=== PATIENT | female | born 1935 | race Caucasian/White ===

== ENCOUNTER 2018-03-03 06:09 | Inpatient (IN) | payer MEDICARE, BC ==
[2018-03-03 06:37] LABS: ABSOLUTE BASOPHILS # (AUTO) 0.1 10^3/uL (0.0-0.2); ABSOLUTE EOSINOPHILS # (AUTO) 0.1 10^3/uL (0.0-0.6); ABSOLUTE LYMPHOCYTES (AUTO) 1.9 10^3/uL (0.5-4.7); ABSOLUTE MONOCYTES (AUTO) 0.9 10^3/uL (0.1-1.4); ABSOLUTE NEUT (AUTO) 9.7 10^3/uL (1.7-8.2); BASOPHILS % (AUTO) 0.7 % (0-2); HEMATOCRIT 33.1 % (36.0-47.0); HEMOGLOBIN 11.2 g/dL (12.0-15.5); LYMPHOCYTES % (AUTO) 14.7 % (13-45); MEAN CORPUSCULAR HEMOGLOBIN 32.4 pg (27.0-33.4); MEAN CORPUSCULAR HGB CONC 33.9 g/dL (32.0-36.0); MEAN CORPUSCULAR VOLUME 96 fl (80-97); MONOCYTES % (AUTO) 7.4 % (3-13); PLATELET COUNT 416 10^3/uL (150-450); RED BLOOD COUNT 3.46 10^6/uL (3.72-5.28); RED CELL DISTRIBUTION WIDTH 13.9 % (11.5-14.0); SEGMENTED NEUTROPHILS % (AUTO) 76.2 % (42-78); TOTAL CELLS COUNTED % (AUTO) 100 %; WHITE BLOOD COUNT 12.7 10^3/uL (4.0-10.5)
--- NOTE | 2018-03-03 06:50 | RADIOLOGY REPORT (SQ) ---
EXAM DESCRIPTION: XR CHEST 1 VIEW COMPLETED DATE/TME: 03/03/2018 06:26 CLINICAL HISTORY: 82 years, Female, SOB COMPARISON: 03/11/2016 NUMBER OF VIEWS: One TECHNIQUE: AP view of the chest LIMITATIONS: None. FINDINGS: There is a moderate size right pleural effusion with right pulmonary airspace opacities. The left lung is clear. The heart is enlarged. There is no pneumothorax. IMPRESSION: Moderate right-sided pleural effusion with right pulmonary airspace opacities copyright 2010 [employer]- All Rights Reserved
[2018-03-03 06:52] LABS: ALANINE AMINOTRANSFERASE 19 U/L (9-52); ALBUMIN 3.6 g/dL (3.5-5.0); ALKALINE PHOSPHATASE 104 U/L (38-126); ANION GAP 14 (5-19); ASPARTATE AMINO TRANSFERASE 38 U/L (14-36); BILIRUBIN,DIRECT 0.3 mg/dL (0.0-0.4); BILIRUBIN,TOTAL 0.6 mg/dL (0.2-1.3); BLOOD UREA NITROGEN 17 mg/dL (7-20); CALCIUM 9.6 mg/dL (8.4-10.2); CARBON DIOXIDE 27 mmol/L (22-30); CHLORIDE 95 mmol/L (98-107); GLUCOSE 163 mg/dL (75-110); POTASSIUM 4.7 mmol/L (3.6-5.0); SODIUM 135.5 mmol/L (137-145)
[2018-03-03 06:55] LABS: CREATINE KINASE < 20 U/L (30-135)
--- NOTE | 2018-03-03 06:56 | ER Document Report ---
ED General - General Chief Complaint: Breathing Difficulty Stated Complaint: DIFFICULTY BREATHING Time Seen by Provider: 03/03/18 06:25 Notes: 82-year-old female with a history of unknown mediastinal mass and chronic pleural effusions on the right presents with shortness of breath. Patient began having difficulty breathing last night. Is progressively gotten worse and worse the patient saw cardiothoracic surgeon Dr. Garrett yesterday. He draw 50 cc of pleural fluid on the catheter. She was doing well up until last night when she slowly started getting worse and worse for shortness of breath. The patient was discharged last week from [place] because of the shortness of breath. The patient denies any fever or chills. Has had a nonproductive cough which has been typical along. Patient was a smoker but had quit 10 years ago. The patient denies any chest pain at this time his difficulty breathing. TRAVEL OUTSIDE OF THE [place] IN LAST 30 DAYS: No - Related Data Allergies/Adverse Reactions: procaine HCl [From Novocain] Allergy (Intermediate, Verified 03/11/16 11:06) SIGNIFICANT SWELLING AND BRUISING AT SITE OF INJ aloe polysaccharide [From Novacort] Allergy (Verified 03/11/16 11:06) hydrocortisone acetate [From Novacort] Allergy (Verified 03/11/16 11:06) pramoxine HCl [From Novacort] Allergy (Verified 03/11/16 11:06) morphine [Morphine] Adverse Reaction (Verified 03/11/16 11:06) Past Medical History - Social History Smoking Status: Unknown if Ever Smoked Family History: CAD - Past Medical History Cardiac Medical History: Reports: Hx Atrial Fibrillation, Hx Coronary Artery Disease, Hx Heart Attack, Hx Hypercholesterolemia, Hx Hypertension Denies: Hx Congestive Heart Failure, Hx Peripheral Vascular Disease, Hx Pulmonary Embolism, Hx Heart Murmur Pulmonary Medical History: Reports: Hx Pneumonia - A BABY Denies: Hx Asthma, Hx Bronchitis, Hx Respiratory Failure, Hx Sleep Apnea, Hx Tuberculosis Comment Only: Hx COPD - denies Endocrine Medical History: Reports: Hx Hypothyroidism - NEW DX, meds x 1 week only. Denies: Hx Graves' Disease, Hx Hyperthyroidism Renal/ Medical History: Denies: Hx End Stage Renal Disease, Hx Kidney Stones, Hx Peritoneal Dialysis Malignancy Medical History: Denies: Hx Lung Cancer GI Medical History: Reports: Hx Ulcer - son uncertain. Denies: Hx Crohn's Disease, Hx Hiatal Hernia, Hx Irritable Bowel, Hx Liver Failure, Hx Pancreatitis. Comment Only: Hx Gastroesophageal Reflux Disease - denies Musculoskeletal Medical History: Reports Hx Arthritis, Denies Hx Fibromyalgia, Denies Hx Muscular Dystrophy Psychiatric Medical History: Traumatic Medical History: Denies: Hx Fractures Past Surgical History: Reports: Hx Cardiac Catheterization - STENT, Hx Cardiac Surgery - BYPASS X 4, Hx Coronary Artery Bypass Graft - 4 vessel CABG 2004, Hx Orthopedic Surgery - RIGHT TKR. Denies: Hx Appendectomy, Hx Bowel Surgery, Hx Section, Hx Cholecystectomy, Hx Colostomy, Hx Gastric Bypass Surgery, Hx Herniorrhaphy, Hx Hysterectomy, Hx Mastectomy, Hx Tonsillectomy, Hx Tubal Ligation - Immunizations Hx Diphtheria, Pertussis, Tetanus Vaccination: Yes Hx Pneumococcal Vaccination: 12/28/08 Review of Systems - Review of Systems Constitutional: denies: Chills, Fever EENT: denies: Sinus discharge, Throat pain Cardiovascular: Orthopnea, Dyspnea, Edema. denies: Palpitations Respiratory: Short of breath. denies: Hurts to breathe Gastrointestinal: No symptoms reported. denies: Nausea, Vomiting Genitourinary: denies: Dysuria Skin: denies: Rash -: Yes All other systems reviewed and negative Physical Exam - Vital signs Vitals: Temp Pulse Resp BP Pulse Ox 97 F L 119 H 24 H 145/88 H 77 L 03/03/18 06:17 18 06:17 18 06:17 03/03/18 06:17 03/03/18 06:17 - Notes Notes: GENERAL_APPEARANCE: well_nourished, alert, cooperative, obvious respiratory distress VITALS: reviewed, see vital signs table. HEAD: no_swelling\tenderness on the head. EYES: PERRL, EOMI, conjunctiva_clear. NOSE: no_nasal_discharge. MOUTH: (-)decreased moisture. THROAT: no_throat_inflammation, no_airway_obstruction. no_lymphadenopathy NECK: supple, no_neck_tenderness, (-)thyromegaly. BACK: no_back_tenderness. CHEST_WALL: no_chest_tenderness. LUNGS: no_wheezing, no_rales, no_rhonchi, positive accessory muscle use, fair air exchange bilateral slightly less on the right HEART: normal_rate, normal_rhythm, normal_S1, normal_S2, (-)S3, (-)S4, no_ murmur, no_rub. ABDOMEN: normal_BS, soft, no_abd_tenderness, (-)guarding, (-)rebound, no_ organomegaly, no_abd_masses. EXTREMITIES: good pulses in all_extremities, no_swelling\tenderness in the extremities, 2+_edema. SKIN: warm, dry, good_color, no_rash. MENTAL_STATUS: speech_labored, oriented_X_3, normal_affect, responds_ appropriately to questions. Course - Re-evaluation Re-evalutation: 03/03/18 06:58 Patient presents with respiratory distress. Patient does have fluid in her lungs. She is in A. fib but looks like she is chronically in A. fib on her EKG. She is a little bit of rapid ventricular response of 115 and this may be due to hypoxia. She had sats in the 70s when she came in she is on 2 L at home but required 4 L to maintain a sat of 90 and above. 03/03/18 10:08 CT scan was positive for subacute subsegmental pulmonary embolism. The patient was off her Coumadin while she was in [place]. During this hospitalization that ended last week this is likely when the PE occurred. The patient restarted her Coumadin and is therapeutic at this time this is likely not a treatment failure since she had to go off her Coumadin for the Pleurx catheter. The patient is back on her Coumadin. I gave her 40 mg Lasix IV for CHF exacerbation. Her usual oxygen at home was 2 L but she is required 4 L here to maintain her saturations. I have spoken with our hospitalist service they will admit the patient. The patient and family absolutely refused to go back to [place] for further care. - Vital Signs Vital signs: Temp Pulse Resp BP Pulse Ox 97 F L 119 H 17 131/80 H 97 03/03/18 06:17 03/03/18 06:17 03/03/18 09:00 03/03/18 08:30 03/03/18 09:00 - Laboratory Result Diagrams: 03/03/18 06:24 03/03/18 06:24 Laboratory results interpreted by me: 03/03/18 03/03/18 03/03/18 06:24 06:24 06:24 WBC 12.7 H RBC 3.46 L Hgb 11.2 L Hct 33.1 L Absolute Neutrophils 9.7 H PT APTT 48.2 H Sodium 135.5 L Chloride 95 L Glucose 163 H AST 38 H Creatine Kinase < 20 L NT-Pro-B Natriuret Pep 03/03/18 03/03/18 06:24 06:24 WBC RBC Hgb Hct Absolute Neutrophils PT 25.8 H APTT Sodium Chloride Glucose AST Creatine Kinase NT-Pro-B Natriuret Pep 7320 H - EKG Interpretation by Me Rate: Tachycardia Rhythm: A.Fib Discharge - Discharge Clinical Impression: CHF exacerbation, Pleural effusion, Lung mass, Pulmonary embolism Condition: Fair Disposition: ADMITTED INPATIENT Admitting Provider: Hospitalist Unit Admitted: Telemetry Referrals: LARRY GREEN MD [Primary Care Provider] - Follow up as needed
[2018-03-03 07:04] LABS: NT PRO BNP 7320 pg/mL (<450); TROPONIN I < 0.012 ng/mL
[2018-03-03] MEDS ORDERED: FUROSEMIDE INJ/PF 100 MG/10 ML SDV IV ONE (08:50)
--- NOTE | 2018-03-03 09:19 | RADIOLOGY REPORT (SQ) ---
EXAM DESCRIPTION: CTA CHEST COMPLETED DATE/TIME: 03/03/2018 8:57 am REASON FOR STUDY: SOB COMPARISON: Chest films 03/03/2018, 03/13/2016, 11/18/2012 TECHNIQUE: CT scan of the chest performed using helical scanning technique with dynamic intravenous contrast injection. Images reviewed with lung, soft tissue and bone windows. Reconstructed coronal and sagittal MPR images reviewed. Additional 3 dimensional post-processing performed to develop Maximal Intensity Projection images (CT P). All images stored on PACS. All CT scanners at this facility use dose modulation, iterative reconstruction, and/or weight based d osing when appropriate to reduce radiation dose to as low as reasonably achievable (ALARA). [facility]: Dose Right [facility]: CareDose [facility]: Dose Right [facility]: Teradose 4D [facility]: FUNGO STUDIOS CONTRAST TYPE AND DOSE: contrast/concentration: Isovue 350.00 mg/ml; Total Contrast Delivered: 62.0 ml; Total Saline Delivered: 90.0 ml Contrast bolus optimized for the pulmonary arteries. Not diagnostic for the aorta. RENAL FUNCTION: Creatinine 0.6 RADIATION DOSE: CT Rad equipment meets quality standard of care and radiation dose reduction techniq ues were employed. CTDIvol: 16.0 - 19.8 mGy. DLP: 599 mGy-cm. . LIMITATIONS: None. FINDINGS: LUNGS AND PLEURA: There is dense persisting consolidation in the right upper and right low er lobe, similar compared to 12 5. A right-sided PleurX catheter is in place in the posterior costophrenic sulcus, with minimal residual right pleural effusion. The left lung is clear aside from minimal dependent atelectasis in the posterior costophrenic sulcus. Small to moderate left pleural effusion. 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 Descending and ascending thoracic aorta no ndilated. Very heavily calcified origin left proximal common carotid artery. HEART: Marked cardiomegaly with dilatation of the right ventricle and right atrium. Old sternotomy f or CABG with heavily calcified [place] coronary artery. Calcified aortic valve. No pericardial effus ion. PULMONARY ARTERIES: There is poor contrast opacification of the right upper lobe apical segmental pul monary artery and in the right lower lobe segmental pulmonary artery. Findings are worrisome for emb venu. Good filling of the left-sided pulmonary artery and major branches. HILAR AND MEDIASTINAL STRUCTURES: There is adenopathy in the mediastinum as follows: 3.3 x 1.8 cm precarinal lymph node axial image 47, 3.3 x 2.4 cm anterior mediastinal lymph node axial image 48, 3.2 x 1.7 cm anterior mediastinal lymph node axial image 50 HARDWARE: Right-sided PleurX catheter coiled in the posterior costophrenic sulcus. Old sternotomy. UPPER ABDOMEN: No significant findings. Limited exam. THYROID AND OTHER SOFT TISSUES: No masses. No adenopathy. BONES: No acute or significant finding. 3D MIPS: Confirm above findings. OTHER: No other significant finding. IMPRESSION: The poor filling of the right upper lobe apical segmental pulmonary artery and right bas ilar segmental pulmonary arteries worrisome for subacute pulmonary emboli. Persistent right lung dense consolidation with small right pleural effusion. Small to moderate left pleural effusion Significant cardiomegaly COMMENT: Quality ID # [id number]: Final reports with documentation of one or more dose reduction techniques (e.g., Automated exposure control, adjustment of the mA and/or kV according to patient size, use of iterative reconstruction technique) TECHNICAL DOCUMENTATION: JOB ID: [id number] [employer]- All Rights Reserved Reading location - IP/workstation name: [facility]
[2018-03-03 10:01] LABS: INTERNATIONAL RATION (INR) 2.23; PROTHROMBIN TIME 25.8 SEC (11.4-15.4)
--- NOTE | 2018-03-03 12:01 | EKG REPORT ---
SEVERITY:- ABNORMAL ECG - ATRIAL FIBRILLATION, V-RATE 92-155 INCOMPLETE RIGHT BUNDLE BRANCH BLOCK BORDERLINE PROLONGED QT INTERVAL : Confirmed by: Hoda Gordon 03-Mar-2018 12:00:32
--- NOTE | 2018-03-03 12:04 | PDOC H&P ---
History of Present Illness Admission Date/PCP: 03/03/18 10:11 LARRY GREEN MD Patient complains of: Shortness of breath History of Present Illness: PARISH NOVAK is a 82 year old female with history of COPD, history of chronic smoking, coronary artery disease status post quadruple bypass, atrial fibrillation on Coumadin, chronic congestive heart failure, hypothyroidism, hypertension, depression came to the emergency room with complaints of shortness of breath and wheezing from this morning. Patient and the family giving history that she woke up this morning with shortness of breath and rattling in the chest that means wheezing with occasional cough coughing up yellow sputum. Patient was seen by the thoracic surgeon at [facility] and the chest tube was drained with minimal amount coming out. As per the family chest tube was placed 2 weeks ago. Patient denies any fever, chills, sweating. Denies any headaches dizzy spells. She is given the history of loss of appetite. In the last 6 months she lost 25-30 pounds. Denies any problems with urination. Denies any constipation or diarrhea nausea vomiting. Denies any chest pains. Patient uses oxygen 2 L nasal cannula. Despite being on oxygen and using the nebulizer treatments at home the symptoms are not improved family decided to bring her to the hospital for further management. As per the family patient found to have a mediastinal mass and chronic pleural effusions status post biopsy as per the family nonmalignant. Patient was supposed to go for mediastinoscopy for lymph node biopsy but because of the patient's chronic conditions it was not done yet. As I mentioned above she was seen by Dr. Garrett cardiothoracic surgeon yesterday. Patient was recently admitted to [facility] for shortness of breath. Discharged after 3 days. Past Medical History Cardiac Medical History: Reports: Atrial Fibrillation, Coronary Artery Disease, Myocardial Infarction, Hyperlipidema, Hypertension Denies: Congestive Heart Failure, Peripheral Vascular Disease, Pulmonary Embolism, Heart Murmur Pulmonary Medical History: Reports: Pneumonia - A BABY Denies: Asthma, Bronchitis, Respiratory Failure, Sleep Apnea, Tuberculosis Comment Only: Chronic Obstructive Pulmonary Disease (COPD) - denies Endocrine Medical History: Reports: Hypothyroidism - NEW DX, meds x 1 week only Denies: Hyperthyroidism Renal/ Medical History: Denies: End Stage Renal Disease Malignancy Medical History: Reports: Other - Mediastinal mass. Denies: Lung Cancer GI Medical History: Denies: Crohn's Disease, Hiatal Hernia Comment Only: Gastroesophageal Reflux Disease - denies Musculoskeltal Medical History: Reports: Arthritis Denies: Fibromyalgia Psychiatric Medical History: Hematology: Comment Only: Anemia - denies Past Surgical History Past Surgical History: Reports: Cardiac Catheterization - STENT, Coronary Artery Bypass Graft - 4 vessel CABG 2004, Orthopedic Surgery - RIGHT TKR Denies: Amputation, Appendectomy, Section, Cholecystectomy, Colostomy, Gastric Bypass Surgery, Herniorrhaphy, Hysterectomy, Mastectomy, Tonsillectomy, Tubal Ligation Social History Smoking Status: Unknown if Ever Smoked Hx Recreational Drug Use: No Hx Prescription Drug Abuse: No - Advance Directive Resuscitation Status: Do Not Resuscitate Family History Family History: CAD Parental Family History Reviewed: Yes - Son is givihistory of diabetes hypertension coronary artery disease Children Family History Reviewed: Yes Sibling(s) Family History Reviewed.: Yes Medication/Allergy Home Medications: Aspirin [Aspirin 81 mg Chewable Tablet] 81 mg PO ASDIR 03/27/13 Levothyroxine Sodium [Synthroid] 25 mcg PO QAM 03/27/13 Losartan Potassium 100 mg PO QAM 03/27/13 Warfarin Sodium 2.5 mg PO ASDIR 03/27/13 Acetaminophen 500 mg PO Q6H PRN 03/11/16 Azithromycin [Zithromax 250 mg Tablet] 250 mg PO ASDIR PRN #6 tablet 03/11/16 Calcium Carbonate/Vitamin D3 [Caltrate 600 + D Soft Chew Tab] 1 each PO DAILY Furosemide [Lasix 40 mg Tablet] 40 mg PO QAM 03/11/16 Gluc Francois/Chondro Francois A/Vit C/Mn [Glucosamine 1,500 Complex Cap] 1 each PO DAILY Ipratropium [place] [Atrovent 0.06% Nasal [place]] 2 spray NASL QID PRN 03/11/16 Levalbuterol HCl [Xopenex] 2 puff IH Q4H PRN 03/11/16 Metoprolol Succinate 50 mg PO BID 03/11/16 Multivitamin [Multivitamins] 1 each PO DAILY 03/11/16 Simvastatin 20 mg PO DAILY 03/11/16 Spironolactone 25 mg PO DAILY 03/11/16 Umeclidinium Brm/Vilanterol Tr [Anoro Ellipta 62.5-25 Mcg INH] 1 each IH DAILY 03/11/16 Allergies/Adverse Reactions: procaine HCl [From Novocain] Allergy (Intermediate, Verified 03/11/16 11:06) SIGNIFICANT SWELLING AND BRUISING AT SITE OF INJ aloe polysaccharide [From Novacort] Allergy (Verified 03/11/16 11:06) hydrocortisone acetate [From Novacort] Allergy (Verified 03/11/16 11:06) pramoxine HCl [From Novacort] Allergy (Verified 03/11/16 11:06) morphine [Morphine] Adverse Reaction (Verified 03/11/16 11:06) Review of Systems Constitutional: PRESENT: weight loss, other - Patient given the history of weight loss of 25 pounds in the last 6 months.. ABSENT: fever(s) Eyes: ABSENT: visual disturbances Ears: PRESENT: other - Patient has chronic history of hearing difficulties. Nose, Mouth, and Throat: ABSENT: sore throat, vertigo Cardiovascular: PRESENT: dyspnea on exertion. ABSENT: orthropnea Respiratory: PRESENT: cough, dyspnea, sputum. ABSENT: hemoptysis Gastrointestinal: PRESENT: other - Loss of appetite. Neurological: ABSENT: abnormal gait, abnormal speech, confusion, dizziness, focal weakness, syncope Psychiatric: ABSENT: anxiety, depression, homidical ideation, suicidal ideation Physical Exam Vital Signs: Temp Pulse Resp BP Pulse Ox 97 F L 119 H 17 131/80 H 97 03/03/18 06:17 03/03/18 06:17 03/03/18 09:00 03/03/18 08:30 03/03/18 09:00 General appearance: PRESENT: no acute distress, other - Thin petite female comfortable in the bed. Head exam: PRESENT: atraumatic Eye exam: PRESENT: PERRLA Mouth exam: PRESENT: moist Neck exam: ABSENT: carotid bruit, JVD, lymphadenopathy, thyromegaly Respiratory exam: PRESENT: rhonchi, tachypnea, wheezes, other - Chest bilateral extensive wheezing is present in association with the decreased breath sounds. Cardiovascular exam: PRESENT: systolic murmur, tachycardia GI/Abdominal exam: PRESENT: normal bowel sounds, soft. ABSENT: distended, guarding, mass, organolmegaly, rebound, tenderness Neurological exam: PRESENT: alert, awake, oriented to person, oriented to place , oriented to time, oriented to situation, CN II-XII grossly intact. ABSENT: motor sensory deficit Results Impressions: Chest X-Ray 03/03/18 06:26 IMPRESSION: Moderate right-sided pleural effusion with right pulmonary airspace opacities copyright 2010 [employer]- All Rights Reserved Chest/Abdomen CTA 03/03/18 08:05 IMPRESSION: The poor filling of the right upper lobe apical segmental pulmonary artery and right basilar segmental pulmonary arteries worrisome for subacute pulmonary emboli. Persistent right lung dense consolidation with small right pleural effusion. Small to moderate left pleural effusion Significant cardiomegaly Assessment & Plan - Diagnosis (1) COPD exacerbation Is this a current diagnosis for this admission?: Yes Plan: 03[birth year]03/20185616-82-gbim-old female with history of COPD, mediastinal mass came with increased shortness of breath wheezing from this morning. She is requiring 4 L of oxygen via nasal cannula. To maintain the pulse ox more than 88%. Usually she is on 2 L nasal cannula at home. On examination chest bilateral extensive wheezing is present plan is to keep her on 4 L nasal cannula, IV Solu-Medrol 125 mg every 8 hours, DuoNeb nebulizations every 4 as needed, incentive spirometry. CT scan of the chest shows left lower lobe consolidation so requested for sputum culture blood cultures x2 started on IV Rocephin 1 g daily sorry Levaquin 40 mg IV daily.. (2) CHF exacerbation Is this a current diagnosis for this admission?: Yes Plan: 03/03/2018 patient has history of chronic CHF as per the family requested for echocardiogram when she came in during the examination crepitations at the bases. CT scan showing bilateral pleural effusions and pulmonary edema. She was given Lasix 40 mg IV in the ER. It helped in improving her breathing. Do not have the old records of the echocardiogram. Patient is going to be in pain shunt. Due to COPD exacerbation, chronic CHF with bilateral pleural effusions, CT scan showing subacute right upper lobe PE, right lower lobe consolidation she needs to be the hospital for more than 2 midnights. (3) Pulmonary embolism Qualifiers: Chronicity: unspecified Is this a current diagnosis for this admission?: Yes Plan: 03/03/2018 CT chest was done today with IV contrast shows a poor filling in the right upper lobe suggesting there is a subacute pulmonary embolism patient is on Coumadin 2.5 mg p.o.nightly today's creatinine is 2.2 it was therapeutic. We plan to restart her Coumadin 2.5 mg po qhsduring the admission continue the PT/INR check on daily basis. (4) Pneumonia Is this a current diagnosis for this admission?: Yes Plan: 03/03/2018-CT chest shows right lower lobe consolidation. Requested for sputum culture, blood cultures. Started on Rocephin 1 g daily and Levaquin 500 mg IV daily. Pulmonary consult was requested for mediastinal mass right upper lobe subacute PE and right lower lobe consolidation. Patient now on 4 L oxygen. (5) Atrial fibrillation Qualifiers: Atrial fibrillation type: chronic Qualified Code(s): I48.2 - Chronic atrial fibrillation Is this a current diagnosis for this admission?: Yes Plan: 03/03/2018 patient has history of chronic atrial fibrillation on Coumadin 2.5 mg p.o. nightly. The admission INR is 2.2. Plan is to restart the Coumadin and check the INR on daily basis. Cardiogram was requested. (6) HTN (hypertension) Is this a current diagnosis for this admission?: Yes Plan: 03/03/2018 patient has history of hypertension. Blood pressure today is 131/80. Patient's home medications are spironolactone 25 mg p.o. daily losartan 100 mg p.o. daily metoprolol 50 mg p.o. twice daily Lasix 40 mg p.o. every afternoon. I am going to restart her home medications and change Lasix from p.o. to IV during this hospital stay. (7) Hypothyroidism Is this a current diagnosis for this admission?: Yes Plan: Patient has history of hypothyroidism on levothyroxine 25 mcg p.o. daily. Plan is to restart the medication during the hospital stay. (8) Coronary artery disease involving autologous artery coronary bypass graft Is this a current diagnosis for this admission?: Yes Plan: 03/03/2018 patient has history of coronary artery disease status post quadruple bypass. Patient denies any chest pains during this hospital stay. Plan is to resume her home medications. - Time Time Spent: 30 to 50 Minutes Smoking Cessation Education: 3 to 10 minutes Medications reviewed and adjusted accordingly: Yes Anticipated discharge: Home
[2018-03-03 13:02] LABS: HEMATOCRIT 32.7 % (36.0-47.0); HEMOGLOBIN 11.3 g/dL (12.0-15.5); MEAN CORPUSCULAR HEMOGLOBIN 32.5 pg (27.0-33.4); MEAN CORPUSCULAR HGB CONC 34.5 g/dL (32.0-36.0); MEAN CORPUSCULAR VOLUME 94 fl (80-97); PLATELET COUNT 309 10^3/uL (150-450); RED BLOOD COUNT 3.47 10^6/uL (3.72-5.28); RED CELL DISTRIBUTION WIDTH 13.9 % (11.5-14.0); WHITE BLOOD COUNT 8.2 10^3/uL (4.0-10.5)
[2018-03-03 13:37] LABS: INTERNATIONAL RATION (INR) 2.45; PROTHROMBIN TIME 27.7 SEC (11.4-15.4)
[2018-03-03] MEDS: CEFTRIAXONE SODIUM 1,000 MG in DEXTROSE 5%-WATER 50 ML IV SCH (13:49)
[2018-03-03] MEDS: METHYLPREDNISOLONE INJ 125 MG/2 ML SDV IV SCH ×2 (14:32→22:26)
[2018-03-03 14:38] LABS: AMORPHOUS SEDIMENT,URINE 1+ /HPF; APPEARANCE,URINE TURBID; BILIRUBIN,URINE NEGATIVE (NEGATIVE); COLOR,URINE YELLOW; GLUCOSE, URINE NEGATIVE (NEGATIVE); KETONES,URINE NEGATIVE (NEGATIVE); LEUKOCYTE ESTERASE,URINE NEGATIVE (NEGATIVE); NITRITE,URINE NEGATIVE (NEGATIVE); PROTEIN,URINE 30 mg/dL (NEGATIVE); URINE SPECIFIC GRAVITY 1.046; UROBILINOGEN,URINE NEGATIVE mg/dL (<2.0)
--- NOTE | 2018-03-03 19:22 | XCELERA REPORT ---
[address] [address] Transthoracic Echocardiogram Report Name: PARISH NOVAK Age: 82 yrs Gender: Female : 1935 Patient Status: Inpatient Patient Location: [place] [address]^A Study Date: 03/03/2018 02:23 PM Height: 65 in Weight: 120 lb BSA: 1.6 m2 Procedure: A two-dimensional transthoracic echocardiogram with color flow and Doppler was performed. Study Quality: Technically suboptimal. The study was technically difficult with many images being suboptimal in quality. Images were not obtained from all of the standard acoustic windows due to the limited scope of the study. Reason For Study: chf History: CHF. Ordering Physician: LEONOR GAO Performed By: Serena Zheng Interpretation Summary Images were not obtained from all of the standard acoustic windows due to the limited scope of the study. The left ventricle is normal in size. There is normal left ventricular wall thickness. No True apical 2 chamber views obtained.Hence cannot comment on the apical anterior , the basal anterior, the basal inferior and apical inferior rodrigues.The mid anterior , the mid inferior and the rest of the LV rodrigues contract normally. .Normal LVEF is normal and is greater thn 60% in the limited views. Flattened septum is consistent with RV pressure/volume overload There is no thrombus. Doppler measurements suggest normal left ventricular diastolic function The right ventricle is moderately dilated. The right ventricular systolic function is moderate to severely reduced. The right atrium is moderate to severely dilated. The left atrium is severely dilated. There is mild mitral annular calcification. There is no evidence of mitral valve prolapse. There is no vegetation seen on the mitral valve. There is no mitral valve stenosis. There is a moderate amount of mitral regurgitation There is no aortic valvular vegetation. There is mild aortic stenosis There is a peak gradient of 23 mm of Hg. There is a mild amount of aortic regurgitation There is no LVOT obstruction. There is no tricuspid stenosis. There is a severe amount of tricuspid regurgitation There is servere pulmonary hypertension by echo There is no pulmonic valvular stenosis. There is a mild amount of pulmonic regurgitation There is no pericardial effusion. The interatrial septum is intact with no evidence for an atrial septal defect. The inferior vena cava appeared dilated and decreased < 50% with respiration (RAP 15-20 mmHg) RVSP is 110 to 115 mm of Hg , with RA mean of 15 to 20. MMode/2D Measurements & Calculations RVDd: 4.0 cm LVIDd: 4.3 cm FS: 32.0 % Ao root diam: 2.7 cm IVSd: 0.73 cm LVIDs: 2.9 cm EDV(Teich): 81.6 ml Ao root area: 5.6 cm2 LVPWd: 0.76 cm ESV(Teich): 32.2 ml LA dimension: 5.0 cm EF(Teich): 60.5 % LVOT diam: 2.0 cm LVOT area: 3.1 cm2 Doppler Measurements & Calculations MV E max rafael: MV P1/2t max rafael: Ao V2 max: AI max rafael: 142.6 cm/sec 143.6 cm/sec 235.6 cm/sec 369.2 cm/sec MV A max rafael: MV P1/2t: 47.6 msec Ao max PG: AI max P.9 cm/sec MVA(P1/2t): 4.6 cm2 22.2 mmHg 54.5 mmHg MV E/A: 3.2 MV dec slope: Ao V2 mean: AI dec slope: 161.9 cm/sec 306.9 cm/sec2 883.8 cm/sec2 Ao mean PG: AI P1/2t: MV dec time: 0.15 sec12.0 mmHg 352.4 msec Ao V2 VTI: 47.0 cm SOCORRO(I,D): 0.88 cm2 SOCORRO(V,D): 0.90 cm2 LV V1 max PG: SV(LVOT): 41.2 ml PA V2 max: PI end-d rafael: 1.9 mmHg 71.6 cm/sec 205.0 cm/sec LV V1 mean PG: PA max P.91 mmHg 2.0 mmHg LV V1 max: 68.4 cm/sec LV V1 mean: 44.1 cm/sec LV V1 VTI: 13.4 cm TR max rafael: AV P1/2t-pr_phl: MV P1/2t-pr_phl: 485.6 cm/sec 352.4 msec 47.6 msec TR max P.3 mmHg Left Ventricle The left ventricle is normal in size. There is normal left ventricular wall thickness. No True apical 2 chamber views obtained.Hence cannot comment on the apical anterior , the basal anterior, the basal inferior and apical inferior rodrigues.The mid anterior , the mid inferior and the rest of the LV rodrigues contract normally. .Normal LVEF is normal and is greater thn 60% in the limited views. Doppler measurements suggest normal left ventricular diastolic function. Flattened septum is consistent with RV pressure/volume overload. There is no thrombus. Right Ventricle The right ventricle is moderately dilated. The right ventricular systolic function is moderate to severely reduced. Atria The right atrium is moderate to severely dilated. The left atrium is severely dilated. The interatrial septum is intact with no evidence for an atrial septal defect. Mitral Valve There is mild mitral annular calcification. There is no evidence of mitral valve prolapse. There is no vegetation seen on the mitral valve. There is no mitral valve stenosis. There is a moderate amount of mitral regurgitation. Aortic Valve There is no aortic valvular vegetation. There is mild aortic stenosis. There is a peak gradient of 23 mm of Hg. There is no LVOT obstruction. There is a mild amount of aortic regurgitation. Tricuspid Valve There is no tricuspid stenosis. There is a severe amount of tricuspid regurgitation. There is servere pulmonary hypertension by echo. RVSP is 110 to 115 mm of Hg , with RA mean of 15 to 20. Pulmonic Valve There is no pulmonic valvular stenosis. There is a mild amount of pulmonic regurgitation. Great Vessels The aortic root is not well visualized. The inferior vena cava appeared dilated and decreased < 50% with respiration (RAP 15-20 mmHg). Effusions There is no pericardial effusion. : LEONOR GAO > Sheyla Rodriguez
[2018-03-03] MEDS: LEVOFLOXACIN 500 MG/D5W RTU 500 MG/100 ML RTUPB IV SCH (19:28)
[2018-03-03] MEDS: WARFARIN SODIUM 2.5 MG TABLET PO SCH (22:26)
[2018-03-03] MEDS: FUROSEMIDE INJ/PF 40 MG/4 ML SDV IV SCH (22:26)
[2018-03-03] MEDS: METOPROLOL SUCCINATE 50 MG TAB.SR.24H PO SCH (22:26)
[2018-03-04] MEDS: METHYLPREDNISOLONE INJ 125 MG/2 ML SDV IV SCH ×3 (05:16→22:35)
[2018-03-04 06:28] LABS: ABSOLUTE LYMPHOCYTES (AUTO) 0.4 10^3/uL (0.5-4.7); ABSOLUTE MONOCYTES (AUTO) 0.1 10^3/uL (0.1-1.4); BASOPHILS % (AUTO) 0.1 % (0-2); HEMATOCRIT 33.2 % (36.0-47.0); HEMOGLOBIN 11.4 g/dL (12.0-15.5); LYMPHOCYTES % (AUTO) 6.8 % (13-45); MEAN CORPUSCULAR HEMOGLOBIN 32.3 pg (27.0-33.4); MEAN CORPUSCULAR HGB CONC 34.4 g/dL (32.0-36.0); MEAN CORPUSCULAR VOLUME 94 fl (80-97); MONOCYTES % (AUTO) 1.1 % (3-13); PLATELET COUNT 292 10^3/uL (150-450); RED BLOOD COUNT 3.53 10^6/uL (3.72-5.28); TOTAL CELLS COUNTED % (AUTO) 100 %; WHITE BLOOD COUNT 6.6 10^3/uL (4.0-10.5)
[2018-03-04 06:35] LABS: INTERNATIONAL RATION (INR) 2.91; PROTHROMBIN TIME 31.8 SEC (11.4-15.4)
[2018-03-04 06:54] LABS: ALANINE AMINOTRANSFERASE 23 U/L (9-52); ALBUMIN 3.1 g/dL (3.5-5.0); ALKALINE PHOSPHATASE 88 U/L (38-126); ANION GAP 11 (5-19); ASPARTATE AMINO TRANSFERASE 26 U/L (14-36); BILIRUBIN,DIRECT 0.4 mg/dL (0.0-0.4); BILIRUBIN,TOTAL 0.6 mg/dL (0.2-1.3); BLOOD UREA NITROGEN 17 mg/dL (7-20); CALCIUM 9.1 mg/dL (8.4-10.2); CARBON DIOXIDE 32 mmol/L (22-30); CHLORIDE 93 mmol/L (98-107); GLUCOSE 127 mg/dL (75-110); POTASSIUM 4.7 mmol/L (3.6-5.0); SODIUM 135.8 mmol/L (137-145); TOTAL PROTEIN 6.1 g/dL (6.3-8.2)
[2018-03-04] MEDS ORDERED: LOSARTAN POTASSIUM 50 MG TABLET PO SCH (10:00)
[2018-03-04] MEDS ORDERED: CEFTRIAXONE INJ 1000 MG VIAL IV SCH (10:00)
[2018-03-04] MEDS ORDERED: LEVOTHYROXINE SODIUM 0.025 MG TABLET PO SCH (10:00)
[2018-03-04] MEDS: METOPROLOL SUCCINATE 50 MG TAB.SR.24H PO SCH ×2 (10:12→22:34)
[2018-03-04] MEDS: FUROSEMIDE INJ/PF 40 MG/4 ML SDV IV SCH ×2 (10:12→22:35)
[2018-03-04] MEDS: IPRATROPIUM/ALBUTEROL 0.5-2.5 MG/3 ML AMPUL NEB PRN (12:40)
[2018-03-04] MEDS: CEFTRIAXONE SODIUM 1,000 MG in DEXTROSE 5%-WATER 50 ML IV SCH (13:23)
[2018-03-04] MEDS: LEVOFLOXACIN 500 MG/D5W RTU 500 MG/100 ML RTUPB IV SCH (17:27)
--- NOTE | 2018-03-04 17:33 | PDOC PROGRESS REPORT ---
Subjective Progress Note for:: 03/04/18 Subjective:: The patient is an 82-year-old female with past medical history of atrial fibrillation (chronically anticoagulated on Coumadin) coronary artery disease, OR, remote CABG, CHF, hyperlipidemia, hypertension, COPD, hypothyroidism, arthritis, depression and recent admission to [facility] for acute respiratory failure, new diagnosis of mediastinal mass (initial biopsy benign), and bilateral pleural effusion s/p chest tube who was admitted 03/03/2018 for acute respiratory failure with hypoxia secondary to COPD exacerbation, CHF exacerbation, pulmonary embolism, and pneumonia. The patient was seen on morning rounds with her son present. She was found resting in bed comfortably on supplemental oxygen via nasal cannula at 4 L/min. The patient's son reports that she is only been prescribed oxygen for the previous month; has been using 2 L/min at home. She was discharged from [facility] approximately 3 days ago and has progressively worsened since that time. The patient reports that she is feeling much better today as compared to her time of admission. They both relate that they believe the IV Lasix has made a significant improvement in her breathing. They deny that she has had any peripheral edema. Patient denies fever, chills, headache, chest pain, palpitations, orthopnea, cough, abdominal pain, nausea vomiting and diarrhea. The patient has no questions or concerns at this time. The patient's son, however, understandably has many concerns regarding the patient's recently worsened respiratory status. Dr. Hurst was present at the end of the exam and was able to address many of his questions. No concerns per nursing. Reason For Visit: COPD EXACERBATION Physical Exam Vital Signs: Temp Pulse Resp BP Pulse Ox 97.7 F 92 16 106/56 L 96 03/04/18 15:37 03/04/18 15:37 03/04/18 15:37 03/04/18 15:37 03/04/18 15:37 Intake & Output 03/03/18 03/04/18 03/05/18 06:59 06:59 06:59 Intake Total 550 1003 Output Total 2100 Balance -1550 1003 General appearance: PRESENT: no acute distress, cooperative, hard of hearing, thin, well-developed Head exam: PRESENT: atraumatic, normocephalic Eye exam: PRESENT: conjunctiva pink, EOMI, PERRLA. ABSENT: scleral icterus Ear exam: PRESENT: normal external ear exam Mouth exam: PRESENT: moist, tongue midline Teeth exam: PRESENT: edentulous Neck exam: PRESENT: carotid bruit, JVD, lymphadenopathy. ABSENT: tenderness, thyromegaly Respiratory exam: PRESENT: decreased breath sounds - Bibasilar, prolonged expiratory phas, rhonchi - R>L, symmetrical, tachypnea. ABSENT: rales, wheezes Cardiovascular exam: PRESENT: irregular rhythm, +S1, +S2, systolic murmur. ABSENT: diastolic murmur, rubs Pulses: PRESENT: normal dorsalis pedis pul Vascular exam: PRESENT: normal capillary refill GI/Abdominal exam: PRESENT: normal bowel sounds, soft. ABSENT: distended, guarding, mass, organolmegaly, rebound, tenderness Rectal exam: PRESENT: deferred Extremities exam: PRESENT: full ROM. ABSENT: calf tenderness, clubbing, pedal edema Neurological exam: PRESENT: alert, awake, oriented to person, oriented to place , oriented to time, oriented to situation, CN II-XII grossly intact. ABSENT: motor sensory deficit Psychiatric exam: PRESENT: appropriate affect, normal mood. ABSENT: homicidal ideation, suicidal ideation Skin exam: PRESENT: dry, intact, pallor, warm. ABSENT: cyanosis, rash Results Laboratory Results: 03/04/18 05:51 03/04/18 05:51 03/04/18 03/04/18 05:51 05:51 WBC 6.6 RBC 3.53 L Hgb 11.4 L Hct 33.2 L MCV 94 MCH 32.3 MCHC 34.4 RDW 14.0 Plt Count 292 Seg Neutrophils % 92.0 H Lymphocytes % 6.8 L Monocytes % 1.1 L Eosinophils % 0.0 Basophils % 0.1 Absolute Neutrophils 6.0 Absolute Lymphocytes 0.4 L Absolute Monocytes 0.1 Absolute Eosinophils 0.0 Absolute Basophils 0.0 Sodium 135.8 L Potassium 4.7 Chloride 93 L Carbon Dioxide 32 H Anion Gap 11 BUN 17 Creatinine 0.67 Est GFR ( Amer) > 60 Est GFR (Non-Af Amer) > 60 Glucose 127 H Calcium 9.1 Magnesium 1.8 Total Bilirubin 0.6 AST 26 ALT 23 Alkaline Phosphatase 88 Total Protein 6.1 L Albumin 3.1 L Impressions: Chest X-Ray 03/03/18 06:26 IMPRESSION: Moderate right-sided pleural effusion with right pulmonary airspace opacities copyright 2010 [employer]- All Rights Reserved Chest/Abdomen CTA 03/03/18 08:05 IMPRESSION: The poor filling of the right upper lobe apical segmental pulmonary artery and right basilar segmental pulmonary arteries worrisome for subacute pulmonary emboli. Persistent right lung dense consolidation with small right pleural effusion. Small to moderate left pleural effusion Significant cardiomegaly Assessment & Plan - Diagnosis (1) Acute respiratory failure with hypoxia Is this a current diagnosis for this admission?: Yes Plan: The patient was admitted with acute respiratory failure with hypoxia secondary to a COPD exacerbation, CHF exacerbation, pulmonary embolus, pneumonia, and bilateral pleural effusions. Upon presentation she was noted to have PO2 of 77% on supplemental oxygen 2 L/ min associated with tachycardia, orthopnea, and dyspnea at rest. She has been admitted to the medical floor on continuous cardiac telemetry. She is provided supplemental oxygen as needed to maintain oxygen saturations greater than 89%. She is provided as needed nebulizer treatments. Diuresed with IV Lasix. Empirically treated for healthcare associated pneumonia with IV Rocephin and Levaquin. She is also provided IV Solu-Medrol. Pulmonology has been consulted. Specific disease related management as outlined below. (2) CHF exacerbation Qualifiers: Heart failure type: right-sided Qualified Code(s): I50.813 - Acute on chronic right heart failure Is this a current diagnosis for this admission?: Yes Plan: Echocardiogram reveals LVEF > 60% with normal ventricular diastolic function, evidence of RV pressure/volume overload, moderately dilated right ventricle, moderate to severely dilated right atrium, moderate to severely reduced right ventricular function, severe tricuspid regurgitation, and severe pulmonary hypertension by echocardiogram. ProBNP elevated to 7300; previously 3600 in 2016 She is being diuresed with IV Lasix 40 mg twice daily. Case catheter has been placed for strict I&Os. Continue home dose metoprolol. We will monitor daily weight. Cardiac diet. Consider cardiology consultation. (3) COPD exacerbation Is this a current diagnosis for this admission?: Yes Plan: Supplemental oxygen as needed to maintain oxygen saturations greater than 89%. As needed nebulizer treatments. To continue her home dose and Anoro. Mucinex twice daily. Incentive spirometer and flutter valve to bedside. Pulmonology has been consulted appreciate their assistance. (4) HTN (hypertension) Is this a current diagnosis for this admission?: Yes Plan: Normotensive. Continue the patient's home dose metoprolol. Cardiac diet. (5) Hypothyroidism Is this a current diagnosis for this admission?: Yes Plan: We will continue the patient's home dose levothyroxine. (6) Lung mass Is this a current diagnosis for this admission?: Yes Plan: Lung biopsy done this month reportedly benign per patient's family member. Possibly related to infectious process; treatment for pneumonia as outlined elsewhere. Pulmonology has been consulted; will defer further workup to to Dr. Hurst's expertise. (7) Pleural effusion Is this a current diagnosis for this admission?: Yes Plan: Unclear etiology; likely multifactorial secondary to infection, exacerbation, and possibly lung mass. The patient has a Pleurx drain to Rt chest that was placed during her admission to [facility]. Now draining 20-50 ml every other day; patient's son reports that it initially put out ~1L daily. Will continue to drain every other day. Remaining plan as outlined elsewhere. Pulmonology has been consulted. (8) Pneumonia Is this a current diagnosis for this admission?: Yes Plan: CT of the chest demonstrated a right lower lobe consolidation. Blood cultures are negative at 1 day. Sputum cultures pending. She is empirically placed on IV Rocephin and Levaquin; will adjust as cultures result. (9) Pulmonary embolism Qualifiers: Chronicity: unspecified Is this a current diagnosis for this admission?: Yes Plan: The patient is chronically anticoagulated on Coumadin for her atrial fibrillation. This medication was held while inpatient at [facility] for lung biopsies and chest tube placement. Coumadin was resumed on discharge approximately 4 days ago. She is noted to have a therapeutic INR of 2.91 today. We will continue her home dose Coumadin of 2.5 mg daily with daily INR checks. Supplemental oxygen to maintain oxygen saturations. Pulmonology has been consulted. (10) Atrial fibrillation Qualifiers: Atrial fibrillation type: chronic Qualified Code(s): I48.2 - Chronic atrial fibrillation Is this a current diagnosis for this admission?: Yes Plan: Continue home dose metoprolol and Coumadin. - Time Time Spent with patient: 25-34 minutes Medications reviewed and adjusted accordingly: Yes Anticipated discharge: Home with Homehealth
[2018-03-04] MEDS: GUAIFENESIN 600 MG TABLET.SA PO SCH (22:34)
[2018-03-04] MEDS: WARFARIN SODIUM 2.5 MG TABLET PO SCH (22:35)
[2018-03-05 05:29] LABS: HEMATOCRIT 32.6 % (36.0-47.0); HEMOGLOBIN 11.2 g/dL (12.0-15.5); MEAN CORPUSCULAR HEMOGLOBIN 32.5 pg (27.0-33.4); MEAN CORPUSCULAR HGB CONC 34.4 g/dL (32.0-36.0); MEAN CORPUSCULAR VOLUME 94 fl (80-97); PLATELET COUNT 272 10^3/uL (150-450); RED BLOOD COUNT 3.46 10^6/uL (3.72-5.28)
[2018-03-05 05:34] LABS: INTERNATIONAL RATION (INR) 3.91; PROTHROMBIN TIME 40.1 SEC (11.4-15.4)
[2018-03-05] MEDS: METHYLPREDNISOLONE INJ 125 MG/2 ML SDV IV SCH ×2 (05:40→14:23)
[2018-03-05] MEDS: LEVOTHYROXINE SODIUM 0.025 MG TABLET PO SCH (05:40)
[2018-03-05 05:59] LABS: ANION GAP 14 (5-19); BLOOD UREA NITROGEN 23 mg/dL (7-20); CARBON DIOXIDE 33 mmol/L (22-30); CHLORIDE 90 mmol/L (98-107); GLUCOSE 113 mg/dL (75-110); POTASSIUM 4.6 mmol/L (3.6-5.0); SODIUM 136.6 mmol/L (137-145)
[2018-03-05] MEDS ORDERED: FUROSEMIDE INJ/PF 40 MG/4 ML SDV IV SCH (08:48)
[2018-03-05] MEDS: FUROSEMIDE INJ/PF 20 MG/2 ML SDV IV SCH ×2 (09:43→22:43)
[2018-03-05] MEDS: GUAIFENESIN 600 MG TABLET.SA PO SCH ×2 (09:43→22:43)
[2018-03-05] MEDS: METOPROLOL SUCCINATE 50 MG TAB.SR.24H PO SCH ×2 (09:43→22:43)
[2018-03-05] MEDS ORDERED: [UNRECOGNIZED DRUG - MIXTURE] IH SCH (10:00)
[2018-03-05] MEDS: CEFTRIAXONE SODIUM 1,000 MG in DEXTROSE 5%-WATER 50 ML IV SCH (12:38)
[2018-03-05] MEDS: IPRATROPIUM/ALBUTEROL 0.5-2.5 MG/3 ML AMPUL NEB PRN (16:19)
[2018-03-05] MEDS: LEVOFLOXACIN 750 MG TABLET PO SCH (17:32)
--- NOTE | 2018-03-05 17:39 | PDOC PROGRESS REPORT ---
Subjective Progress Note for:: 03/05/18 Subjective:: The patient is an 82-year-old female with past medical history of atrial fibrillation (chronically anticoagulated on Coumadin) coronary artery disease, PR, remote CABG, CHF, hyperlipidemia, hypertension, COPD, hypothyroidism, arthritis, depression and recent admission to [facility] for acute respiratory failure, new diagnosis of mediastinal mass (initial biopsy benign), and bilateral pleural effusion s/p chest tube who was admitted 03/03/2018 for acute respiratory failure with hypoxia secondary to COPD exacerbation, CHF exacerbation, pulmonary embolism, and pneumonia. The patient was seen on morning rounds with her son present. She was found resting in bed comfortably on supplemental oxygen via nasal cannula at 2 L/min. The patient reports continued fatigue, shortness of breath, and nonproductive cough. However, she reports that she is feeling much better today. She denies fever, chills, headache, chest pain, palpitations, orthopnea, abdominal pain, nausea vomiting and diarrhea. They have no new questions or concerns at this time. No concerns per nursing. Reason For Visit: COPD EXACERBATION Physical Exam Vital Signs: Temp Pulse Resp BP Pulse Ox 97.2 F 99 16 129/79 H 97 03/05/18 15:44 03/05/18 16:21 03/05/18 16:21 03/05/18 15:44 03/05/18 16:21 Intake & Output 03/04/18 03/05/18 03/06/18 06:59 06:59 06:59 Intake Total 550 1673 50 Output Total 2100 850 Balance -1550 823 50 Weight 55.5 kg General appearance: PRESENT: no acute distress, hard of hearing, thin, well- developed, well-nourished Head exam: PRESENT: atraumatic, normocephalic Eye exam: PRESENT: conjunctiva pink, EOMI, PERRLA. ABSENT: scleral icterus Ear exam: PRESENT: normal external ear exam Mouth exam: PRESENT: moist, tongue midline Neck exam: ABSENT: carotid bruit, JVD, lymphadenopathy, thyromegaly Respiratory exam: PRESENT: decreased breath sounds - Bibasilar; greater on left , prolonged expiratory phas, rhonchi - Decreased from yesterday, symmetrical, unlabored, other - Supplemental oxygen at 2 L/min. ABSENT: rales, wheezes Cardiovascular exam: PRESENT: RRR. ABSENT: diastolic murmur, rubs, systolic murmur Pulses: PRESENT: normal dorsalis pedis pul Vascular exam: PRESENT: normal capillary refill GI/Abdominal exam: PRESENT: normal bowel sounds, soft. ABSENT: distended, guarding, mass, organolmegaly, rebound, tenderness Rectal exam: PRESENT: deferred Extremities exam: PRESENT: full ROM. ABSENT: calf tenderness, clubbing, pedal edema Neurological exam: PRESENT: alert, awake, oriented to person, oriented to place , oriented to time, oriented to situation, CN II-XII grossly intact. ABSENT: motor sensory deficit Psychiatric exam: PRESENT: appropriate affect, normal mood. ABSENT: homicidal ideation, suicidal ideation Skin exam: PRESENT: dry, intact, warm. ABSENT: cyanosis, rash Results Laboratory Results: 03/05/18 04:43 03/05/18 04:43 03/05/18 03/05/18 04:43 04:43 WBC 11.0 H RBC 3.46 L Hgb 11.2 L Hct 32.6 L MCV 94 MCH 32.5 MCHC 34.4 RDW 14.0 Plt Count 272 Sodium 136.6 L Potassium 4.6 Chloride 90 L Carbon Dioxide 33 H Anion Gap 14 BUN 23 H Creatinine 0.72 Est GFR ( Amer) > 60 Est GFR (Non-Af Amer) > 60 Glucose 113 H Calcium 9.0 03/05/18 04:43 NT-Pro-B Natriuret Pep 7290 H Impressions: Chest X-Ray 03/03/18 06:26 IMPRESSION: Moderate right-sided pleural effusion with right pulmonary airspace opacities copyright 2011 [employer]- All Rights Reserved Chest/Abdomen CTA 03/03/18 08:05 IMPRESSION: The poor filling of the right upper lobe apical segmental pulmonary artery and right basilar segmental pulmonary arteries worrisome for subacute pulmonary emboli. Persistent right lung dense consolidation with small right pleural effusion. Small to moderate left pleural effusion Significant cardiomegaly Assessment & Plan - Diagnosis (1) Acute respiratory failure with hypoxia Is this a current diagnosis for this admission?: Yes Plan: Improved; now on 2 L/min (baseline oxygen requirement). The patient was admitted with acute respiratory failure with hypoxia secondary to a COPD exacerbation, CHF exacerbation, pulmonary embolus, pneumonia, and bilateral pleural effusions. Upon presentation she was noted to have PO2 of 77% on supplemental oxygen 2 L/ min associated with tachycardia, orthopnea, and dyspnea at rest. She has been admitted to the medical floor on continuous cardiac telemetry. She is provided supplemental oxygen as needed to maintain oxygen saturations greater than 89%. She is provided as needed nebulizer treatments. Diuresed with IV Lasix. Empirically treated for healthcare associated pneumonia with IV Rocephin and Levaquin. She is also provided IV Solu-Medrol. Pulmonology has been consulted. Specific disease related management as outlined below. (2) CHF exacerbation Qualifiers: Heart failure type: right-sided Qualified Code(s): I50.813 - Acute on chronic right heart failure Is this a current diagnosis for this admission?: Yes Plan: Echocardiogram reveals LVEF > 60% with normal ventricular diastolic function, evidence of RV pressure/volume overload, moderately dilated right ventricle, moderate to severely dilated right atrium, moderate to severely reduced right ventricular function, severe tricuspid regurgitation, and severe pulmonary hypertension by echocardiogram. ProBNP elevated to 7300; unchanged today --> 7290 She is being diuresed with IV Lasix; will decrease to 20 mg twice daily. Case catheter has been placed for strict I&Os. Continue home dose metoprolol. We will monitor daily weight. Cardiac diet. Consider cardiology consultation. (3) COPD exacerbation Is this a current diagnosis for this admission?: Yes Plan: Improved; now maintaining oxygen saturations on her home requirement of 2lpm. Supplemental oxygen as needed to maintain oxygen saturations greater than 89%. As needed nebulizer treatments. To continue her home dose and Anoro. Mucinex twice daily. Incentive spirometer and flutter valve to bedside. Pulmonology has been consulted appreciate their assistance. (4) HTN (hypertension) Is this a current diagnosis for this admission?: Yes Plan: Normotensive. Continue the patient's home dose metoprolol. Cardiac diet. (5) Hypothyroidism Is this a current diagnosis for this admission?: Yes Plan: We will continue the patient's home dose levothyroxine. (6) Lung mass Is this a current diagnosis for this admission?: Yes Plan: Lung biopsy done this month reportedly benign per patient's family member. Possibly related to infectious process; treatment for pneumonia as outlined elsewhere. Pulmonology has been consulted; will defer further workup to to Dr. Hurst's expertise. (7) Pleural effusion Is this a current diagnosis for this admission?: Yes Plan: Unclear etiology; likely multifactorial secondary to infection, exacerbation, and possibly lung mass. The patient has a Pleurx drain to Rt chest that was placed during her admission to [facility]. Now draining 20-50 ml every other day; patient's son reports that it initially put out ~1L daily. Will continue to drain every other day; 40 ml drained today. Remaining plan as outlined elsewhere. Pulmonology has been consulted. (8) Pneumonia Is this a current diagnosis for this admission?: Yes Plan: CT of the chest demonstrated a right lower lobe consolidation. Blood cultures are negative at 48 hours. Sputum cultures pending. She is empirically placed on IV Rocephin and Levaquin; will adjust as cultures result. (9) Pulmonary embolism Qualifiers: Chronicity: unspecified Is this a current diagnosis for this admission?: Yes Plan: The patient is chronically anticoagulated on Coumadin for her atrial fibrillation. This medication was held while inpatient at [facility] for lung biopsies and chest tube placement. Coumadin was resumed on discharge approximately 4 days ago. Coumadin of 2.5 mg held secondary to INR 3.91 today. Daily PT/INR. Supplemental oxygen to maintain oxygen saturations. Pulmonology has been consulted. (10) Atrial fibrillation Qualifiers: Atrial fibrillation type: chronic Qualified Code(s): I48.2 - Chronic atrial fibrillation Is this a current diagnosis for this admission?: Yes Plan: Continue home dose metoprolol and Coumadin. - Time Time Spent with patient: 15-24 minutes Medications reviewed and adjusted accordingly: Yes Anticipated discharge: Home with Homehealth Within: within 72 hours
[2018-03-05] MEDS ORDERED: METHYLPREDNISOLONE INJ 125 MG/2 ML SDV IV SCH (17:45)
[2018-03-05] MEDS: METHYLPREDNISOLONE INJ 40 MG/1 ML SDV IV SCH (22:42)
[2018-03-06] MEDS: METHYLPREDNISOLONE INJ 40 MG/1 ML SDV IV SCH ×4 (05:25→21:47)
[2018-03-06] MEDS: LEVOTHYROXINE SODIUM 0.025 MG TABLET PO SCH (05:25)
[2018-03-06 06:47] LABS: HEMATOCRIT 32.9 % (36.0-47.0); HEMOGLOBIN 11.1 g/dL (12.0-15.5); MEAN CORPUSCULAR HEMOGLOBIN 31.7 pg (27.0-33.4); MEAN CORPUSCULAR HGB CONC 33.8 g/dL (32.0-36.0); MEAN CORPUSCULAR VOLUME 94 fl (80-97); PLATELET COUNT 291 10^3/uL (150-450); RED BLOOD COUNT 3.51 10^6/uL (3.72-5.28); RED CELL DISTRIBUTION WIDTH 13.8 % (11.5-14.0); WHITE BLOOD COUNT 11.6 10^3/uL (4.0-10.5)
[2018-03-06 06:52] LABS: INTERNATIONAL RATION (INR) 3.99; PROTHROMBIN TIME 40.7 SEC (11.4-15.4)
[2018-03-06 07:07] LABS: ANION GAP 12 (5-19); BLOOD UREA NITROGEN 32 mg/dL (7-20); CALCIUM 9.1 mg/dL (8.4-10.2); CARBON DIOXIDE 32 mmol/L (22-30); CHLORIDE 90 mmol/L (98-107); GLUCOSE 109 mg/dL (75-110); POTASSIUM 4.5 mmol/L (3.6-5.0); SODIUM 134.3 mmol/L (137-145)
[2018-03-06] MEDS ORDERED: PHYTONADIONE 5 MG TABLET PO ONE (09:00)
[2018-03-06] MEDS: METOPROLOL SUCCINATE 50 MG TAB.SR.24H PO SCH ×2 (09:37→21:47)
[2018-03-06] MEDS: GUAIFENESIN 600 MG TABLET.SA PO SCH ×2 (09:37→21:47)
[2018-03-06] MEDS: FUROSEMIDE INJ/PF 20 MG/2 ML SDV IV SCH (09:37)
[2018-03-06] MEDS: IPRATROPIUM/ALBUTEROL 0.5-2.5 MG/3 ML AMPUL NEB PRN ×2 (10:36→16:45)
[2018-03-06] MEDS: CEFTRIAXONE SODIUM 1,000 MG in DEXTROSE 5%-WATER 50 ML IV SCH (12:39)
--- NOTE | 2018-03-06 14:18 | PDOC PROGRESS REPORT ---
Subjective Progress Note for:: 03/06/18 Subjective:: The patient is an 82-year-old female with past medical history of atrial fibrillation (chronically anticoagulated on Coumadin) coronary artery disease, GA, remote CABG, CHF, hyperlipidemia, hypertension, COPD, hypothyroidism, arthritis, depression and recent admission to [facility] for acute respiratory failure, new diagnosis of mediastinal mass (initial biopsy benign), and bilateral pleural effusion s/p chest tube who was admitted 03/03/2018 for acute respiratory failure with hypoxia secondary to COPD exacerbation, CHF exacerbation, pulmonary embolism, and pneumonia. The patient was seen on morning rounds with her 2 sons present. She was found sitting upright to the recliner on supplemental oxygen via NC at 2lpm. She appears to be much more comfortable today than yesterday. She does report improved breathing, through with continued slight productive cough, fatigue, and generalized weakness. Patient states that she worked with physical therapy yesterday and was only able to take a few steps with assistance. The patient has many questions regarding the cause of her respiratory failure. We discussed the multiple factors including pulmonary embolus, mediastinal lymphadenopathy, pneumonia, pleural effusions, and right heart strain all contributing to her slow recovery. The patient does confide that if the lymph nodes were found to be cancerous, she would be very hesitant at pursuing surgical or chemotherapy interventions. However, she does express interest in relieving the pleural effusion on the left if this would improve her symptoms. The patient and family are agreeable with meeting palliative care services to discuss future goals of care. They would also like to speak with surgery to see if a Pleurx drain on the left would be a viable option for symptom management. All questions and concerns were addressed to the best of my abilities. No concerns per nursing. Reason For Visit: COPD EXACERBATION Physical Exam Vital Signs: Temp Pulse Resp BP Pulse Ox 97.5 F 103 H 21 H 145/71 H 96 03/06/18 11:40 03/06/18 11:40 03/06/18 11:40 03/06/18 11:40 03/06/18 11:40 Intake & Output 03/05/18 03/06/18 03/07/18 06:59 06:59 06:59 Intake Total 1673 1236 Output Total 850 1050 Balance 823 186 Weight 55.5 kg 55.6 kg General appearance: PRESENT: no acute distress, cooperative - pleasant, thin, well-developed, well-nourished Head exam: PRESENT: atraumatic, normocephalic Eye exam: PRESENT: conjunctiva pink, EOMI, PERRLA. ABSENT: scleral icterus Ear exam: PRESENT: normal external ear exam Mouth exam: PRESENT: moist, tongue midline Neck exam: ABSENT: carotid bruit, JVD, lymphadenopathy, thyromegaly Respiratory exam: PRESENT: decreased breath sounds - bibasilar; L>R, prolonged expiratory phas, rhonchi, symmetrical, unlabored, other - supplemental oxygen via NC. ABSENT: rales, wheezes Cardiovascular exam: PRESENT: RRR, other - pleurex drain Rt chest wall. ABSENT : diastolic murmur, rubs, systolic murmur Pulses: PRESENT: normal dorsalis pedis pul Vascular exam: PRESENT: normal capillary refill GI/Abdominal exam: PRESENT: normal bowel sounds, soft. ABSENT: distended, guarding, mass, organolmegaly, rebound, tenderness Rectal exam: PRESENT: deferred Extremities exam: PRESENT: full ROM. ABSENT: calf tenderness, clubbing, pedal edema Neurological exam: PRESENT: alert, awake, oriented to person, oriented to place , oriented to time, oriented to situation, CN II-XII grossly intact. ABSENT: motor sensory deficit Psychiatric exam: PRESENT: appropriate affect, normal mood. ABSENT: homicidal ideation, suicidal ideation Skin exam: PRESENT: dry, intact, warm. ABSENT: cyanosis, rash Results Laboratory Results: 03/06/18 06:35 03/06/18 06:35 03/06/18 03/06/18 06:35 06:35 WBC 11.6 H RBC 3.51 L Hgb 11.1 L Hct 32.9 L MCV 94 MCH 31.7 MCHC 33.8 RDW 13.8 Plt Count 291 Sodium 134.3 L Potassium 4.5 Chloride 90 L Carbon Dioxide 32 H Anion Gap 12 BUN 32 H Creatinine 0.75 Est GFR ( Amer) > 60 Est GFR (Non-Af Amer) > 60 Glucose 109 Calcium 9.1 03/05/18 04:43 NT-Pro-B Natriuret Pep 7290 H Impressions: Chest X-Ray 03/03/18 06:26 IMPRESSION: Moderate right-sided pleural effusion with right pulmonary airspace opacities copyright 2011 [employer]- All Rights Reserved Chest/Abdomen CTA 03/03/18 08:05 IMPRESSION: The poor filling of the right upper lobe apical segmental pulmonary artery and right basilar segmental pulmonary arteries worrisome for subacute pulmonary emboli. Persistent right lung dense consolidation with small right pleural effusion. Small to moderate left pleural effusion Significant cardiomegaly Assessment & Plan - Diagnosis (1) Acute respiratory failure with hypoxia Is this a current diagnosis for this admission?: Yes Plan: Improved; now on 2 L/min (baseline oxygen requirement). The patient was admitted with acute respiratory failure with hypoxia secondary to a COPD exacerbation, CHF exacerbation, pulmonary embolus, pneumonia, and bilateral pleural effusions. Upon presentation she was noted to have PO2 of 77% on supplemental oxygen 2 L/ min associated with tachycardia, orthopnea, and dyspnea at rest. She has been admitted to the medical floor on continuous cardiac telemetry. She is provided supplemental oxygen as needed to maintain oxygen saturations greater than 89%. She is provided as needed nebulizer treatments. Diuresed with IV Lasix. Empirically treated for healthcare associated pneumonia with IV Rocephin and Levaquin. She is also provided IV Solu-Medrol; will begin weaning. Pulmonology has been consulted. Specific disease related management as outlined below. Palliative Care and Discharge Planning are consulted. (2) CHF exacerbation Qualifiers: Heart failure type: right-sided Qualified Code(s): I50.813 - Acute on chronic right heart failure Is this a current diagnosis for this admission?: Yes Plan: Echocardiogram reveals LVEF > 60% with normal ventricular diastolic function, evidence of RV pressure/volume overload, moderately dilated right ventricle, moderate to severely dilated right atrium, moderate to severely reduced right ventricular function, severe tricuspid regurgitation, and severe pulmonary hypertension by echocardiogram. ProBNP elevated to 7300 --> 7290 She is being diuresed with IV Lasix; will decrease to 20 mg once daily. Case catheter has been placed for strict I&Os. Continue home dose metoprolol. We will monitor daily weight. Cardiac diet. Consider cardiology consultation. (3) COPD exacerbation Is this a current diagnosis for this admission?: Yes Plan: Improved; now maintaining oxygen saturations on her home requirement of 2lpm. Supplemental oxygen as needed to maintain oxygen saturations greater than 89%. As needed nebulizer treatments. To continue her home dose and Anoro. Mucinex twice daily. Incentive spirometer and flutter valve to bedside. Pulmonology has been consulted appreciate their assistance. (4) HTN (hypertension) Is this a current diagnosis for this admission?: Yes Plan: Normotensive. Continue the patient's home dose metoprolol. Cardiac diet. (5) Hypothyroidism Is this a current diagnosis for this admission?: Yes Plan: We will continue the patient's home dose levothyroxine. (6) Lung mass Is this a current diagnosis for this admission?: Yes Plan: Lung biopsy done this month reportedly benign per patient's family member. Possibly related to infectious process; treatment for pneumonia as outlined elsewhere. Pulmonology has been consulted; will defer further workup to to Dr. Hurst's expertise. (7) Pleural effusion Is this a current diagnosis for this admission?: Yes Plan: Unclear etiology; likely multifactorial secondary to infection, exacerbation, and possibly lung mass. The patient has a Pleurx drain to Rt chest that was placed during her admission to [facility]. Now draining 20-50 ml every other day; patient's son reports that it initially put out ~1L daily. Will continue to drain every other day; 40 ml drained yesterday. Remaining plan as outlined elsewhere. Pulmonology has been consulted. Surgery is consulted to evaluate for potential benefit of a Lt chest Pleurex drain. (8) Pneumonia Is this a current diagnosis for this admission?: Yes Plan: CT of the chest demonstrated a right lower lobe consolidation. Blood cultures are negative at 72 hours. Sputum cultures pending. She is empirically placed on IV Rocephin and Levaquin; will adjust as cultures result. (9) Pulmonary embolism Qualifiers: Chronicity: unspecified Is this a current diagnosis for this admission?: Yes Plan: The patient is chronically anticoagulated on Coumadin for her atrial fibrillation. This medication was held while inpatient at [facility] for lung biopsies and chest tube placement. Coumadin was resumed on discharge approximately 4 days ago. Coumadin of 2.5 mg held secondary to INR 3.99 today. Daily PT/INR. Supplemental oxygen to maintain oxygen saturations. Pulmonology has been consulted. (10) Atrial fibrillation Qualifiers: Atrial fibrillation type: chronic Qualified Code(s): I48.2 - Chronic atrial fibrillation Is this a current diagnosis for this admission?: Yes Plan: Continue home dose metoprolol. Holding Coumadin secondary to supratherapeutic INR. (11) Supratherapeutic INR Is this a current diagnosis for this admission?: Yes Plan: Elevated to 3.99. Coumadin held yesterday; continued to increase (3.91-->3.99). Continue to hold. Vit K 5 mg x1. Daily PT/INR - Time Time Spent with patient: 25-34 minutes Medications reviewed and adjusted accordingly: Yes Anticipated discharge: Home with Homehealth
[2018-03-07] MEDS: IPRATROPIUM/ALBUTEROL 0.5-2.5 MG/3 ML AMPUL NEB PRN ×2 (05:27→16:48)
[2018-03-07] MEDS: METHYLPREDNISOLONE INJ 40 MG/1 ML SDV IV SCH ×3 (05:42→22:12)
[2018-03-07] MEDS: LEVOTHYROXINE SODIUM 0.025 MG TABLET PO SCH (05:42)
[2018-03-07 05:59] LABS: HEMATOCRIT 33.6 % (36.0-47.0); HEMOGLOBIN 11.4 g/dL (12.0-15.5); MEAN CORPUSCULAR HGB CONC 33.9 g/dL (32.0-36.0); MEAN CORPUSCULAR VOLUME 94 fl (80-97); PLATELET COUNT 282 10^3/uL (150-450); RED BLOOD COUNT 3.56 10^6/uL (3.72-5.28); RED CELL DISTRIBUTION WIDTH 13.7 % (11.5-14.0); WHITE BLOOD COUNT 11.8 10^3/uL (4.0-10.5)
[2018-03-07 06:34] LABS: ANION GAP 14 (5-19); BLOOD UREA NITROGEN 33 mg/dL (7-20); CALCIUM 9.1 mg/dL (8.4-10.2); CARBON DIOXIDE 30 mmol/L (22-30); CHLORIDE 89 mmol/L (98-107); GLUCOSE 114 mg/dL (75-110); POTASSIUM 4.2 mmol/L (3.6-5.0); SODIUM 132.8 mmol/L (137-145)
[2018-03-07] MEDS ORDERED: FUROSEMIDE INJ/PF 20 MG/2 ML SDV IV SCH (08:00)
[2018-03-07] MEDS: METOPROLOL SUCCINATE 50 MG TAB.SR.24H PO SCH ×2 (09:11→22:12)
[2018-03-07] MEDS: GUAIFENESIN 600 MG TABLET.SA PO SCH ×2 (09:11→22:12)
[2018-03-07] MEDS: CEFTRIAXONE SODIUM 1,000 MG in DEXTROSE 5%-WATER 50 ML IV SCH (12:05)
--- NOTE | 2018-03-07 12:55 | PDOC CONSULTATION ---
Consultation Consult Date: 03/07/18 Attending physician:: ROGER NOVAK Consult reason:: Mediastinal adenopathy, lung consolidation, recurrent pleural effusion History of Present Illness Admission Date/PCP: 03/03/18 10:11 LARRY GREEN MD Patient complains of: Shortness of breath, cough History of Present Illness: PARISH NOVAK is a 82 year old female with recent history of recurrent right pleural effusion, she has a Pleurx catheter placed currently. She recently completed a admission at [facility], prior to that she had a 4 -5-week history of increasing shortness of breath and dyspnea on exertion, ultimately she landed at [facility] where she was found to have a large right pleural effusion and ultimately had a Pleurx catheter placed , the family tells me that she also had a bronchoscopy during that admission with biopsy, she also was found to have mediastinal adenopathy. CTA of the chest here shows right upper and middle lobe consolidation, mediastinal adenopathy. Also pulmonary embolism. She was supratherapeutic here during the admission so Coumadin has been held for now until the INR comes down. Past Medical History Cardiac Medical History: Reports: Atrial Fibrillation, Coronary Artery Disease, Myocardial Infarction, Hyperlipidema, Hypertension Denies: Congestive Heart Failure, Peripheral Vascular Disease, Pulmonary Embolism, Heart Murmur Pulmonary Medical History: Reports: Pneumonia - A BABY Denies: Asthma, Bronchitis, Respiratory Failure, Sleep Apnea, Tuberculosis Comment Only: Chronic Obstructive Pulmonary Disease (COPD) - denies Endocrine Medical History: Reports: Hypothyroidism - NEW DX, meds x 1 week only Denies: Hyperthyroidism Renal/ Medical History: Denies: End Stage Renal Disease Malignancy Medical History: Reports: Other - Mediastinal mass. Denies: Lung Cancer GI Medical History: Denies: Crohn's Disease, Hiatal Hernia Comment Only: Gastroesophageal Reflux Disease - denies Musculoskeltal Medical History: Reports: Arthritis Denies: Fibromyalgia Psychiatric Medical History: Hematology: Comment Only: Anemia - denies Past Surgical History Past Surgical History: Reports: Cardiac Catheterization - STENT, Coronary Artery Bypass Graft - 4 vessel CABG 2004, Orthopedic Surgery - RIGHT TKR Denies: Amputation, Appendectomy, Section, Cholecystectomy, Colostomy, Gastric Bypass Surgery, Herniorrhaphy, Hysterectomy, Mastectomy, Tonsillectomy, Tubal Ligation Social History Information Source: Patient Smoking Status: Former Smoker Cigarettes Packs Per Day: 1 Number of Years Smokin Last Time Smoked: 03/30/2007 Hx Recreational Drug Use: No Drugs: None Hx Prescription Drug Abuse: No - Advance Directive Resuscitation Status: Do Not Resuscitate Family History Family History: CAD Parental Family History Reviewed: Yes Children Family History Reviewed: Yes Sibling(s) Family History Reviewed.: Yes Medication/Allergy Home Medications: Calcium Carbonate/Vitamin D3 [Calcium 600 + Vitamin D Sftgl] 1 cap PO DAILY 08/14 Levothyroxine Sodium [Synthroid 0.025 mg Tablet] 25 mcg PO Q6AM 03/03/18 Metoprolol Succinate [Toprol Xl 50 mg Tab.sr] 50 mg PO BID 03/03/18 Multivitamin [Multiple Vitamins] 1 each PO DAILY 03/03/18 Simvastatin [Zocor 20 mg Tablet] 20 mg PO QHS 03/03/18 Umeclidinium Brm/Vilanterol Tr [Anoro Ellipta 62.5-25 Mcg INH] 2 puff IH DAILY 03/03/18 Warfarin Sodium [Coumadin 2.5 mg Tablet] 2.5 mg PO QHS 03/03/18 Allergies/Adverse Reactions: procaine HCl [From Novocain] Allergy (Intermediate, Verified 03/11/16 11:06) SIGNIFICANT SWELLING AND BRUISING AT SITE OF INJ aloe polysaccharide [From Novacort] Allergy (Verified 03/11/16 11:06) hydrocortisone acetate [From Novacort] Allergy (Verified 03/11/16 11:06) pramoxine HCl [From Novacort] Allergy (Verified 03/11/16 11:06) morphine [Morphine] Adverse Reaction (Verified 03/11/16 11:06) Review of Systems Constitutional: PRESENT: anorexia, fatigue, weakness, weight loss Cardiovascular: PRESENT: dyspnea on exertion, orthropnea Respiratory: PRESENT: cough, dyspnea Gastrointestinal: ABSENT: abdominal pain, constipation, diarrhea, hematemesis, hematochezia, nausea, vomiting Musculoskeletal: ABSENT: joint swelling Integumentary: ABSENT: rash, wounds Neurological: ABSENT: abnormal gait, abnormal speech, confusion, dizziness, focal weakness, syncope Physical Exam Vital Signs: Temp Pulse Resp BP Pulse Ox 98.1 F 108 H 18 124/58 L 94 03/07/18 07:52 03/07/18 07:52 03/07/18 07:52 03/07/18 07:52 03/07/18 07:52 Intake & Output 03/06/18 03/07/18 03/08/18 06:59 06:59 06:59 Intake Total 1236 1372 Output Total 1050 850 Balance 186 522 Weight 55.6 kg 55.8 kg General appearance: PRESENT: no acute distress, well-developed, well-nourished Head exam: PRESENT: atraumatic, normocephalic Eye exam: PRESENT: conjunctiva pink, EOMI, PERRLA. ABSENT: scleral icterus Ear exam: PRESENT: normal external ear exam Mouth exam: PRESENT: moist, tongue midline Neck exam: ABSENT: carotid bruit, JVD, lymphadenopathy, thyromegaly Respiratory exam: PRESENT: clear to auscultation jesus. ABSENT: rales, rhonchi, wheezes Cardiovascular exam: PRESENT: RRR. ABSENT: diastolic murmur, rubs, systolic murmur Pulses: PRESENT: normal dorsalis pedis pul Vascular exam: PRESENT: normal capillary refill GI/Abdominal exam: PRESENT: normal bowel sounds, soft. ABSENT: distended, guarding, mass, organolmegaly, rebound, tenderness Rectal exam: PRESENT: deferred Extremities exam: PRESENT: full ROM. ABSENT: calf tenderness, clubbing, pedal edema Neurological exam: PRESENT: alert, awake, oriented to person, oriented to place , oriented to time, oriented to situation, CN II-XII grossly intact. ABSENT: motor sensory deficit Psychiatric exam: PRESENT: appropriate affect, normal mood. ABSENT: homicidal ideation, suicidal ideation Skin exam: PRESENT: dry, intact, warm. ABSENT: cyanosis, rash Results Laboratory Results: 03/07/18 05:30 03/07/18 05:30 03/07/18 03/07/18 05:30 05:30 WBC 11.8 H RBC 3.56 L Hgb 11.4 L Hct 33.6 L MCV 94 MCH 32.0 MCHC 33.9 RDW 13.7 Plt Count 282 Sodium 132.8 L Potassium 4.2 Chloride 89 L Carbon Dioxide 30 Anion Gap 14 BUN 33 H Creatinine 0.62 Est GFR ( Amer) > 60 Est GFR (Non-Af Amer) > 60 Glucose 114 H Calcium 9.1 03/05/18 04:43 NT-Pro-B Natriuret Pep 7290 H Impressions: Chest X-Ray 03/03/18 06:26 IMPRESSION: Moderate right-sided pleural effusion with right pulmonary airspace opacities copyright 2011 [email or web address]- All Rights Reserved Chest/Abdomen CTA 03/03/18 08:05 IMPRESSION: The poor filling of the right upper lobe apical segmental pulmonary artery and right basilar segmental pulmonary arteries worrisome for subacute pulmonary emboli. Persistent right lung dense consolidation with small right pleural effusion. Small to moderate left pleural effusion Significant cardiomegaly Status: Image reviewed by me Assessment & Plan - Diagnosis (1) Lung mass Is this a current diagnosis for this admission?: Yes Plan: Patient with right lung opacities as well as mediastinal adenopathy, significant weight loss of 40+ pounds, overall picture certainly concerning for malignant process. In the setting of heavy tobacco use in the past, a primary lung cancer would be most likely if it is a malignancy. Unfortunately she is not strong enough to undergo a mediastinoscopy, it sounds like the bronchoscopy with biopsy was nondiagnostic as well as analysis of the pleural fluid at [facility], but we will need to get those official reports. I try to call over there today but there is nobody who could help out with getting the report today. Otherwise, after she becomes stronger the best mode of action would be a PET/CT as an outpatient, this would help delineate whether or not the mediastinal adenopathy is PET positive, because of its PET negative that it would not be worth going after it probably. I will follow and help out as an outpatient as well. (2) Pulmonary embolism Qualifiers: Chronicity: acute Is this a current diagnosis for this admission?: Yes Plan: PE, may be acute or chronic, she was on warfarin but was subtherapeutic as an outpatient, here she has been supratherapeutic so currently the warfarin is held. Once the INR gets under 2, it would be reasonable to consider 1 of the newer oral anticoagulants such as Xarelto or Eliquis. - Time Time Spent: Greater than 70 Minutes - Inpatient Certification Based on my medical assessment, after consideration of the patient's comorbidities, presenting symptoms, or acuity I expect that the services needed warrant INPATIENT care.: Yes I certify that my determination is in accordance with my understanding of Medicare's requirements for reasonable and necessary INPATIENT services [42 CFR 412.3e].: Yes Medical Necessity: Need for IV Antibiotics, Risk of Complication if Not Cared For in Hospital
--- NOTE | 2018-03-07 13:18 | PDOC PROGRESS REPORT ---
Subjective Progress Note for:: 03/07/18 Subjective:: The patient is an 82-year-old female with past medical history of atrial fibrillation (chronically anticoagulated on Coumadin) coronary artery disease, NE, remote CABG, CHF, hyperlipidemia, hypertension, COPD, hypothyroidism, arthritis, depression and recent admission to [facility] for acute respiratory failure, new diagnosis of mediastinal mass (initial biopsy benign), and bilateral pleural effusion s/p chest tube who was admitted 03/03/2018 for acute respiratory failure with hypoxia secondary to COPD exacerbation, CHF exacerbation, pulmonary embolism, and pneumonia. The patient was seen on morning rounds with multiple family members present. She was found resting in bed comfortably on 2lpm. She reports she had a "rough morning" but has improved following nebulizer treatments. Overall, she feels that her breathing is much better and she would like to try to ambulate with her family today. Patient and family have numerous questions regarding the mediastinal lymphadenopathy and probability of malignant diagnosis. Fortunately, Dr. Chavira was available to meet with them today to answer these questions. Patient and family express that long-term goal is to return to home with home health services; however are interested and short-term rehab after discharge. They would like to go to [facility] as the patient has had a good experience there before; I did inform them that we will need to verify the [facility] would be able to manage her Pleurx drains but otherwise felt that SNF for short-term rehab was an excellent option. No concerns per nursing. Reason For Visit: COPD EXACERBATION Physical Exam Vital Signs: Temp Pulse Resp BP Pulse Ox 98.1 F 108 H 18 124/58 L 94 03/07/18 07:52 03/07/18 07:52 03/07/18 07:52 03/07/18 07:52 03/07/18 07:52 Intake & Output 03/06/18 03/07/18 03/08/18 06:59 06:59 06:59 Intake Total 1236 1372 Output Total 1050 850 Balance 186 522 Weight 55.6 kg 55.8 kg General appearance: PRESENT: no acute distress, cooperative, thin, well- developed Head exam: PRESENT: atraumatic, normocephalic Eye exam: PRESENT: conjunctiva pink, EOMI, PERRLA. ABSENT: scleral icterus Ear exam: PRESENT: normal external ear exam Mouth exam: PRESENT: moist, tongue midline, other - Erythema; white plaques to soft palate Teeth exam: PRESENT: edentulous Neck exam: ABSENT: carotid bruit, JVD, lymphadenopathy, thyromegaly Respiratory exam: PRESENT: decreased breath sounds - L>R, prolonged expiratory phas, rhonchi, symmetrical, unlabored, other - supplemental oxygen via NC. ABSENT: rales, wheezes Cardiovascular exam: PRESENT: RRR, +S1, +S2. ABSENT: diastolic murmur, rubs, systolic murmur Pulses: PRESENT: normal dorsalis pedis pul Vascular exam: PRESENT: normal capillary refill GI/Abdominal exam: PRESENT: normal bowel sounds, soft. ABSENT: distended, guarding, mass, organolmegaly, rebound, tenderness Rectal exam: PRESENT: deferred Extremities exam: PRESENT: full ROM. ABSENT: calf tenderness, clubbing, pedal edema Neurological exam: PRESENT: alert, awake, oriented to person, oriented to place , oriented to time, oriented to situation, CN II-XII grossly intact. ABSENT: motor sensory deficit Psychiatric exam: PRESENT: appropriate affect, normal mood. ABSENT: homicidal ideation, suicidal ideation Skin exam: PRESENT: dry, intact, warm. ABSENT: cyanosis, rash Results Laboratory Results: 03/07/18 05:30 03/07/18 05:30 03/07/18 03/07/18 05:30 05:30 WBC 11.8 H RBC 3.56 L Hgb 11.4 L Hct 33.6 L MCV 94 MCH 32.0 MCHC 33.9 RDW 13.7 Plt Count 282 Sodium 132.8 L Potassium 4.2 Chloride 89 L Carbon Dioxide 30 Anion Gap 14 BUN 33 H Creatinine 0.62 Est GFR ( Amer) > 60 Est GFR (Non-Af Amer) > 60 Glucose 114 H Calcium 9.1 03/05/18 04:43 NT-Pro-B Natriuret Pep 7290 H Impressions: Chest X-Ray 03/03/18 06:26 IMPRESSION: Moderate right-sided pleural effusion with right pulmonary airspace opacities copyright 2011 [facility]- All Rights Reserved Chest/Abdomen CTA 03/03/18 08:05 IMPRESSION: The poor filling of the right upper lobe apical segmental pulmonary artery and right basilar segmental pulmonary arteries worrisome for subacute pulmonary emboli. Persistent right lung dense consolidation with small right pleural effusion. Small to moderate left pleural effusion Significant cardiomegaly Assessment & Plan - Diagnosis (1) Acute respiratory failure with hypoxia Is this a current diagnosis for this admission?: Yes Plan: Improved; now on 2 L/min (baseline oxygen requirement). The patient was admitted with acute respiratory failure with hypoxia secondary to a COPD exacerbation, CHF exacerbation, pulmonary embolus, pneumonia, and bilateral pleural effusions. Upon presentation she was noted to have PO2 of 77% on supplemental oxygen 2 L/ min associated with tachycardia, orthopnea, and dyspnea at rest. She has been admitted to the medical floor on continuous cardiac telemetry. She is provided supplemental oxygen as needed to maintain oxygen saturations greater than 89%. She is provided as needed nebulizer treatments. Diuresed with IV Lasix. Empirically treated for healthcare associated pneumonia with IV Rocephin and Levaquin. She is also provided IV Solu-Medrol; continue weaning. Pulmonology has been consulted. Specific disease related management as outlined below. Palliative Care and Discharge Planning are consulted. (2) CHF exacerbation Qualifiers: Heart failure type: right-sided Qualified Code(s): I50.813 - Acute on chronic right heart failure Is this a current diagnosis for this admission?: Yes Plan: Echocardiogram reveals LVEF > 60% with normal ventricular diastolic function, evidence of RV pressure/volume overload, moderately dilated right ventricle, moderate to severely dilated right atrium, moderate to severely reduced right ventricular function, severe tricuspid regurgitation, and severe pulmonary hypertension by echocardiogram. ProBNP elevated to 7300 --> 7290 Hold IV lasix. Case catheter has been placed for strict I&Os. Continue home dose metoprolol. We will monitor daily weight. Cardiac diet. Consider cardiology consultation. (3) COPD exacerbation Is this a current diagnosis for this admission?: Yes Plan: Improved; now maintaining oxygen saturations on her home requirement of 2lpm. Supplemental oxygen as needed to maintain oxygen saturations greater than 89%. As needed nebulizer treatments. To continue her home dose and Anoro. Continue weaning Solu-Medrol. Mucinex twice daily. Incentive spirometer and flutter valve to bedside. Pulmonology has been consulted appreciate their assistance. (4) HTN (hypertension) Is this a current diagnosis for this admission?: Yes Plan: Normotensive. Continue the patient's home dose metoprolol. Cardiac diet. (5) Hypothyroidism Is this a current diagnosis for this admission?: Yes Plan: We will continue the patient's home dose levothyroxine. (6) Lung mass Is this a current diagnosis for this admission?: Yes Plan: Lung biopsy done this month reportedly benign per patient's family member. Possibly related to infectious process; treatment for pneumonia as outlined elsewhere. Pulmonology has been consulted. spoke with Dr. Chavira today regarding family's numerous questions about next steps for evaluating mediastinal lymphadenopathy. Fortunately Dr. Chavira was able to meet with the family today. Plans to to have patient follow-up after discharge for PET scan. Appreciate his assistance. (7) Pleural effusion Is this a current diagnosis for this admission?: Yes Plan: Unclear etiology; likely multifactorial secondary to infection, exacerbation, and possibly lung mass. The patient has a Pleurx drain to Rt chest that was placed during her admission to [facility]. Now draining 20-50 ml every other day; patient's son reports that it initially put out ~1L daily. Will continue to drain every other day; 40 ml drained Thursday. Remaining plan as outlined elsewhere. Pulmonology has been consulted. Surgery is consulted to evaluate for potential benefit of a Lt chest Pleurex drain; will need to wait for INR to trend down. (8) Pneumonia Is this a current diagnosis for this admission?: Yes Plan: CT of the chest demonstrated a right lower lobe consolidation. Blood cultures are negative at 4 days. Sputum cultures have not been collected; patient does not have a productive cough. The patient has remained afebrile throughout the admission with downward trend in WBCs despite IV steroids; will discontinue Rocephin today (received 5 days). Continue p.o. Levaquin x 1 more dose (on q48 hours schedule). (9) Pulmonary embolism Qualifiers: Chronicity: acute Is this a current diagnosis for this admission?: Yes Plan: The patient is chronically anticoagulated on Coumadin for her atrial fibrillation. This medication was held while inpatient at [facility] for lung biopsies and chest tube placement. Coumadin was resumed on discharge approximately 4 days ago. Coumadin of 2.5 mg held secondary to INR 3.99. Daily PT/INR. Supplemental oxygen to maintain oxygen saturations. Pulmonology has been consulted. (10) Atrial fibrillation Qualifiers: Atrial fibrillation type: chronic Qualified Code(s): I48.2 - Chronic atrial fibrillation Is this a current diagnosis for this admission?: Yes Plan: Continue home dose metoprolol. Holding Coumadin secondary to supratherapeutic INR. (11) Supratherapeutic INR Is this a current diagnosis for this admission?: Yes Plan: Continues to increase (3.91-->3.99). Continue to hold.Coumadin. Vit K 5 mg x1 yesterday. Daily PT/INR Consider transition to Xarelto or Eliquis at discharge. - Time Time Spent with patient: 25-34 minutes Medications reviewed and adjusted accordingly: Yes Anticipated discharge: SNF - Short term rehab
[2018-03-07 13:27] LABS: INTERNATIONAL RATION (INR) 1.28
[2018-03-07 13:28] LABS: PROTHROMBIN TIME 16.7 SEC (11.4-15.4)
[2018-03-07] MEDS ORDERED: GLUCAGON,HUMAN RECOMB 1 MG INJ SUBCUT PRN (16:55)
[2018-03-07] MEDS ORDERED: DEXTROSE 40% GEL 15 GM TUBE PO PRN ×2 (16:55)
[2018-03-07] MEDS ORDERED: DEXTROSE 50%-WATER 25 GM/50 ML DISP.SYRIN IV PRN ×2 (16:55)
[2018-03-07] MEDS: LEVOFLOXACIN 750 MG TABLET PO SCH (17:11)
[2018-03-07] MEDS ORDERED: NYSTATIN 500000 UNIT/5 ML UDCUP PO SCH (18:00)
--- NOTE | 2018-03-07 21:56 | PDOC CONSULTATION ---
History of Present Illness Admission Date/PCP: 03/03/18 10:11 LARRY GREEN MD Patient complains of: some shortness of breath History of Present Illness: PARISH NOVAK is a 82 year old female who has a right pleurx tube placed at [facility] about 3 weeks ago. Has more left pleural effusion on Ct scan of chest. Was asked to place a pleurx tube on the left chest. Her INR yesterday was 3.9. She was on coumadin that was stopped and also had Vit K. Past Medical History Cardiac Medical History: Reports: Atrial Fibrillation, Coronary Artery Disease, Myocardial Infarction, Hyperlipidema, Hypertension Denies: Congestive Heart Failure, Peripheral Vascular Disease, Pulmonary Embolism, Heart Murmur Pulmonary Medical History: Reports: Pneumonia - A BABY Denies: Asthma, Bronchitis, Respiratory Failure, Sleep Apnea, Tuberculosis Comment Only: Chronic Obstructive Pulmonary Disease (COPD) - denies Endocrine Medical History: Reports: Hypothyroidism - NEW DX, meds x 1 week only Denies: Hyperthyroidism Renal/ Medical History: Denies: End Stage Renal Disease Malignancy Medical History: Reports: Other - Mediastinal mass. Denies: Lung Cancer GI Medical History: Denies: Crohn's Disease, Hiatal Hernia Comment Only: Gastroesophageal Reflux Disease - denies Musculoskeltal Medical History: Reports: Arthritis Denies: Fibromyalgia Psychiatric Medical History: Hematology: Comment Only: Anemia - denies Past Surgical History Past Surgical History: Reports: Cardiac Catheterization - STENT, Coronary Artery Bypass Graft - 4 vessel CABG 2004, Orthopedic Surgery - RIGHT TKR Denies: Amputation, Appendectomy, Section, Cholecystectomy, Colostomy, Gastric Bypass Surgery, Herniorrhaphy, Hysterectomy, Mastectomy, Tonsillectomy, Tubal Ligation Social History Smoking Status: Former Smoker Cigarettes Packs Per Day: 1 Number of Years Smokin Last Time Smoked: 03/30/2007 Hx Recreational Drug Use: No Drugs: None Hx Prescription Drug Abuse: No - Advance Directive Resuscitation Status: Do Not Resuscitate Family History Family History: CAD Parental Family History Reviewed: Yes Children Family History Reviewed: No Sibling(s) Family History Reviewed.: No Medication/Allergy Home Medications: Calcium Carbonate/Vitamin D3 [Calcium 600 + Vitamin D Sftgl] 1 cap PO DAILY 08/14 Levothyroxine Sodium [Synthroid 0.025 mg Tablet] 25 mcg PO Q6AM 03/03/18 Metoprolol Succinate [Toprol Xl 50 mg Tab.sr] 50 mg PO BID 03/03/18 Multivitamin [Multiple Vitamins] 1 each PO DAILY 03/03/18 Simvastatin [Zocor 20 mg Tablet] 20 mg PO QHS 03/03/18 Umeclidinium Brm/Vilanterol Tr [Anoro Ellipta 62.5-25 Mcg INH] 2 puff IH DAILY 03/03/18 Warfarin Sodium [Coumadin 2.5 mg Tablet] 2.5 mg PO QHS 03/03/18 Allergies/Adverse Reactions: procaine HCl [From Novocain] Allergy (Intermediate, Verified 03/11/16 11:06) SIGNIFICANT SWELLING AND BRUISING AT SITE OF INJ aloe polysaccharide [From Novacort] Allergy (Verified 03/11/16 11:06) hydrocortisone acetate [From Novacort] Allergy (Verified 03/11/16 11:06) pramoxine HCl [From Novacort] Allergy (Verified 03/11/16 11:06) morphine [Morphine] Adverse Reaction (Verified 03/11/16 11:06) Review of Systems Constitutional: PRESENT: other - no fever/chills Eyes: PRESENT: other - no visual changes Ears: PRESENT: other - wears hearing aids Cardiovascular: PRESENT: other - no chest pains Respiratory: PRESENT: dyspnea Gastrointestinal: PRESENT: other - no pains Genitourinary: PRESENT: other - no dysuria Neurological: PRESENT: weakness Physical Exam Vital Signs: Temp Pulse Resp BP Pulse Ox 97.3 F 92 18 131/63 H 95 03/07/18 20:31 03/07/18 20:31 03/07/18 20:31 03/07/18 20:31 03/07/18 20:31 Intake & Output 03/06/18 03/07/18 03/08/18 06:59 06:59 06:59 Intake Total 1236 1372 450 Output Total 4718 544 5777 Balance 186 522 -950 Weight 55.6 kg 55.8 kg General appearance: PRESENT: mild distress Head exam: PRESENT: atraumatic Eye exam: PRESENT: conjunctiva pink Mouth exam: PRESENT: moist Neck exam: PRESENT: full ROM Respiratory exam: PRESENT: decreased breath sounds Cardiovascular exam: PRESENT: RRR Pulses: PRESENT: normal radial pulses Vascular exam: PRESENT: normal capillary refill Rectal exam: PRESENT: deferred Neurological exam: PRESENT: alert, oriented to person, oriented to place, oriented to time, oriented to situation Skin exam: PRESENT: normal color, warm Results Laboratory Results: 03/07/18 05:30 03/07/18 05:30 03/07/18 03/07/18 05:30 05:30 WBC 11.8 H RBC 3.56 L Hgb 11.4 L Hct 33.6 L MCV 94 MCH 32.0 MCHC 33.9 RDW 13.7 Plt Count 282 Sodium 132.8 L Potassium 4.2 Chloride 89 L Carbon Dioxide 30 Anion Gap 14 BUN 33 H Creatinine 0.62 Est GFR ( Amer) > 60 Est GFR (Non-Af Amer) > 60 Glucose 114 H Calcium 9.1 03/05/18 04:43 NT-Pro-B Natriuret Pep 7290 H Impressions: Chest X-Ray 03/03/18 06:26 IMPRESSION: Moderate right-sided pleural effusion with right pulmonary airspace opacities copyright 2011 [employer]- All Rights Reserved Chest/Abdomen CTA 03/03/18 08:05 IMPRESSION: The poor filling of the right upper lobe apical segmental pulmonary artery and right basilar segmental pulmonary arteries worrisome for subacute pulmonary emboli. Persistent right lung dense consolidation with small right pleural effusion. Small to moderate left pleural effusion Significant cardiomegaly Assessment & Plan - Diagnosis (1) Pleural effusion Is this a current diagnosis for this admission?: Yes - Time Time Spent: 30 to 50 Minutes - Inpatient Certification Medical Necessity: Need for IV Antibiotics, Risk of Complication if Not Cared For in Hospital - Plan Summary Plan Summary: I have the cytotechnologist scan her left side. Appears to have a small amount of effusion. Will recheck CXR Check INR in am.
--- NOTE | 2018-03-07 22:04 | RADIOLOGY REPORT (SQ) ---
US CHEST HISTORY: Chest tube placement COMPARISON: None. TECHNIQUE: Grayscale and color Doppler images of the chest were obtained. FINDINGS: There is a moderate amount of fluid in the left pleural space, adjacent to the heart. The largest pocket measures approximately 7 cm. IMPRESSION: Moderate-sized left pleural effusion.
--- NOTE | 2018-03-07 23:14 | RADIOLOGY REPORT (SQ) ---
EXAM DESCRIPTION: XR CHEST COMPLETED DATE/TME: 03/07/2018 21:42 CLINICAL HISTORY: 82 years Female, cxr PA/LAT with left decubitus for pleurex drain COMPARISON: Chest PA lateral, concurrent. CT and CR, March 03, 2018. NUMBER OF VIEWS/TECHNIQUE: 1/AP FINDINGS: Left lateral decubitus demonstrates a layering moderate left pleural effusion. Else, stable including mixed moderate airspace and interstitial opacities, right more than left. No pneumothorax. Right basilar chest tube.. IMPRESSION: Moderate layering left pleural effusion. Else, stable.
[2018-03-08] MEDS: LEVOTHYROXINE SODIUM 0.025 MG TABLET PO SCH (05:12)
[2018-03-08] MEDS: METHYLPREDNISOLONE INJ 40 MG/1 ML SDV IV SCH (05:12)
[2018-03-08 05:14] LABS: HEMATOCRIT 32.2 % (36.0-47.0); HEMOGLOBIN 11.1 g/dL (12.0-15.5); MEAN CORPUSCULAR HEMOGLOBIN 32.4 pg (27.0-33.4); MEAN CORPUSCULAR HGB CONC 34.6 g/dL (32.0-36.0); MEAN CORPUSCULAR VOLUME 94 fl (80-97); PLATELET COUNT 253 10^3/uL (150-450); RED BLOOD COUNT 3.44 10^6/uL (3.72-5.28); RED CELL DISTRIBUTION WIDTH 13.8 % (11.5-14.0); WHITE BLOOD COUNT 10.4 10^3/uL (4.0-10.5)
[2018-03-08 05:20] LABS: PROTHROMBIN TIME 16.8 SEC (11.4-15.4)
[2018-03-08 05:35] LABS: ANION GAP 12 (5-19); BLOOD UREA NITROGEN 32 mg/dL (7-20); CARBON DIOXIDE 33 mmol/L (22-30); CHLORIDE 89 mmol/L (98-107); GLUCOSE 98 mg/dL (75-110); POTASSIUM 4.3 mmol/L (3.6-5.0); SODIUM 134.1 mmol/L (137-145)
--- NOTE | 2018-03-08 08:05 | PDOC PROGRESS REPORT ---
Subjective Progress Note for:: 03/08/18 Subjective:: Patient is planned for thoracentesis on the left today, I do not have any further information from [facility]. Reason For Visit: COPD EXACERBATION Physical Exam Vital Signs: Temp Pulse Resp BP Pulse Ox 97.9 F 84 18 139/65 H 93 03/08/18 06:00 03/08/18 06:00 03/08/18 06:00 03/08/18 06:00 03/08/18 06:00 Intake & Output 03/07/18 03/08/18 03/09/18 06:59 06:59 06:59 Intake Total 1372 550 Output Total 850 1950 Balance 522 -1400 Weight 55.8 kg 55.9 kg General appearance: PRESENT: no acute distress, well-developed, well-nourished Head exam: PRESENT: atraumatic, normocephalic Eye exam: PRESENT: conjunctiva pink, EOMI, PERRLA. ABSENT: scleral icterus Ear exam: PRESENT: normal external ear exam Mouth exam: PRESENT: moist, tongue midline Neck exam: ABSENT: carotid bruit, JVD, lymphadenopathy, thyromegaly Respiratory exam: PRESENT: clear to auscultation jesus. ABSENT: rales, rhonchi, wheezes Cardiovascular exam: PRESENT: RRR. ABSENT: diastolic murmur, rubs, systolic murmur Pulses: PRESENT: normal dorsalis pedis pul Vascular exam: PRESENT: normal capillary refill GI/Abdominal exam: PRESENT: normal bowel sounds, soft. ABSENT: distended, guarding, mass, organolmegaly, rebound, tenderness Rectal exam: PRESENT: deferred Extremities exam: PRESENT: full ROM. ABSENT: calf tenderness, clubbing, pedal edema Neurological exam: PRESENT: alert, awake, oriented to person, oriented to place , oriented to time, oriented to situation, CN II-XII grossly intact. ABSENT: motor sensory deficit Psychiatric exam: PRESENT: appropriate affect, normal mood. ABSENT: homicidal ideation, suicidal ideation Skin exam: PRESENT: dry, intact, warm. ABSENT: cyanosis, rash Results Laboratory Results: 03/08/18 04:25 03/08/18 04:25 03/08/18 03/08/18 04:25 04:25 WBC 10.4 RBC 3.44 L Hgb 11.1 L Hct 32.2 L MCV 94 MCH 32.4 MCHC 34.6 RDW 13.8 Plt Count 253 Sodium 134.1 L Potassium 4.3 Chloride 89 L Carbon Dioxide 33 H Anion Gap 12 BUN 32 H Creatinine 0.61 Est GFR ( Amer) > 60 Est GFR (Non-Af Amer) > 60 Glucose 98 Calcium 9.0 03/05/18 04:43 NT-Pro-B Natriuret Pep 7290 H Impressions: Chest X-Ray 03/03/18 06:26 IMPRESSION: Moderate right-sided pleural effusion with right pulmonary airspace opacities copyright 2010 [employer]- All Rights Reserved Chest/Abdomen CTA 03/03/18 08:05 IMPRESSION: The poor filling of the right upper lobe apical segmental pulmonary artery and right basilar segmental pulmonary arteries worrisome for subacute pulmonary emboli. Persistent right lung dense consolidation with small right pleural effusion. Small to moderate left pleural effusion Significant cardiomegaly Chest Ultrasound 03/07/18 00:00 IMPRESSION: Moderate-sized left pleural effusion. Apical Lordotic X-Ray 03/07/18 21:42 IMPRESSION: Moderate layering left pleural effusion. Else, stable. Assessment & Plan - Diagnosis (1) Lung mass Is this a current diagnosis for this admission?: Yes Plan: Concerning for primary lung cancer, awaiting biopsy results from [facility]. (2) Pulmonary embolism Qualifiers: Chronicity: acute Is this a current diagnosis for this admission?: Yes Plan: Continue with monitoring INR, would initiate Xarelto or Eliquis when INR gets under 2. - Time Time Spent with patient: 35 or more minutes - Inpatient Certification Based on my medical assessment, after consideration of the patient's comorbidities, presenting symptoms, or acuity I expect that the services needed warrant INPATIENT care.: Yes I certify that my determination is in accordance with my understanding of Medicare's requirements for reasonable and necessary INPATIENT services [42 CFR 412.3e].: Yes Medical Necessity: Need for Surgery, Risk of Complication if Not Cared For in Hospital
--- NOTE | 2018-03-08 09:38 | PDOC PROGRESS REPORT ---
Subjective Subjective:: Significant shortness of breath; upper respiratory gurgling Reason For Visit: COPD EXACERBATION Physical Exam Vital Signs: Temp Pulse Resp BP Pulse Ox 97.9 F 84 18 139/65 H 93 03/08/18 06:00 03/08/18 06:00 03/08/18 06:00 03/08/18 06:00 03/08/18 06:00 Intake & Output 03/07/18 03/08/18 03/09/18 06:59 06:59 06:59 Intake Total 1372 550 Output Total 850 1950 Balance 522 -1400 Weight 55.8 kg 55.9 kg General appearance: PRESENT: mild distress Respiratory exam: PRESENT: rhonchi, other - Decreased breath sounds bilaterally ; Pleurx catheter on the right side. Results Laboratory Results: 03/08/18 04:25 03/08/18 04:25 03/08/18 03/08/18 04:25 04:25 WBC 10.4 RBC 3.44 L Hgb 11.1 L Hct 32.2 L MCV 94 MCH 32.4 MCHC 34.6 RDW 13.8 Plt Count 253 Sodium 134.1 L Potassium 4.3 Chloride 89 L Carbon Dioxide 33 H Anion Gap 12 BUN 32 H Creatinine 0.61 Est GFR ( Amer) > 60 Est GFR (Non-Af Amer) > 60 Glucose 98 Calcium 9.0 03/05/18 04:43 NT-Pro-B Natriuret Pep 7290 H Impressions: Chest X-Ray 03/03/18 06:26 IMPRESSION: Moderate right-sided pleural effusion with right pulmonary airspace opacities copyright 2011 [employer]- All Rights Reserved Chest/Abdomen CTA 03/03/18 08:05 IMPRESSION: The poor filling of the right upper lobe apical segmental pulmonary artery and right basilar segmental pulmonary arteries worrisome for subacute pulmonary emboli. Persistent right lung dense consolidation with small right pleural effusion. Small to moderate left pleural effusion Significant cardiomegaly Chest Ultrasound 03/07/18 00:00 IMPRESSION: Moderate-sized left pleural effusion. Apical Lordotic X-Ray 03/07/18 21:42 IMPRESSION: Moderate layering left pleural effusion. Else, stable. Assessment & Plan - Diagnosis (1) Acute respiratory failure with hypoxia Is this a current diagnosis for this admission?: Yes Plan: Impression and recommendations: This is an extremely fragile 82-year-old patient with severe respiratory compromise, malnutrition; DNR status. I have reviewed the imaging studies. The patient does have a mild pleural effusion on the left, likely sympathetic: Low suspicion for malignancy or infection. Since this is not been tapped, I suggested radiologic guided thoracentesis. I would original another Pleurx catheter on the left side at this time. I have discussed the above with the nursing staff and hospitalist service. Surgery will be available in the future if needed.
[2018-03-08] MEDS: IPRATROPIUM/ALBUTEROL 0.5-2.5 MG/3 ML AMPUL NEB PRN (09:59)
[2018-03-08] MEDS: PREDNISONE 20 MG TABLET PO SCH (10:29)
[2018-03-08] MEDS: METOPROLOL SUCCINATE 50 MG TAB.SR.24H PO SCH ×2 (10:29→21:42)
[2018-03-08] MEDS: GUAIFENESIN 600 MG TABLET.SA PO SCH ×2 (10:29→21:42)
--- NOTE | 2018-03-08 13:58 | PDOC PROGRESS REPORT ---
Subjective Progress Note for:: 03/08/18 Subjective:: The patient is an 82-year-old female with past medical history of atrial fibrillation (chronically anticoagulated on Coumadin) coronary artery disease, [place], remote CABG, CHF, hyperlipidemia, hypertension, COPD, hypothyroidism, arthritis, depression and recent admission to [facility] for acute respiratory failure, new diagnosis of mediastinal mass (initial biopsy benign), and bilateral pleural effusion s/p chest tube who was admitted 03/03/2018 for acute respiratory failure with hypoxia secondary to COPD exacerbation, CHF exacerbation, pulmonary embolism, and pneumonia. The patient was seen on morning rounds with multiple family members present. She was found resting in bed comfortably on 2lpm. She reports she again had a "rough morning" due to increased productive cough on waking; improved following nebulizer treatments. She reports that she continues to feel better. She is optimistic that her breathing will improve following thoracentesis today; but does understand that this may be a temporizing measure with reoccurance of the fluid in the future. Discussed with patient and family the need for continued chronic anticoagulation (tx for PE in presence of chronic Afib) following her procedure today. Dr. Chavira has recommended DOAC; patient's son would like to call her primary care provider to get his recommendations prior to initiating a new medication. She confirms her desire to be discharged to [place] for short term rehab. She has no new questions or concerns today. No concerns per nursing. Reason For Visit: COPD EXACERBATION Physical Exam Vital Signs: Temp Pulse Resp BP Pulse Ox 97.9 F 108 H 18 139/65 H 89 L 03/08/18 06:00 03/08/18 09:59 03/08/18 09:59 03/08/18 06:00 03/08/18 09:59 Intake & Output 03/07/18 03/08/18 03/09/18 06:59 06:59 06:59 Intake Total 1372 550 Output Total 850 1950 Balance 522 -1400 Weight 55.8 kg 55.9 kg General appearance: PRESENT: no acute distress, cooperative - Pleasant, well- developed, other - Cachectic Head exam: PRESENT: atraumatic, normocephalic Eye exam: PRESENT: conjunctiva pink, EOMI, PERRLA. ABSENT: scleral icterus Ear exam: PRESENT: normal external ear exam Mouth exam: PRESENT: moist, tongue midline Teeth exam: PRESENT: edentulous Neck exam: ABSENT: carotid bruit, JVD, lymphadenopathy, thyromegaly Respiratory exam: PRESENT: decreased breath sounds - Absent bilateral lower palmer, prolonged expiratory phas, rhonchi, symmetrical, unlabored, other - Supplemental oxygen by nasal cannula. ABSENT: rales, wheezes Cardiovascular exam: PRESENT: RRR, +S1, +S2. ABSENT: diastolic murmur, rubs, systolic murmur Pulses: PRESENT: normal dorsalis pedis pul Vascular exam: PRESENT: normal capillary refill GI/Abdominal exam: PRESENT: normal bowel sounds, soft. ABSENT: distended, guarding, mass, organolmegaly, rebound, tenderness Rectal exam: PRESENT: deferred Extremities exam: PRESENT: full ROM. ABSENT: calf tenderness, clubbing, pedal edema Neurological exam: PRESENT: alert, awake, oriented to person, oriented to place , oriented to time, oriented to situation, CN II-XII grossly intact, other - Forgetful. ABSENT: motor sensory deficit Psychiatric exam: PRESENT: appropriate affect, normal mood. ABSENT: homicidal ideation, suicidal ideation Skin exam: PRESENT: dry, intact, warm. ABSENT: cyanosis, rash Results Laboratory Results: 03/08/18 04:25 03/08/18 04:25 03/08/18 03/08/18 04:25 04:25 WBC 10.4 RBC 3.44 L Hgb 11.1 L Hct 32.2 L MCV 94 MCH 32.4 MCHC 34.6 RDW 13.8 Plt Count 253 Sodium 134.1 L Potassium 4.3 Chloride 89 L Carbon Dioxide 33 H Anion Gap 12 BUN 32 H Creatinine 0.61 Est GFR ( Amer) > 60 Est GFR (Non-Af Amer) > 60 Glucose 98 Calcium 9.0 03/03/18 12:42 Blood Blood Culture - Final NO GROWTH IN 5 DAYS 03/05/18 04:43 NT-Pro-B Natriuret Pep 7290 H Impressions: Chest X-Ray 03/03/18 06:26 IMPRESSION: Moderate right-sided pleural effusion with right pulmonary airspace opacities copyright 2011 [employer]- All Rights Reserved Chest/Abdomen CTA 03/03/18 08:05 IMPRESSION: The poor filling of the right upper lobe apical segmental pulmonary artery and right basilar segmental pulmonary arteries worrisome for subacute pulmonary emboli. Persistent right lung dense consolidation with small right pleural effusion. Small to moderate left pleural effusion Significant cardiomegaly Chest Ultrasound 03/07/18 00:00 IMPRESSION: Moderate-sized left pleural effusion. Apical Lordotic X-Ray 03/07/18 21:42 IMPRESSION: Moderate layering left pleural effusion. Else, stable. Assessment & Plan - Diagnosis (1) Acute respiratory failure with hypoxia Is this a current diagnosis for this admission?: Yes Plan: Improved; now on 2 L/min (baseline oxygen requirement). The patient was admitted with acute respiratory failure with hypoxia secondary to a COPD exacerbation, CHF exacerbation, pulmonary embolus, pneumonia, and bilateral pleural effusions. Upon presentation she was noted to have PO2 of 77% on supplemental oxygen 2 L/ min associated with tachycardia, orthopnea, and dyspnea at rest. She has been admitted to the medical floor on continuous cardiac telemetry. She is provided supplemental oxygen as needed to maintain oxygen saturations greater than 89%. She is provided as needed nebulizer treatments. She received diuresis with IV Lasix. Empirically treated for healthcare associated pneumonia with IV Rocephin and Levaquin. She is also provided steroids. Pulmonology has been consulted. Specific disease related management as outlined below. Palliative Care and Discharge Planning are consulted. (2) CHF exacerbation Qualifiers: Heart failure type: right-sided Qualified Code(s): I50.813 - Acute on chronic right heart failure Is this a current diagnosis for this admission?: Yes Plan: Echocardiogram reveals LVEF > 60% with normal ventricular diastolic function, evidence of RV pressure/volume overload, moderately dilated right ventricle, moderate to severely dilated right atrium, moderate to severely reduced right ventricular function, severe tricuspid regurgitation, and severe pulmonary hypertension by echocardiogram. ProBNP elevated to 7300 --> 7290 Holding Lasix; weight stable, urinary output good. Continue home dose metoprolol. We will monitor strict I&Os and daily weight. Cardiac diet. Consider cardiology consultation. (3) COPD exacerbation Is this a current diagnosis for this admission?: Yes Plan: Improved; likely at her baseline respiratory function. She is now maintaining oxygen saturations on her home requirement of 2lpm. Supplemental oxygen as needed to maintain oxygen saturations greater than 89%. As needed nebulizer treatments. To continue her home dose and Anoro. Transition to p.o. prednisone today. Mucinex twice daily. Incentive spirometer and flutter valve to bedside. Pulmonology has been consulted appreciate their assistance. (4) HTN (hypertension) Is this a current diagnosis for this admission?: Yes Plan: Normotensive. Continue the patient's home dose metoprolol. Cardiac diet. (5) Hypothyroidism Is this a current diagnosis for this admission?: Yes Plan: We will continue the patient's home dose levothyroxine. (6) Mediastinal lymphadenopathy Is this a current diagnosis for this admission?: Yes Plan: Biopsy done this month at [facility] was reportedly benign per patient's family member. Possibly related to infectious process; treatment for pneumonia as outlined elsewhere. Pulmonology has been consulted. Oncology is consulted; appreciate Dr. Chavira's assistance. Plans to to have patient follow-up after discharge for PET scan. (7) Pleural effusion Is this a current diagnosis for this admission?: Yes Plan: Unclear etiology; likely multifactorial secondary to infection, exacerbation, and possibly lung mass. The patient has a Pleurx drain to Rt chest that was placed during her admission to [facility]. Now draining 20-50 ml every other day; patient's son reports that it initially put out ~1L daily. Will continue to drain every other day; 40 ml drained Thursday. Remaining plan as outlined elsewhere. Pulmonology has been consulted. Surgery was consulted to evaluate for potential benefit of a Lt chest Pleurex drain; instead are recommending thoracentesis. Will try to arrange for that today. (8) Pneumonia Is this a current diagnosis for this admission?: Yes Plan: CT of the chest demonstrated a right lower lobe consolidation. Blood cultures are negative at 5 days. Sputum cultures have not been collected; patient does not have a productive cough. The patient has remained afebrile throughout the admission with downward trend in WBCs despite IV steroids; will discontinue Rocephin today (received 5 days). Continue p.o. Levaquin (on q48 hours schedule); last dose tomorrow. (9) Pulmonary embolism Qualifiers: Chronicity: acute Is this a current diagnosis for this admission?: Yes Plan: The patient is chronically anticoagulated on Coumadin for her atrial fibrillation. This medication was held while inpatient at [facility] for lung biopsies and chest tube placement. Coumadin was resumed on discharge approximately 4 days ago. Coumadin of 2.5 mg held secondary to INR 3.99; has trended down to 1.30 for planned thoracentesis. Discussed with patient and family members recommendations for Xarelto or Eliquis ; requesting to have the opportunity to speak with her primary care provider before making changes. The patient's son states that he will call the PCP and let nursing know today their decision with regard to resumption of Coumadin or transition to DOAC. Supplemental oxygen to maintain oxygen saturations. Pulmonology has been consulted. (10) Atrial fibrillation Qualifiers: Atrial fibrillation type: chronic Qualified Code(s): I48.2 - Chronic atrial fibrillation Is this a current diagnosis for this admission?: Yes Plan: Continue home dose metoprolol. Holding Coumadin secondary to supratherapeutic INR. (11) Supratherapeutic INR Is this a current diagnosis for this admission?: Yes Plan: Continues to increase (3.91-->3.99--> 1.30). Continue to hold Coumadin. Daily PT/INR Consider transition to Xarelto or Eliquis at discharge. (12) Protein-calorie malnutrition Is this a current diagnosis for this admission?: Yes Plan: Registered dietitian's notes are reviewed. Patient is placed on multivitamin with iron supplement. Continue boost twice daily with meals. Encourage p.o. intake. Provided a low-sodium, high-protein, high-calorie diet. - Time Time Spent with patient: 25-34 minutes Medications reviewed and adjusted accordingly: Yes Anticipated discharge: SNF Within: within 24 hours
--- NOTE | 2018-03-08 15:21 | RADIOLOGY REPORT (SQ) ---
EXAM DESCRIPTION: CHEST SINGLE VIEW COMPLETED DATE/TIME: 03/08/2018 3:02 pm REASON FOR STUDY: S/P LEFT THORACENTESIS COMPARISON: CHEST FILMS 03/03/2018, 03/07/2018 EXAM PARAMETERS: NUMBER OF VIEWS: One view. TECHNIQUE: Single frontal radiographic view of the chest acquired. RADIATION DOSE: NA LIMITATIONS: None. FINDINGS: LUNGS AND PLEURA: Chest film immediately post left thoracentesis. No left pneumothorax. No residual left pleural effusion. On the right side, PleurX catheter persists, with persistent fluid/pleural thickening in the right la teral costophrenic sulcus, and dense consolidation in the right upper and lower lobe. MEDIASTINUM AND HILAR STRUCTURES: No masses. Contour normal. HEART AND VASCULAR STRUCTURES: Stable mild cardiomegaly. Old sternotomy post CABG. BONES: No acute findings. HARDWARE: Right PleurX catheter OTHER: No other significant finding. IMPRESSION: Post left thoracentesis. No residual left pleural fluid or left lower lobe airspace dis ease. No left pneumothorax. Stable appearance of the right chest TECHNICAL DOCUMENTATION: JOB ID: [id number] [employer]- All Rights Reserved Reading location - IP/workstation name: [email or web address]
--- NOTE | 2018-03-08 15:24 | RADIOLOGY REPORT (SQ) ---
EXAM DESCRIPTION: U/S THORACENTESIS WITH IMAGING COMPLETED DATE/TIME: 03/08/2018 3:15 pm REASON FOR STUDY: Left pleural effusion COMPARISON: None. LIMITATIONS: None. PROCEDURE: Procedure, risks, benefit, and alternative explained to patient who then gave written con sent. The posterior left chest wall was marked using ultrasound guidance. A time-out was called for correct marking verification. Chest prepped and draped using sterile technique. Local anesthesia ac hieved using 6 mL of ml of 1% lidocaine injection. A 6fr Safe-T- Centesis set was introduced into th e left pleural space. Fluid was aspirated. The catheter was removed and the entry site was covered with sterile bandage. No immediate complications noted. Fluid specimen was sent for testing. Images acquired during the procedure were stored on PACS. FINDINGS: ENTRY SITE: Posterior left chest FLUID VOLUME: 850 mL of clear yellow fluid FLUID ANALYSIS: Yes, sent for testing OTHER: No left-sided pneumothorax on the immediate post procedure chest radiograph IMPRESSION: SUCCESSFUL LEFT THORACENTESIS USING ULTRASOUND GUIDANCE. COMMENT: Patient medication list reviewed: Yes- Quality ID# [id number]:Eligible professional attests to doc umenting in the medical record they obtained, updated, or reviewed the patient's current medications. TECHNICAL DOCUMENTATION: JOB ID: [id number] [employer]- All Rights Reserved Reading location - IP/workstation name: [email or web address]
[2018-03-08 15:31] LABS: FLUID SOURCE LUNG; FLUID TYPE PLEURAL
[2018-03-08 15:32] LABS: FLUID APPEARANCE CLEAR; FLUID COLOR YELLOW; FLUID VISCOSITY LIQUID
[2018-03-08] MEDS ORDERED: ACETAMINOPHEN 325 MG TABLET PO PRN (15:51)
--- NOTE | 2018-03-08 17:12 | RADIOLOGY REPORT (SQ) ---
EXAM DESCRIPTION: CHEST SINGLE VIEW COMPLETED DATE/TIME: 03/08/2018 5:00 pm REASON FOR STUDY: 2 HOURS S/P LEFT THORACENTESIS COMPARISON: Chest radiographs dated 03/03/2018, 03/07/2018, and 03/08/2018 EXAM PARAMETERS: NUMBER OF VIEWS: 2 images. TECHNIQUE: 2 portable frontal radiographs of the chest were acquired. RADIATION DOSE: NA LIMITATIONS: None. FINDINGS: LUNGS AND PLEURA: Short interval stability of the pulmonary exam demonstrating resolution of the left pleural effusion with persistent right upper and lower lobe consolidation and moderate pl eural effusion. MEDIASTINUM AND HILAR STRUCTURES: No masses. Contour normal. HEART AND VASCULAR STRUCTURES: Stable. BONES: No acute findings. HARDWARE: Right lung base pleural drain, stable. OTHER: No other significant finding. IMPRESSION: 1. Stable pulmonary exam demonstrating persistent right upper and lower lobe consolidat ion with right-sided pleural effusion. No re- accumulation of left sided extrapleural fluid. No pne umothorax. 2. Stable right hemithorax pleural drain. TECHNICAL DOCUMENTATION: JOB ID: [id number] [employer]- All Rights Reserved Reading location - IP/workstation name: [email or web address]
[2018-03-08] MEDS: RIVAROXABAN 15 MG TABLET PO SCH (19:00)
[2018-03-08 19:30] LABS: APPEARANCE,URINE CLOUDY; BILIRUBIN,URINE NEGATIVE (NEGATIVE); COLOR,URINE YELLOW; GLUCOSE, URINE NEGATIVE (NEGATIVE); KETONES,URINE NEGATIVE (NEGATIVE); LEUKOCYTE ESTERASE,URINE NEGATIVE (NEGATIVE); NITRITE,URINE NEGATIVE (NEGATIVE); PROTEIN,URINE NEGATIVE (NEGATIVE); URINE SPECIFIC GRAVITY 1.023; UROBILINOGEN,URINE NEGATIVE mg/dL (<2.0)
[2018-03-09] MEDS: IPRATROPIUM/ALBUTEROL 0.5-2.5 MG/3 ML AMPUL NEB PRN ×4 (01:48→23:58)
[2018-03-09] MEDS: LEVOTHYROXINE SODIUM 0.025 MG TABLET PO SCH (05:33)
[2018-03-09 06:55] LABS: HEMATOCRIT 35.2 % (36.0-47.0); HEMOGLOBIN 11.8 g/dL (12.0-15.5); MEAN CORPUSCULAR HEMOGLOBIN 32.1 pg (27.0-33.4); MEAN CORPUSCULAR HGB CONC 33.7 g/dL (32.0-36.0); MEAN CORPUSCULAR VOLUME 95 fl (80-97); PLATELET COUNT 246 10^3/uL (150-450); RED BLOOD COUNT 3.69 10^6/uL (3.72-5.28); RED CELL DISTRIBUTION WIDTH 13.8 % (11.5-14.0); WHITE BLOOD COUNT 11.3 10^3/uL (4.0-10.5)
[2018-03-09 07:01] LABS: INTERNATIONAL RATION (INR) 2.04
[2018-03-09 07:16] LABS: ANION GAP 11 (5-19); BLOOD UREA NITROGEN 32 mg/dL (7-20); CALCIUM 9.2 mg/dL (8.4-10.2); CARBON DIOXIDE 35 mmol/L (22-30); CHLORIDE 88 mmol/L (98-107); GLUCOSE 74 mg/dL (75-110); POTASSIUM 4.1 mmol/L (3.6-5.0); SODIUM 133.9 mmol/L (137-145)
--- NOTE | 2018-03-09 08:34 | PDOC PROGRESS REPORT ---
Subjective Progress Note for:: 03/09/18 Subjective:: No acute events overnight, feels better this am, received full records from [facility], pt did have cytology done on both R pleural effusion and EBUS w/ multiple mediastinal LN bx done, all negative for malignancy Reason For Visit: COPD EXACERBATION Physical Exam Vital Signs: Temp Pulse Resp BP Pulse Ox 98.5 F 82 20 136/64 H 96 03/09/18 00:25 03/09/18 01:50 03/09/18 01:50 03/09/18 00:25 03/09/18 01:50 Intake & Output 03/08/18 03/09/18 03/10/18 06:59 06:59 06:59 Intake Total 550 550 Output Total 1950 400 Balance -1400 150 Weight 55.9 kg 56.2 kg General appearance: PRESENT: no acute distress, well-developed, well-nourished Head exam: PRESENT: atraumatic, normocephalic Eye exam: PRESENT: conjunctiva pink, EOMI, PERRLA. ABSENT: scleral icterus Ear exam: PRESENT: normal external ear exam Mouth exam: PRESENT: moist, tongue midline Neck exam: ABSENT: carotid bruit, JVD, lymphadenopathy, thyromegaly Respiratory exam: PRESENT: clear to auscultation jesus. ABSENT: rales, rhonchi, wheezes Cardiovascular exam: PRESENT: RRR. ABSENT: diastolic murmur, rubs, systolic murmur Pulses: PRESENT: normal dorsalis pedis pul Vascular exam: PRESENT: normal capillary refill GI/Abdominal exam: PRESENT: normal bowel sounds, soft. ABSENT: distended, guarding, mass, organolmegaly, rebound, tenderness Rectal exam: PRESENT: deferred Extremities exam: PRESENT: full ROM. ABSENT: calf tenderness, clubbing, pedal edema Neurological exam: PRESENT: alert, awake, oriented to person, oriented to place , oriented to time, oriented to situation, CN II-XII grossly intact. ABSENT: motor sensory deficit Psychiatric exam: PRESENT: appropriate affect, normal mood. ABSENT: homicidal ideation, suicidal ideation Skin exam: PRESENT: dry, intact, warm. ABSENT: cyanosis, rash Results Laboratory Results: 03/09/18 05:54 03/09/18 05:54 03/08/18 03/08/18 03/09/18 14:45 17:15 05:54 WBC 11.3 H RBC 3.69 L Hgb 11.8 L Hct 35.2 L MCV 95 MCH 32.1 MCHC 33.7 RDW 13.8 Plt Count 246 Sodium Potassium Chloride Carbon Dioxide Anion Gap BUN Creatinine Est GFR ( Amer) Est GFR (Non-Af Amer) Glucose Calcium Urine Color YELLOW Urine Appearance CLOUDY Urine pH 5.0 Ur Specific [place] 1.023 Urine Protein NEGATIVE Urine Glucose (UA) NEGATIVE Urine Ketones NEGATIVE Urine Blood NEGATIVE Urine Nitrite NEGATIVE Ur Leukocyte Esterase NEGATIVE Urine WBC (Auto) 47 Urine RBC (Auto) 53 Fluid Type PLEURAL Fluid Source LUNG Fluid Color YELLOW Fluid Appearance CLEAR Fluid Viscosity LIQUID Fluid WBC 1075 Fluid RBC 800 03/09/18 05:54 WBC RBC Hgb Hct MCV MCH MCHC RDW Plt Count Sodium 133.9 L Potassium 4.1 Chloride 88 L Carbon Dioxide 35 H Anion Gap 11 BUN 32 H Creatinine 0.60 Est GFR ( Amer) > 60 Est GFR (Non-Af Amer) > 60 Glucose 74 L Calcium 9.2 Urine Color Urine Appearance Urine pH Ur Specific [place] Urine Protein Urine Glucose (UA) Urine Ketones Urine Blood Urine Nitrite Ur Leukocyte Esterase Urine WBC (Auto) Urine RBC (Auto) Fluid Type Fluid Source Fluid Color Fluid Appearance Fluid Viscosity Fluid WBC Fluid RBC 03/03/18 12:42 Blood Blood Culture - Final NO GROWTH IN 5 DAYS 03/05/18 04:43 NT-Pro-B Natriuret Pep 7290 H Impressions: Chest/Abdomen CTA 03/03/18 08:05 IMPRESSION: The poor filling of the right upper lobe apical segmental pulmonary artery and right basilar segmental pulmonary arteries worrisome for subacute pulmonary emboli. Persistent right lung dense consolidation with small right pleural effusion. Small to moderate left pleural effusion Significant cardiomegaly Chest Ultrasound 03/07/18 00:00 IMPRESSION: Moderate-sized left pleural effusion. Apical Lordotic X-Ray 03/07/18 21:42 IMPRESSION: Moderate layering left pleural effusion. Else, stable. Chest X-Ray 03/08/18 00:00 IMPRESSION: 1. Stable pulmonary exam demonstrating persistent right upper and lower lobe consolidation with right-sided pleural effusion. No re- accumulation of left sided extrapleural fluid. No pneumothorax. 2. Stable right hemithorax pleural drain. Thoracentesis Ultrasound 03/08/18 09:45 IMPRESSION: SUCCESSFUL LEFT THORACENTESIS USING ULTRASOUND GUIDANCE. Assessment & Plan - Diagnosis (1) Lung mass Is this a current diagnosis for this admission?: Yes Plan: Would recommend PET/CT as outpt, L pleural effusion analysis pending, I added cytology today (2) Pulmonary embolism Qualifiers: Chronicity: acute Is this a current diagnosis for this admission?: Yes Plan: Agree w/ xarelto start. Con't. (3) Oral candidiasis Is this a current diagnosis for this admission?: Yes Plan: Start Diflucan today x 7 days, d/c'd levaquin b/c of interaction w/ diflucan/ levaquin, pt had full rx for CAP - Time Time Spent with patient: 35 or more minutes - Inpatient Certification Based on my medical assessment, after consideration of the patient's comorbidities, presenting symptoms, or acuity I expect that the services needed warrant INPATIENT care.: Yes I certify that my determination is in accordance with my understanding of Medicare's requirements for reasonable and necessary INPATIENT services [42 CFR 412.3e].: Yes
[2018-03-09] MEDS ORDERED: CALCIUM CARBONATE PO SCH (10:00)
[2018-03-09] MEDS ORDERED: [UNRECOGNIZED DRUG - OTHER] PO SCH (10:00)
[2018-03-09] MEDS ORDERED: VITAMIN D3 PO SCH (10:00)
[2018-03-09] MEDS: RIVAROXABAN 15 MG TABLET PO SCH ×2 (10:37→17:28)
[2018-03-09] MEDS: CALCIUM CARBONATE 250 MG/VITAMIN D3 125 UNIT TABLET PO SCH (10:37)
[2018-03-09] MEDS: MULTIVITAMINS W-IRON TABLET, CHEWABLE PO SCH (10:37)
[2018-03-09] MEDS: PREDNISONE 20 MG TABLET PO SCH (10:37)
[2018-03-09] MEDS: FLUCONAZOLE 100 MG TABLET PO SCH (10:37)
[2018-03-09] MEDS: METOPROLOL SUCCINATE 50 MG TAB.SR.24H PO SCH ×2 (10:37→22:01)
[2018-03-09] MEDS: GUAIFENESIN 600 MG TABLET.SA PO SCH ×2 (10:37→22:01)
--- NOTE | 2018-03-09 18:20 | PDOC PROGRESS REPORT ---
Subjective Progress Note for:: 03/09/18 Subjective:: The patient is an 82-year-old female with past medical history of atrial fibrillation (chronically anticoagulated on Coumadin) coronary artery disease, VT, remote CABG, CHF, hyperlipidemia, hypertension, COPD, hypothyroidism, arthritis, depression and recent admission to [facility] for acute respiratory failure, new diagnosis of mediastinal mass (initial biopsy benign), and bilateral pleural effusion s/p chest tube who was admitted 03/03/2018 for acute respiratory failure with hypoxia secondary to COPD exacerbation, CHF exacerbation, pulmonary embolism, and pneumonia. The patient was seen on morning rounds with [id number] present. She was found resting in bed comfortably on 2lpm. She reports that she is feeling much better today. She states that she is able to take a deep breath now and is surprised by the difference in breathing effort following her thoracentesis yesterday; removed and and 50 mL from the left. She denies fever, chills, chest pain, palpitations, dyspnea while at rest, orthopnea, abdominal pain, nausea vomiting or diarrhea. She does endorse a slight, nonproductive, cough and mild shortness of breath with activity. She has no questions or concerns at this time; looking forward to being discharged to SNF for short-term rehab. No concerns per nursing. Reason For Visit: COPD EXACERBATION Physical Exam Vital Signs: Temp Pulse Resp BP Pulse Ox 97.8 F 110 H 24 H 139/64 H 96 03/09/18 15:53 03/09/18 15:53 03/09/18 15:53 03/09/18 15:53 03/09/18 15:53 Intake & Output 03/08/18 03/09/18 03/10/18 06:59 06:59 06:59 Intake Total 550 550 Output Total 1950 400 Balance -1400 150 Weight 55.9 kg 56.2 kg General appearance: PRESENT: no acute distress, cooperative - Pleasant, well- developed, other - Cachectic Head exam: PRESENT: atraumatic, normocephalic Eye exam: PRESENT: conjunctiva pink, EOMI, PERRLA. ABSENT: scleral icterus Ear exam: PRESENT: normal external ear exam Mouth exam: PRESENT: moist, tongue midline Teeth exam: PRESENT: edentulous Neck exam: ABSENT: carotid bruit, JVD, lymphadenopathy, thyromegaly Respiratory exam: PRESENT: decreased breath sounds - Bibasilar, rhonchi - RLL, symmetrical, unlabored, other - Nasal cannula. ABSENT: rales, wheezes Cardiovascular exam: PRESENT: RRR, +S1, +S2. ABSENT: diastolic murmur, rubs, systolic murmur Pulses: PRESENT: normal dorsalis pedis pul Vascular exam: PRESENT: normal capillary refill GI/Abdominal exam: PRESENT: normal bowel sounds, soft. ABSENT: distended, guarding, mass, organolmegaly, rebound, tenderness Rectal exam: PRESENT: deferred Extremities exam: PRESENT: full ROM. ABSENT: calf tenderness, clubbing, pedal edema Neurological exam: PRESENT: alert, awake, oriented to person, oriented to place , oriented to time, oriented to situation, CN II-XII grossly intact, other - Forgetful. ABSENT: motor sensory deficit Psychiatric exam: PRESENT: appropriate affect, normal mood. ABSENT: homicidal ideation, suicidal ideation Skin exam: PRESENT: dry, intact, warm. ABSENT: cyanosis, rash Results Laboratory Results: 03/09/18 05:54 03/09/18 05:54 03/08/18 03/09/18 03/09/18 17:15 05:54 05:54 WBC 11.3 H RBC 3.69 L Hgb 11.8 L Hct 35.2 L MCV 95 MCH 32.1 MCHC 33.7 RDW 13.8 Plt Count 246 Sodium 133.9 L Potassium 4.1 Chloride 88 L Carbon Dioxide 35 H Anion Gap 11 BUN 32 H Creatinine 0.60 Est GFR ( Amer) > 60 Est GFR (Non-Af Amer) > 60 Glucose 74 L Calcium 9.2 Urine Color YELLOW Urine Appearance CLOUDY Urine pH 5.0 Ur Specific [place] 1.023 Urine Protein NEGATIVE Urine Glucose (UA) NEGATIVE Urine Ketones NEGATIVE Urine Blood NEGATIVE Urine Nitrite NEGATIVE Ur Leukocyte Esterase NEGATIVE Urine WBC (Auto) 47 Urine RBC (Auto) 53 03/05/18 04:43 NT-Pro-B Natriuret Pep 7290 H Impressions: Chest/Abdomen CTA 03/03/18 08:05 IMPRESSION: The poor filling of the right upper lobe apical segmental pulmonary artery and right basilar segmental pulmonary arteries worrisome for subacute pulmonary emboli. Persistent right lung dense consolidation with small right pleural effusion. Small to moderate left pleural effusion Significant cardiomegaly Chest Ultrasound 03/07/18 00:00 IMPRESSION: Moderate-sized left pleural effusion. Apical Lordotic X-Ray 03/07/18 21:42 IMPRESSION: Moderate layering left pleural effusion. Else, stable. Chest X-Ray 03/08/18 00:00 IMPRESSION: 1. Stable pulmonary exam demonstrating persistent right upper and lower lobe consolidation with right-sided pleural effusion. No re- accumulation of left sided extrapleural fluid. No pneumothorax. 2. Stable right hemithorax pleural drain. Thoracentesis Ultrasound 03/08/18 09:45 IMPRESSION: SUCCESSFUL LEFT THORACENTESIS USING ULTRASOUND GUIDANCE. Assessment & Plan - Diagnosis (1) Acute respiratory failure with hypoxia Is this a current diagnosis for this admission?: Yes Plan: Acute phase resolved; now on 2 L/min (baseline oxygen requirement). The patient was admitted with acute respiratory failure with hypoxia secondary to a COPD exacerbation, CHF exacerbation, pulmonary embolus, pneumonia, and bilateral pleural effusions. Upon presentation she was noted to have PO2 of 77% on supplemental oxygen 2 L/ min associated with tachycardia, orthopnea, and dyspnea at rest. She has been admitted to the medical floor on continuous cardiac telemetry. She is provided supplemental oxygen as needed to maintain oxygen saturations greater than 89%. She is provided as needed nebulizer treatments. She received diuresis with IV Lasix. Empirically treated for healthcare associated pneumonia with IV Rocephin and Levaquin. She is also provided steroids. Pulmonology has been consulted. Specific disease related management as outlined below. Palliative Care and Discharge Planning are consulted. (2) CHF exacerbation Qualifiers: Heart failure type: right-sided Qualified Code(s): I50.813 - Acute on chronic right heart failure Is this a current diagnosis for this admission?: Yes Plan: Exacerbation has resolved; now stable. Echocardiogram reveals LVEF > 60% with normal ventricular diastolic function, evidence of RV pressure/volume overload, moderately dilated right ventricle, moderate to severely dilated right atrium, moderate to severely reduced right ventricular function, severe tricuspid regurgitation, and severe pulmonary hypertension by echocardiogram. ProBNP elevated to 7300 --> 7290 Continue home dose metoprolol. We will monitor strict I&Os and daily weight. Cardiac diet. (3) COPD exacerbation Is this a current diagnosis for this admission?: Yes Plan: Improved; likely at her baseline respiratory function. She is now maintaining oxygen saturations on her home requirement of 2lpm. Supplemental oxygen as needed to maintain oxygen saturations greater than 89%. As needed nebulizer treatments. To continue her home dose and Anoro. Begin prednisone taper. Mucinex twice daily. Incentive spirometer and flutter valve to bedside. Pulmonology has been consulted appreciate their assistance. (4) HTN (hypertension) Is this a current diagnosis for this admission?: Yes Plan: Normotensive. Continue the patient's home dose metoprolol. Cardiac diet. (5) Hypothyroidism Is this a current diagnosis for this admission?: Yes Plan: We will continue the patient's home dose levothyroxine. (6) Mediastinal lymphadenopathy Is this a current diagnosis for this admission?: Yes Plan: Biopsy done this month at [facility]; Dr. Chavira received pathology reports , all negative for malignancy. Likely inflammatory reaction. Pulmonology has been consulted. Oncology is consulted; appreciate Dr. Chavira's assistance. Plans to to have patient follow-up after discharge for PET scan. (7) Pleural effusion Is this a current diagnosis for this admission?: Yes Plan: Unclear etiology; likely multifactorial secondary to infection, exacerbation, and possibly lung mass. The patient has a Pleurx drain to Rt chest that was placed during her admission to [facility]. Now draining 20-50 ml every other day; patient's son reports that it initially put out ~1L daily. Now s/p thoracentesis on the left (03/08/2018); removed 850 mL's. Pleural fluid gram stain and culture has no growth in 1 day. AFB pending. Cytology pending. Will continue to drain every third day; due again tomorrow prior to discharge. Remaining plan as outlined elsewhere. Pulmonology has been consulted. (8) Pneumonia Is this a current diagnosis for this admission?: Yes Plan: Resolved; completed full course of Rocephin and Levaquin. CT of the chest demonstrated a right lower lobe consolidation. Blood cultures are negative at 5 days. Sputum cultures have not been collected; patient does not have a productive cough. (9) Pulmonary embolism Qualifiers: Chronicity: acute Is this a current diagnosis for this admission?: Yes Plan: The patient was previously on Coumadin for her atrial fibrillation. This medication was held while inpatient at [facility] for lung biopsies and chest tube placement. Supplemental oxygen to maintain oxygen saturations. Pulmonology has been consulted. Have started Xarelto 15 mg BID x21 days, then 20 mg daily. (10) Atrial fibrillation Qualifiers: Atrial fibrillation type: chronic Qualified Code(s): I48.2 - Chronic atrial fibrillation Is this a current diagnosis for this admission?: Yes Plan: Continue home dose metoprolol. Have started Xarelto. (11) Supratherapeutic INR Is this a current diagnosis for this admission?: Yes Plan: Resolved; Coumadin held. Now on Xarelto. (12) Protein-calorie malnutrition Is this a current diagnosis for this admission?: Yes Plan: Registered dietitian's notes are reviewed. Patient is placed on multivitamin with iron supplement. Continue boost twice daily with meals. Encourage p.o. intake. Provided a low-sodium, high-protein, high-calorie diet. - Time Time Spent with patient: 15-24 minutes Medications reviewed and adjusted accordingly: Yes Anticipated discharge: SNF [facility]: when bed available
[2018-03-10] MEDS: LEVOTHYROXINE SODIUM 0.025 MG TABLET PO SCH (05:20)
[2018-03-10] MEDS: IPRATROPIUM/ALBUTEROL 0.5-2.5 MG/3 ML AMPUL NEB PRN ×2 (05:38→11:43)
[2018-03-10 05:56] LABS: HEMATOCRIT 33.2 % (36.0-47.0); HEMOGLOBIN 11.3 g/dL (12.0-15.5); MEAN CORPUSCULAR HEMOGLOBIN 32.3 pg (27.0-33.4); MEAN CORPUSCULAR HGB CONC 34.2 g/dL (32.0-36.0); MEAN CORPUSCULAR VOLUME 95 fl (80-97); PLATELET COUNT 199 10^3/uL (150-450); RED BLOOD COUNT 3.51 10^6/uL (3.72-5.28); RED CELL DISTRIBUTION WIDTH 13.9 % (11.5-14.0); WHITE BLOOD COUNT 11.2 10^3/uL (4.0-10.5)
[2018-03-10 06:00] LABS: INTERNATIONAL RATION (INR) 2.26; PROTHROMBIN TIME 26.1 SEC (11.4-15.4)
[2018-03-10 06:16] LABS: ANION GAP 8 (5-19); BLOOD UREA NITROGEN 28 mg/dL (7-20); CARBON DIOXIDE 36 mmol/L (22-30); CHLORIDE 90 mmol/L (98-107); GLUCOSE 110 mg/dL (75-110); POTASSIUM 4.7 mmol/L (3.6-5.0); SODIUM 134.2 mmol/L (137-145)
[2018-03-10] MEDS: MULTIVITAMINS W-IRON TABLET, CHEWABLE PO SCH (09:07)
[2018-03-10] MEDS: RIVAROXABAN 15 MG TABLET PO SCH ×2 (09:07→16:39)
[2018-03-10] MEDS: CALCIUM CARBONATE 250 MG/VITAMIN D3 125 UNIT TABLET PO SCH (09:07)
[2018-03-10] MEDS: FLUCONAZOLE 100 MG TABLET PO SCH (09:07)
[2018-03-10] MEDS: GUAIFENESIN 600 MG TABLET.SA PO SCH (09:07)
[2018-03-10] MEDS: METOPROLOL SUCCINATE 50 MG TAB.SR.24H PO SCH (09:08)
[2018-03-10] MEDS ORDERED: PREDNISONE 20 MG TABLET PO SCH (10:00)
--- NOTE | 2018-03-10 11:27 | TRANSFER SUMMARY E ---
Transfer Summary NAME: PARISH NOVAK : 1935 AGE: 82Y ADMITTED: 03/03/2018 TRANSFERRED: 03/10/2018 CODE STATUS: DO NOT RESUSCITATE/DO NOT INTUBATE. PRIMARY CARE PROVIDER: Beau Davis M.D. CONSULTING HOME HEALTH CARE PHYSICIAN AND ONCOLOGIST: Jose Chavira M.D. CONSULTING SURGEON: Heladio Motta M.D. DISCHARGE DIAGNOSES INCLUDE: 1. COPD exacerbation. 2. Acute on chronic hypoxemic respiratory failure. 3. Acute on chronic right-sided heart failure. 4. Hypertension. 5. Hypothyroidism. 6. Mediastinal lymphadenopathy which appears reactive. 7. Pleural effusion. 8. Community-acquired pneumonia, most likely Pneumococcal. 9. Pulmonary embolism. 10. Chronic atrial fibrillation. 11. Chronic anticoagulation with Xarelto. 12. Protein calorie malnourishment with BMI of 20. DISCHARGE MEDICATIONS INCLUDE: 1. Xarelto 15 mg p.o. b.i.d. x21 days, then transition to chronic dosing. 2. Prednisone 60 mg taper. 3. DuoNeb 1 neb every 4 hours p.r.n. 4. Mucinex 60 mg p.o. every 12 hours, 10 tablets, 0 refills. 5. Tylenol 650 mg p.o. every 4 hours p.r.n., 30 tablets, 0 refills. 6. BREO 2 puffs inhalation daily. 7. Zocor 20 mg p.o. at hour of sleep. 8. Multivitamin 1 tablet p.o. daily. 9. Toprol XL 50 mg p.o. b.i.d. 10. Synthroid 25 mcg p.o. every morning. 11. Calcium plus vitamin D 600 mg/500 International units 1 capsule p.o. daily. 12. O2 at 4 L via nasal cannula. 13. Plurex drained every third day. DIET: Heart Healthy as tolerated. ACTIVITY: Per rehab standards. Encourage incentive spirometry. CONDITION: Fair. DIAGNOSTICS: Lab values are as follows. Hematology obtained on 03/10/2018: WBC 12.1, hemoglobin 11.3, hematocrit 36.2, platelet count 199,000. Coagulation obtained on 03/10/2018: PT is 26.1, INR is 2.26. Chemistry obtained on 03/10/2018: Sodium is 134, potassium 4.7, chloride is 90, carbon dioxide 36, BUN 28, creatinine 0.57, glucose 110, calcium is 9.0, lactic acid is 3.2, magnesium 1.8, total bilirubin 0.6, AST 26, ALT 23, alk phos 88, LDH is 247. CK is less than 20. Troponin is less than 0.012. BNP is 7290. Total protein is 6.1, albumin 3.1. Urinalysis obtained on 03/08/2018: Color yellow, appearance cloudy, pH 5.0, specific gravity 1.023, protein negative, glucose negative, ketones negative, occult blood negative, nitrite negative, bilirubin negative, urobilinogen negative, leukocyte esterase is negative. Serologies: AFB obtained on 03/08/2018 is negative. Microbiology: Blood culture obtained on 03/03/2018 reveals no growth. Urine culture obtained on 03/03/2018 reveals no growth. Thoracic fluid obtained on 03/08/2018 reveals no growth. Chest x-ray obtained on 03/03/2018 reveals moderate right-sided pleural effusion with right pulmonary airspace opacity. CTA of the chest and abdomen obtained on 03/03/2018 reveals poor filling of the right upper lobe apical segmental pulmonary artery and right basilar segmental pulmonary artery worrisome for a pulmonary embolism persistent. Right lung dense consolidation with small right pleural effusion, small to moderate left pleural effusion with significant cardiomegaly, multiple areas of hilar mediastinal lymphadenopathy. Apical lordotic x-ray obtained on 03/07/2018 reveals a moderate layering left pleural effusion. Thoracentesis ultrasound obtained on 03/08/2018 reveals a successful left thoracentesis using ultrasound guidance with 850 mL of clear yellow fluid being drained. Chest x-ray obtained on 03/08/2018 reveals stable pulmonary examination. Cytology of pleural fluid was not suggestive of malignancy. VITAL SIGNS: Temperature is 97.7, pulse 106, respirations 18, blood pressure 139/55, oxygen saturation is 95% on 4 L nasal cannula. HISTORY OF PRESENT ILLNESS: The patient is an 82-year-old female with a past medical history of COPD and tobacco dependency. The patient presented to the emergency department with a chief complaint of dyspnea. The patient and the family said that the patient awakened the morning of presentation with shortness of breath and rattling in her chest as well as wheezing and coughing up yellow sputum. The patient had actually been seen by a thoracic surgeon in [place] and did have a PleurX catheter placed that had a minimal amount of drainage coming out. The patient had had the chest tube placed 2 weeks prior. The patient denied any fevers or chills. No sweating. The patient denied any headache or dizzy spells. The patient does give a 6-month history of 30 pounds of weight loss. Denied any urinary problems. No constipation or diarrhea. The patient is chronically on O2 at 2 L. Despite being on the oxygen as well as nebulizer treatments, the patient's symptoms continued to progress and the patient was brought to the emergency department for further evaluation. The patient was found to have a mediastinal mass with chronic pleural effusions and was status post biopsy as per the family that was found to be nonmalignant. The patient was to go have a mediastinoscopy for lymph nodes, but because of the patient's chronic condition it had not been done yet. The patient has been followed by Dr. Garrett, the thoracic surgeon in [place]. The patient had recently been admitted to [facility] in [place] and was discharged after 3 days. Given all these findings the patient was referred to the hospitalist for admission and management. HOSPITAL COURSE: The patient had been admitted to [facility]. The patient initially was found to have a PO2 of 77 and required supplemental O2 during her stay. Her oxygen demand became ever progressive. The patient actually required nebulizers as well as diuresis with IV Lasix. The patient was treated for pneumonia which included a 7-day course of Rocephin and Levaquin. The patient also required steroids as well. The patient was seen and evaluated by Palliative Care as well as Discharge Planning. The patient was seen by Oncology which reviewed biopsy findings of the patient's mediastinal lymphadenopathy which revealed to be negative workup, but she does need to follow up with Dr. Chavira on an outpatient basis for PET scan. The patient's pleural effusion has remained unclear etiology. The patient was felt to have possible secondary infection and was given the above antibiotic coverage. The patient has a PleurX drain to the right chest that was placed during her previous admission at [facility]. At this point it has drained about 50 mL every other day whereas initially it was putting out 1 L a day. The patient is status post thoracentesis on the left side which drained 850 mL. The Gram stain has revealed no growth and cytology was not suggestive of malignancy. This does need to continue to be drained every third day. The patient was noted to have a subtherapeutic INR upon presentation. The patient was actually transitioned over to Xarelto. Initially she will be on 15 mg b.i.d. x21 days and then will be transitioned over to 20 mg daily. This can also be followed by Dr. Chavira upon discharge. The patient has elected to proceed with rehab. DISCHARGE PLANNING: The patient is to follow up with Dr. Chavira within 2 to 4 weeks for hospital followup. The patient will need a followup of her Xarelto as well as outpatient PET scan. Time spent on this discharge, including review of records, is 35 minutes. DICTATING PHYSICIAN: BEAU ROSS NP [id number] PHY#: [id number] ID: [id number] JOB#: [id number] ACCT: [id number] cc:BEAU ROSS NP > MTDD
[2018-03-10 16:29] VITALS: BP 135/72
[2018-03-11 07:36] LABS: TOTAL PROTEIN BODY FLUID 1.7 g/dL (.)
--- NOTE | 2018-03-12 13:09 | PDOC CONSULTATION ---
Consultation Consult Date: 03/05/18 Attending physician:: LEONOR GAO Consult reason:: Dyspnea recurrent pleural effusions History of Present Illness Admission Date/PCP: 03/03/18 10:11 LARRY GREEN MD History of Present Illness: PAR[place] NOVAK is a 82 year old female, for dyspnea she has had recurrent pleural effusions and his Pleurx catheter on the right at this time she presented she also had a CTA that showed she had a pulmonary emboli also has a lot of mediastinal adenopathy really had some sort of bronchoscopy in the past but the results are unknown to [id number] history admits to exposure to passive smoke as a child or as an adult as as well as an adult she denies any chronic illnesses as a child pets and no recent travel. Chronic atrial fibrillation is anticoagulated currently with an elevated INR. Past Medical History Cardiac Medical History: Reports: Atrial Fibrillation, Coronary Artery Disease, Myocardial Infarction, Hyperlipidema, Hypertension Denies: Congestive Heart Failure, Peripheral Vascular Disease, Pulmonary Embolism, Heart Murmur Pulmonary Medical History: Reports: Pneumonia - A BABY Denies: Asthma, Bronchitis, Respiratory Failure, Sleep Apnea, Tuberculosis Comment Only: Chronic Obstructive Pulmonary Disease (COPD) - denies Endocrine Medical History: Reports: Hypothyroidism - NEW DX, meds x 1 week only Denies: Hyperthyroidism Renal/ Medical History: Denies: End Stage Renal Disease Malignancy Medical History: Reports: Other - Mediastinal mass. Denies: Lung Cancer GI Medical History: Denies: Crohn's Disease, Hiatal Hernia Comment Only: Gastroesophageal Reflux Disease - denies Musculoskeltal Medical History: Reports: Arthritis Denies: Fibromyalgia Psychiatric Medical History: Hematology: Comment Only: Anemia - denies Past Surgical History Past Surgical History: Reports: Cardiac Catheterization - STENT, Coronary Artery Bypass Graft - 4 vessel CABG 2004, Orthopedic Surgery - RIGHT TKR Denies: Amputation, Appendectomy, Section, Cholecystectomy, Colostomy, Gastric Bypass Surgery, Herniorrhaphy, Hysterectomy, Mastectomy, Tonsillectomy, Tubal Ligation Social History Information Source: [facility] Records Smoking Status: Former Smoker Number of Years Smokin Last Time Smoked: 03/30/2007 Passive smoke exposure as: Both Hx Recreational Drug Use: No Drugs: None Hx Prescription Drug Abuse: No Do you have pets?: No Have you had any respiratory illnesses as a child?: No Have you been exposed to any sick contacts recently?: No Have you had any recent respiratory illnesses?: Yes Have you travelled outside of [place] in the past 12 months?: No - Advance Directive Resuscitation Status: Do Not Resuscitate Family History Family History: CAD Parental Family History Reviewed: Yes Children Family History Reviewed: Yes Sibling(s) Family History Reviewed.: Yes Medication/Allergy Home Medications: Calcium Carbonate/Vitamin D3 [Calcium 600-Vit D3 500 Softgel] 1 cap PO DAILY 08/14 Levothyroxine Sodium [Synthroid 0.025 mg Tablet] 25 mcg PO Q6AM 03/03/18 Metoprolol Succinate [Toprol Xl 50 mg Tab.sr] 50 mg PO BID 03/03/18 Multivitamin [Multiple Vitamins] 1 each PO DAILY 03/03/18 Simvastatin [Zocor 20 mg Tablet] 20 mg PO QHS 03/03/18 Umeclidinium Brm/Vilanterol Tr [Anoro Ellipta 62.5-25 Mcg INH] 2 puff IH DAILY 03/03/18 Acetaminophen [Tylenol 325 mg Tablet] 650 mg PO Q4HP PRN #30 tablet 03/10/18 Guaifenesin [Mucinex Sr 600 mg Tablet.sa] 600 mg PO Q12 #10 tablet.sa 03/10/18 Ipratropium/Albuterol Sulfate [Duoneb 3 ml Ampul] 3 ml NEB RTQ4HP PRN #30 vial.neb 03/10/18 Prednisone [Deltasone 10 mg Tablet] 10 mg PO ASDIR PRN #21 tablet 03/10/18 Rivaroxaban [Xarelto 15 mg Tablet] 15 mg PO BIDBS #21 tablet 03/10/18 Allergies/Adverse Reactions: procaine HCl [From Novocain] Allergy (Intermediate, Verified 03/11/16 11:06) SIGNIFICANT SWELLING AND BRUISING AT SITE OF INJ aloe polysaccharide [From Novacort] Allergy (Verified 03/11/16 11:06) hydrocortisone acetate [From Novacort] Allergy (Verified 03/11/16 11:06) pramoxine HCl [From Novacort] Allergy (Verified 03/11/16 11:06) morphine [Morphine] Adverse Reaction (Verified 03/11/16 11:06) Review of Systems Constitutional: PRESENT: weakness. ABSENT: chills, fever(s) Eyes: ABSENT: visual disturbances Ears: ABSENT: hearing changes Nose, Mouth, and Throat: ABSENT: mouth pain Cardiovascular: ABSENT: chest pain, palpitations Respiratory: PRESENT: cough, dyspnea. ABSENT: hemoptysis Gastrointestinal: ABSENT: abdominal pain, bloating, coffee ground emesis, dysphagia, hematemesis, hematochezia Genitourinary: ABSENT: dysuria, hematuria Integumentary: ABSENT: pruritus, rash Neurological: ABSENT: abnormal gait, abnormal movements, abnormal speech, focal weakness, frequent falls, lack of coordination, memory loss Psychiatric: ABSENT: hallucinations, homidical ideation, suicidal ideation Endocrine: ABSENT: cold intolerance, heat intolerance, polydipsia, polyuria Hematologic/Lymphatic: PRESENT: lymphadenopathy Allergic/Immunologic: ABSENT: seasonal rhinorrhea Physical Exam Vital Signs: Temp Pulse Resp BP Pulse Ox 97.4 F 99 19 139/77 H 95 03/05/18 08:40 03/05/18 08:40 03/05/18 08:40 03/05/18 08:40 03/05/18 08:40 Intake & Output 03/04/18 03/05/18 03/06/18 06:59 06:59 06:59 Intake Total 550 1673 Output Total 2100 850 Balance -1550 823 Weight 55.5 kg General appearance: PRESENT: no acute distress, cooperative, disheveled, thin Head exam: PRESENT: atraumatic, normocephalic Eye exam: PRESENT: conjunctiva pale, EOMI. ABSENT: nystagmus, scleral icterus Mouth exam: PRESENT: dry mucosa, neck supple, tongue midline Neck exam: ABSENT: carotid bruit, JVD, lymphadenopathy, thyromegaly, tracheal deviation, tracheostomy Respiratory exam: PRESENT: decreased breath sounds, prolonged expiratory phas, rhonchi, unlabored. ABSENT: retraction, stridor Cardiovascular exam: PRESENT: RRR, +S1, +S2 Pulses: PRESENT: normal radial pulses GI/Abdominal exam: PRESENT: soft. ABSENT: tenderness Extremities exam: ABSENT: calf tenderness, clubbing, joint swelling, pedal edema Neurological exam: PRESENT: alert, awake Psychiatric exam: PRESENT: appropriate affect Skin exam: PRESENT: dry, warm Results Laboratory Results: 03/05/18 04:43 03/05/18 04:43 03/05/18 03/05/18 04:43 04:43 WBC 11.0 H RBC 3.46 L Hgb 11.2 L Hct 32.6 L MCV 94 MCH 32.5 MCHC 34.4 RDW 14.0 Plt Count 272 Sodium 136.6 L Potassium 4.6 Chloride 90 L Carbon Dioxide 33 H Anion Gap 14 BUN 23 H Creatinine 0.72 Est GFR ( Amer) > 60 Est GFR (Non-Af Amer) > 60 Glucose 113 H Calcium 9.0 03/05/18 04:43 NT-Pro-B Natriuret Pep 7290 H Impressions: Chest X-Ray 03/03/18 06:26 IMPRESSION: Moderate right-sided pleural effusion with right pulmonary airspace opacities copyright 2011 [id number]- All Rights Reserved Chest/Abdomen CTA 03/03/18 08:05 IMPRESSION: The poor filling of the right upper lobe apical segmental pulmonary artery and right basilar segmental pulmonary arteries worrisome for subacute pulmonary emboli. Persistent right lung dense consolidation with small right pleural effusion. Small to moderate left pleural effusion Significant cardiomegaly Assessment & Plan - Diagnosis (1) Atrial fibrillation Qualifiers: Atrial fibrillation type: chronic Qualified Code(s): I48.2 - Chronic atrial fibrillation Is this a current diagnosis for this admission?: Yes Plan: Rate stable over anticoagulated (2) Coronary artery disease involving autologous artery coronary bypass graft Is this a current diagnosis for this admission?: Yes Plan: Asymptomatically this time (3) Mediastinal lymphadenopathy Is this a current diagnosis for this admission?: Yes Plan: Need a current tissue diagnosis (4) Pleural effusion Is this a current diagnosis for this admission?: Yes Plan: Continue Pleurx catheter (5) Pulmonary embolism Qualifiers: Chronicity: acute Is this a current diagnosis for this admission?: Yes Plan: Lovenox or Eliquis she has multiple reasons to have recurrent PE
== END 2018-03-10 17:30 | DRG 193 ==
LOC: ER 06:09 → EH 10:11 → 4W 17:05 → 4S 03-04 19:20
PROVIDERS: ADMIT Internal Medicine; ATTEND Internal Medicine
PROC: 5A09557 Assistance with Respiratory Ventilation, Greater than 96 Consecutive Hours, Continuous Positive Airway Pressure (ICD-10-PCS; 2018-03-04)
PROC: 0W9B3ZX Drainage of Left Pleural Cavity, Percutaneous Approach, Diagnostic (ICD-10-PCS; principal; 2018-03-08)
DX: J13 Pneumonia due to Streptococcus pneumoniae (principal); J96.21 Acute and chronic respiratory failure with hypoxia; I26.99 Other pulmonary embolism without acute cor pulmonale; J98.59 Other diseases of mediastinum, not elsewhere classified; J44.1 Chronic obstructive pulmonary disease with (acute) exacerbation; E46 Unspecified protein-calorie malnutrition; B37.0 Candidal stomatitis; J91.8 Pleural effusion in other conditions classified elsewhere; J44.0 Chronic obstructive pulmonary disease with (acute) lower respiratory infection; I11.0 Hypertensive heart disease with heart failure; I25.10 Atherosclerotic heart disease of native coronary artery without angina pectoris; F32.9 Major depressive disorder, single episode, unspecified; Z95.1 Presence of aortocoronary bypass graft; Z79.01 Long term (current) use of anticoagulants; F17.200 Nicotine dependence, unspecified, uncomplicated; I50.813 Acute on chronic right heart failure; E03.9 Hypothyroidism, unspecified; I25.2 Old myocardial infarction; E78.5 Hyperlipidemia, unspecified; Z97.8 Presence of other specified devices; K21.9 Gastro-esophageal reflux disease without esophagitis; Z82.49 Family history of ischemic heart disease and other diseases of the circulatory system; Z99.81 Dependence on supplemental oxygen; I48.2 Chronic atrial fibrillation; M19.90 Unspecified osteoarthritis, unspecified site; R79.1 Abnormal coagulation profile; Z66 Do not resuscitate; Z68.20 Body mass index [BMI] 20.0-20.9, adult; R59.1 Generalized enlarged lymph nodes; Z96.651 Presence of right artificial knee joint; Z88.6 Allergy status to analgesic agent; Z88.8 Allergy status to other drugs, medicaments and biological substances
CPT/HCPCS: 32555; 36415; 51702; 71045; 71047; 71275; 76604; 80048; 80053; 81001; 82150; 82550; 82945; 83605; 83615; 83735; 83880; 84157; 84484; 85025; 85027; 85610; 85730; 87015; 87040; 87070; 87075; 87086; 87116; 87205; 87206; 88305; 89050; 93005; 93010; 93306; 94667; 94668; 94799; 96374; 99285; G8978-GP; G8979-GP; J0696; J1940; J1956; J2920; J2930; J3490; J7512; J7620

== ENCOUNTER 2018-03-17 11:32 | Inpatient (IN) | payer MEDICARE, BC ==
[~2018-03-17 11:32] MED LIST: SUCCINYLCHOLINE CHLORIDE INJ 200 MG/10 ML VIAL ONE
--- NOTE | 2018-03-17 12:07 | ER Document Report ---
ED General - General Stated Complaint: DIFFICULTY BREATHING Time Seen by Provider: 03/17/18 11:43 Notes: Patient is a 82-year-old female with CHF, atrial fibrillation, COPD that presents to the emergency department for chief complaint of respiratory distress. Patient was at her senior care facility, getting rehab, after being admitted for large right-sided pleural effusion, she initially was seen at [facility] for this, and had a Pleurx catheter placed, to help with draining, initially she had 8 L drained off, according to the patient's son. More recent ly she is been in rehab, and today she was more short of breath according to staff over there and EMS was called, and she was brought to the ED, she was conversant initially with EMS, but then became more lethargic as she came into the ED, and was taking very shallow breaths. According to the patient's son at bedside he states she has been more confused recently, and talking nonsensically, they are worried about possible UTI. He states she was on antibiotics and being treated for pneumonia, was actually due for a PET scan because her not sure why she is having this large effusion. The patient is unable to provide any history at this time, she is essentially unresponsive on my evaluation. Past Medical History: Atrial fibrillation, hypertension, CHF, COPD, right-sided pleural effusion, CAD Past Surgical History: CABG, Pleurx catheter drain placement Social History: Former smoker, no alcohol or drug use. Family History: Reviewed and noncontributory for presenting illness Allergies: Reviewed, see documented allergy list. REVIEW OF SYSTEMS: Complete review of systems is not obtainable at this time given the patient's current mental state. PHYSICAL EXAMINATION: Vital signs reviewed, nursing noted reviewed. GENERAL: Elderly, frail-appearing female, in acute respiratory distress HEAD: There is a bruised area over the patient's left forehead, per the son, this is not new, no new head injury. EYES: Eyes appear normal, extraocular movements intact, sclera anicteric, conjunctiva are normal. ENT: nares patent, oropharynx clear without exudates. Moist mucous membranes. NECK: Normal range of motion, supple without lymphadenopathy LUNGS: Rapid shallow breathing, coarse and rhonchorous lung sounds on the right, diminished at the base on the right, clear lung sounds in the left lung palmer. Acute respiratory distress. HEART: Heart rate tachycardic, irregular rhythm, atrial fibrillation on telemetry, 2/6 systolic murmur noted. ABDOMEN: Soft, nontender, normoactive bowel sounds. No rebound, guarding, or rigidity. No masses appreciated. EXTREMITIES: Nontender, good range of motion, no pitting or edema. NEUROLOGICAL: GCS: 10, no focal neurological deficits. Moves all extremities spontaneously Motor and sensory grossly intact on exam. PSYCH: Unresponsive SKIN: Warm, Dry, normal turgor, no rashes or lesions noted on exposed skin TRAVEL OUTSIDE OF THE [place] IN LAST 30 DAYS: No - Related Data Allergies/Adverse Reactions: procaine HCl [From Novocain] Allergy (Intermediate, Verified 03/11/16 11:06) SIGNIFICANT SWELLING AND BRUISING AT SITE OF INJ aloe polysaccharide [From Novacort] Allergy (Verified 03/11/16 11:06) hydrocortisone acetate [From Novacort] Allergy (Verified 03/11/16 11:06) pramoxine HCl [From Novacort] Allergy (Verified 03/11/16 11:06) morphine [Morphine] Adverse Reaction (Verified 03/11/16 11:06) Past Medical History - Social History Family History: CAD - Past Medical History Cardiac Medical History: Reports: Hx Atrial Fibrillation, Hx Coronary Artery Disease, Hx Heart Attack, Hx Hypercholesterolemia, Hx Hypertension Denies: Hx Congestive Heart Failure, Hx Peripheral Vascular Disease, Hx Pulmonary Embolism, Hx Heart Murmur Pulmonary Medical History: Reports: Hx Pneumonia - A BABY Denies: Hx Asthma, Hx Bronchitis, Hx Respiratory Failure, Hx Sleep Apnea, Hx Tuberculosis Comment Only: Hx COPD - denies Endocrine Medical History: Reports: Hx Hypothyroidism - NEW DX, meds x 1 week only. Denies: Hx Graves' Disease, Hx Hyperthyroidism Renal/ Medical History: Denies: Hx End Stage Renal Disease, Hx Kidney Stones, Hx Peritoneal Dialysis Malignancy Medical History: Denies: Hx Lung Cancer GI Medical History: Reports: Hx Ulcer - son uncertain. Denies: Hx Crohn's Disease, Hx Hiatal Hernia, Hx Irritable Bowel, Hx Liver Failure, Hx Pancreatitis. Comment Only: Hx Gastroesophageal Reflux Disease - denies Musculoskeletal Medical History: Reports Hx Arthritis, Denies Hx Fibromyalgia, Denies Hx Muscular Dystrophy Psychiatric Medical History: Traumatic Medical History: Denies: Hx Fractures Past Surgical History: Reports: Hx Cardiac Catheterization - STENT, Hx Cardiac Surgery - BYPASS X 4, Hx Coronary Artery Bypass Graft - 4 vessel CABG 2004, Hx Orthopedic Surgery - RIGHT TKR. Denies: Hx Appendectomy, Hx Bowel Surgery, Hx Section, Hx Cholecystectomy, Hx Colostomy, Hx Gastric Bypass Surgery, Hx Herniorrhaphy, Hx Hysterectomy, Hx Mastectomy, Hx Tonsillectomy, Hx Tubal Ligation - Immunizations Hx Diphtheria, Pertussis, Tetanus Vaccination: Yes Hx Pneumococcal Vaccination: 12/28/08 Physical Exam - Vital signs Vitals: Pulse Ox 92 03/17/18 11:43 Course - Re-evaluation Re-evalutation: Patient seen and examined vital signs reviewed. Laboratory data and imaging were ordered as appropriate for the patient's pr esenting symptoms and complaint, with consideration of any critical or life threatening conditions that may be associated with their obtained history and exam as noted above. Patient was in acute respiratory distress upon arrival, shallow breathing, and becoming unresponsive, pulse ox in the low 80s, on a nonrebreather, [id number] was a place, patient was given assisted breaths, was able to be bagged up to 92%, with 100% FiO2, this point patient was intubated using glide scope with a 7.5 tube, as noted in procedure note. No complications. Intubation and airway protection, patient was placed on the ventilator, and was improving, blood pressure remained stable, I elected to use Versed for sedation as the patient has a history of CABG, and heart failure, and felt that propofol would dramatically decrease the patient's blood pressure, potentially result in arrest. She was dosed with IV fentanyl 100 mcg initially as well to help with her initial sedation. Results were reviewed when available and demonstrated blood work consistent with severe sepsis, elevated lactic acid, significant leukocytosis, and a chest x- ray consistent with right upper lobe pneumonia, given patient's been in and out of hospitals, started the patient on IV cefepime, as well as vancomycin. Blood cultures obtained prior to antibiotics, 30 mL/kg IV fluid bolus was given. Patient was noted to have a moderate pleural effusion on her chest x-ray as well on the right, she does have the Pleurx catheter drain, but I did not feel that this was the immediate cause of her respiratory failure, felt was more likely pneumonia, given other findings in her blood work, and on the chest x-ray. She was also noted to be hyperkalemic, and started on IV calcium gluconate, given sodium bicarbonate IV, as well as a small dose of IV Lasix, to help assist with her hyperkalemia. With improving acidosis, with the ventilator, as well, this should help the overall hyperkalemia. The patient was re-evaluated and was stabilizing, blood pressure remaining stable, able to come down on the initial FiO2 of 80% down to 50% Evaluation was most consistent with severe sepsis, pneumonia, lactic acidosis, hyperkalemia, hyponatremia Results were discussed with the patient's son at this point after careful consideration I feel that that patient should be admitted to the hospital. This was discussed with the patient's son that it is in the best interest for their care to be admitted for further evaluation and management. Patient agreed with this plan of care. A call was placed to the admitted physician, Dr. Bashir who graciously accepted the patient onto their service. *Note is created using voice recognition software and may contain spelling, syntax or grammatical errors. Laboratory 03/17/18 03/17/18 03/17/18 12:20 12:20 12:20 WBC 23.3 H RBC 3.27 L Hgb 10.5 L Hct 31.4 L MCV 96 MCH 32.1 MCHC 33.4 RDW 14.3 H Plt Count 340 Total Counted 100 Seg Neutrophils % Not Reportable Seg Neuts % (Manual) 94 H Lymphocytes % Not Reportable Lymphocytes % (Manual) 1 L Monocytes % Not Reportable Monocytes % (Manual) 5 Eosinophils % Not Reportable Eosinophils % (Manual) 0 Basophils % Not Reportable Basophils % (Manual) 0 Absolute Neutrophils Not Reportable Abs Neuts (Manual) 21.9 H Absolute Lymphocytes Not Reportable Abs Lymphs (Manual) 0.2 L Absolute Monocytes Not Reportable Abs Monocytes (Manual) 1.2 Absolute Eosinophils Not Reportable Absolute Eos (Manual) 0.0 Absolute Basophils Not Reportable Abs Basophils (Manual) 0.0 Toxic Granulation 1+ Platelet Comment ADEQUATE Anisocytosis SLIGHT PT 40.6 H INR 3.97 VBG pH VBG pCO2 VBG HCO3 VBG Base Excess Sodium 124.7 L Potassium 6.0 H* Chloride 90 L Carbon Dioxide 24 Anion Gap 11 BUN 22 H Creatinine 0.52 Est GFR ( Amer) > 60 Est GFR (Non-Af Amer) > 60 Glucose 197 H Lactic Acid Calcium 8.4 Total Bilirubin 1.0 Direct Bilirubin 0.3 Neonat Total Bilirubin Not Reportable Neonat Direct Bilirubin Not Reportable Neonat Indirect Bili Not Reportable AST 37 H ALT 36 Alkaline Phosphatase 79 Troponin I NT-Pro-B Natriuret Pep Total Protein 5.6 L Albumin 3.1 L Urine Color Urine Appearance Urine pH Ur Specific [place] Urine Protein Urine Glucose (UA) Urine Ketones Urine Blood Urine Nitrite Urine Bilirubin Urine Urobilinogen Ur Leukocyte Esterase Urine WBC (Auto) Urine RBC (Auto) U Hyaline Cast (Auto) Squamous Epi Cells Auto Urine Mucus (Auto) Urine Yeast (Budding) Urine Ascorbic Acid 03/17/18 03/17/18 03/17/18 12:20 12:20 12:20 WBC RBC Hgb Hct MCV MCH MCHC RDW Plt Count Total Counted Seg Neutrophils % Seg Neuts % (Manual) Lymphocytes % Lymphocytes % (Manual) Monocytes % Monocytes % (Manual) Eosinophils % Eosinophils % (Manual) Basophils % Basophils % (Manual) Absolute Neutrophils Abs Neuts (Manual) Absolute Lymphocytes Abs Lymphs (Manual) Absolute Monocytes Abs Monocytes (Manual) Absolute Eosinophils Absolute Eos (Manual) Absolute Basophils Abs Basophils (Manual) Toxic Granulation Platelet Comment Anisocytosis PT INR VBG pH 7.18 L* VBG pCO2 67.0 H* VBG HCO3 24.2 VBG Base Excess -5.1 Sodium Potassium Chloride Carbon Dioxide Anion Gap BUN Creatinine Est GFR ( Amer) Est GFR (Non-Af Amer) Glucose Lactic Acid 5.2 H Calcium Total Bilirubin Direct Bilirubin Neonat Total Bilirubin Neonat Direct Bilirubin Neonat Indirect Bili AST ALT Alkaline Phosphatase Troponin I < 0.012 NT-Pro-B Natriuret Pep 6580 H Total Protein Albumin Urine Color Urine Appearance Urine pH Ur Specific [place] Urine Protein Urine Glucose (UA) Urine Ketones Urine Blood Urine Nitrite Urine Bilirubin Urine Urobilinogen Ur Leukocyte Esterase Urine WBC (Auto) Urine RBC (Auto) U Hyaline Cast (Auto) Squamous Epi Cells Auto Urine Mucus (Auto) Urine Yeast (Budding) Urine Ascorbic Acid 03/17/18 12:20 WBC RBC Hgb Hct MCV MCH MCHC RDW Plt Count Total Counted Seg Neutrophils % Seg Neuts % (Manual) Lymphocytes % Lymphocytes % (Manual) Monocytes % Monocytes % (Manual) Eosinophils % Eosinophils % (Manual) Basophils % Basophils % (Manual) Absolute Neutrophils Abs Neuts (Manual) Absolute Lymphocytes Abs Lymphs (Manual) Absolute Monocytes Abs Monocytes (Manual) Absolute Eosinophils Absolute Eos (Manual) Absolute Basophils Abs Basophils (Manual) Toxic Granulation Platelet Comment Anisocytosis PT INR VBG pH VBG pCO2 VBG HCO3 VBG Base Excess Sodium Potassium Chloride Carbon Dioxide Anion Gap BUN Creatinine Est GFR ( Amer) Est GFR (Non-Af Amer) Glucose Lactic Acid Calcium Total Bilirubin Direct Bilirubin Neonat Total Bilirubin Neonat Direct Bilirubin Neonat Indirect Bili AST ALT Alkaline Phosphatase Troponin I NT-Pro-B Natriuret Pep Total Protein Albumin Urine Color YELLOW Urine Appearance SLIGHTLY-CLOUDY Urine pH 5.0 Ur Specific [place] 1.023 Urine Protein 30 H Urine Glucose (UA) NEGATIVE Urine Ketones NEGATIVE Urine Blood NEGATIVE Urine Nitrite NEGATIVE Urine Bilirubin NEGATIVE Urine Urobilinogen NEGATIVE Ur Leukocyte Esterase NEGATIVE Urine WBC (Auto) 2 Urine RBC (Auto) 8 U Hyaline Cast (Auto) 1 Squamous Epi Cells Auto <1 Urine Mucus (Auto) RARE Urine Yeast (Budding) PRESENT Urine Ascorbic Acid 20 H Chest X-Ray 03/17/18 12:03 IMPRESSION: 1. Mildly worsened extensive right sided airspace disease with m oderate effusion. 2. Intubation with endotracheal tube at midthoracic trachea. - Vital Signs Vital signs: Temp Pulse Resp BP Pulse Ox 92 03/17/18 11:43 - Laboratory Result Diagrams: 03/17/18 12:20 03/17/18 12:20 Laboratory results interpreted by me: 03/17/18 03/17/18 03/17/18 12:20 12:20 12:20 WBC 23.3 H RBC 3.27 L Hgb 10.5 L Hct 31.4 L RDW 14.3 H Seg Neuts % (Manual) 94 H Lymphocytes % (Manual) 1 L Abs Neuts (Manual) 21.9 H Abs Lymphs (Manual) 0.2 L PT 40.6 H VBG pH VBG pCO2 Sodium 124.7 L Potassium 6.0 H* Chloride 90 L BUN 22 H Glucose 197 H Lactic Acid AST 37 H NT-Pro-B Natriuret Pep Total Protein 5.6 L Albumin 3.1 L Urine Protein Urine Ascorbic Acid 03/17/18 03/17/18 03/17/18 12:20 12:20 12:20 WBC RBC Hgb Hct RDW Seg Neuts % (Manual) Lymphocytes % (Manual) Abs Neuts (Manual) Abs Lymphs (Manual) PT VBG pH 7.18 L* VBG pCO2 67.0 H* Sodium Potassium Chloride BUN Glucose Lactic Acid 5.2 H AST NT-Pro-B Natriuret Pep 6580 H Total Protein Albumin Urine Protein Urine Ascorbic Acid 03/17/18 12:20 WBC RBC Hgb Hct RDW Seg Neuts % (Manual) Lymphocytes % (Manual) Abs Neuts (Manual) Abs Lymphs (Manual) PT VBG pH VBG pCO2 Sodium Potassium Chloride BUN Glucose Lactic Acid AST NT-Pro-B Natriuret Pep Total Protein Albumin Urine Protein 30 H Urine Ascorbic Acid 20 H - EKG Interpretation by Me Additional EKG results interpreted by me: EKG demonstrates atrial fibrillation with a ventricular rate of 92 bpm, normal axis, QTC prolonged at 520 ms, no ST changes noted, this is compared with prior EKG from 03/03/2018, without significant change. Procedures - Intubation Orotracheal Airway evaluation: Normal anatomy Mallampati Classification: Class 1 Medications: Etomidate - 15mg, Succinylcholine - 100mg Intubation method: Orotracheal Blade size: 4 Equipment used: Glidescope ETT size: 7.5 ETT secured at: Gums ETT secured at (cm): 23 Breath Sounds after Intubation: Equal End tidal CO2 confirmed: Yes Ventilator settings: SIMV Tidal volume: 350 FiO2: 80 Respirations: 16 Pressure support: 5 PEEP: 5 Post Intubation Xray: Yes Intubation Complications: No complications Critical Care Note - Critical Care Note Total time excluding time spent on procedures (mins): 55 Comments: Critical care time 55 minutes exclusive from separate billable procedures for a patient requiring complex medical decision making, and high potential for clinical deterioration. In a patient with acute respiratory failure requiring intubation, and severe electrolyte abnormalities requiring intervention. Time spent obtaining history from patient or surrogate, discussions with consultants, development of treatment plan with patient or surrogate, evaluation of patient's response to treatment, examination of patient, ordering and performing treatments and interventions, ordering and review of laboratory studies, re- evaluation of patient's condition, ordering and review of radiographic studies and review of old charts Discharge - Discharge Clinical Impression: Pleural effusion, Healthcare-associated pneumonia, Severe sepsis, Hyperkalemia, Hyponatremia, Acute respiratory acidosis Acute and chronic respiratory failure Qualifiers: Respiratory failure complication: hypoxia and hypercapnia Qualified Code(s): J96.21 - Acute and chronic respiratory failure with hypoxia Atrial fibrillation Qualifiers: Atrial fibrillation type: unspecified Qualified Code(s): I48.91 - Unspecified atrial fibrillation Condition: Serious Disposition: ADMITTED INPATIENT Admitting Provider: Hospitalist - Dr. Bashir Unit Admitted: ICU
[2018-03-17] MEDS ORDERED: FENTANYL CITRATE INJ/PF 100 MCG/2 ML AMPUL IV ONE (12:16)
[2018-03-17] MEDS: MIDAZOLAM HCL 50 MG/100 ML RTUINJ IV PRN (12:20)
[2018-03-17 12:41] LABS: VENOUS BLOOD BASE EXCESS -5.1 mmol/L; VENOUS BLOOD HCO3 24.2 mmol/L (20-32)
--- NOTE | 2018-03-17 12:43 | RADIOLOGY REPORT (SQ) ---
EXAM DESCRIPTION: CHEST SINGLE VIEW COMPLETED DATE/TIME: 03/17/2018 12:28 pm REASON FOR STUDY: respiratory distress, ett placement COMPARISON: 03/08/2018 EXAM PARAMETERS: NUMBER OF VIEWS: One view. TECHNIQUE: Single frontal radiographic view of the chest acquired. RADIATION DOSE: NA LIMITATIONS: None. FINDINGS: LUNGS AND PLEURA: Lungs demonstrate extensive patchy right-sided airspace disease, mildly worsened from prior. There is a moderate right-sided effusion. Stable left hemithorax. No pneumoth orax. MEDIASTINUM AND HILAR STRUCTURES: Enlarged, stable. HEART AND VASCULAR STRUCTURES: Enlarged, stable. Median sternotomy and prior CABG changes. BONES: Median sternotomy changes. No additional bony abnormalities. HARDWARE: Endotracheal tube has been placed with tip at midthoracic trachea. Enteric tube tip below diaphragm but excluded by collimation. Stable right lung base pleural drain. OTHER: No other significant finding. IMPRESSION: 1. Mildly worsened extensive right sided airspace disease with moderate effusion. 2. Intubation with endotracheal tube at midthoracic trachea. TECHNICAL DOCUMENTATION: JOB ID: [id number] [employer]- All Rights Reserved Reading location - IP/workstation name: [facility]
[2018-03-17 12:44] LABS: VENOUS BLOOD PH 7.18 (7.30-7.42)
[2018-03-17 12:52] LABS: INTERNATIONAL RATION (INR) 3.97; PROTHROMBIN TIME 40.6 SEC (11.4-15.4)
--- NOTE | 2018-03-17 12:54 | EKG REPORT ---
SEVERITY:- ABNORMAL ECG - ATRIAL FIBRILLATION, V-RATE 74-101 INCOMPLETE RIGHT BUNDLE BRANCH BLOCK CONSIDER ANTEROSEPTAL INFARCT : Confirmed by: Wes Noe MD 17-Mar-2018 12:54:17
[2018-03-17 12:59] LABS: ALANINE AMINOTRANSFERASE 36 U/L (9-52); ALBUMIN 3.1 g/dL (3.5-5.0); ALKALINE PHOSPHATASE 79 U/L (38-126); ANION GAP 11 (5-19); ASPARTATE AMINO TRANSFERASE 37 U/L (14-36); BILIRUBIN,DIRECT 0.3 mg/dL (0.0-0.4); BLOOD UREA NITROGEN 22 mg/dL (7-20); CALCIUM 8.4 mg/dL (8.4-10.2); CARBON DIOXIDE 24 mmol/L (22-30); CHLORIDE 90 mmol/L (98-107); GLUCOSE 197 mg/dL (75-110); SODIUM 124.7 mmol/L (137-145); TOTAL PROTEIN 5.6 g/dL (6.3-8.2)
[2018-03-17] MEDS ORDERED: NORMAL SALINE 1000 ML 1,000 ML IV ONE ×2 (13:08→18:43)
[2018-03-17] MEDS ORDERED: CALCIUM GLUCONATE 1000 MG/10 ML INJ IV ONE (13:09)
[2018-03-17] MEDS ORDERED: FUROSEMIDE INJ/PF 20 MG/2 ML SDV IV ONE (13:09)
[2018-03-17] MEDS ORDERED: SODIUM BICARBONATE 8.4% INJ 50 MEQ/50 ML DISP.SYRIN IV ONE (13:09)
[2018-03-17 13:10] LABS: HEMATOCRIT 31.4 % (36.0-47.0); HEMOGLOBIN 10.5 g/dL (12.0-15.5); MEAN CORPUSCULAR HEMOGLOBIN 32.1 pg (27.0-33.4); MEAN CORPUSCULAR HGB CONC 33.4 g/dL (32.0-36.0); MEAN CORPUSCULAR VOLUME 96 fl (80-97); NT PRO BNP 6580 pg/mL (<450); PLATELET COUNT 340 10^3/uL (150-450); RED BLOOD COUNT 3.27 10^6/uL (3.72-5.28); RED CELL DISTRIBUTION WIDTH 14.3 % (11.5-14.0); WHITE BLOOD COUNT 23.3 10^3/uL (4.0-10.5)
[2018-03-17] MEDS ORDERED: RINGERS SOLUTION,LACTATED 500 ML IV ONE (13:11)
[2018-03-17] MEDS ORDERED: CEFEPIME 1 GM/D5W RTU 1 GM/50 ML RTUPB IV ONE (13:12)
[2018-03-17] MEDS ORDERED: VANCOMYCIN HCL INJ 1000 MG VIAL IV ONE (13:12)
[2018-03-17 13:16] LABS: TROPONIN I < 0.012 ng/mL
[2018-03-17 13:25] LABS: ABSOLUTE LYMPHOCYTES# (MANUAL) 0.2 10^3/uL (0.5-4.7); ABSOLUTE MONOCYTES # (MANUAL) 1.2 10^3/uL (0.1-1.4); ABSOLUTE NEUTROPHILS# (MANUAL) 21.9 10^3/uL (1.7-8.2); BASOPHILS % (MANUAL) 0 % (0-2); EOSINOPHILS % (MANUAL) 0 % (0-6); LYMPHOCYTES % (MANUAL) 1 % (13-45); MONOCYTES % (MANUAL) 5 % (3-13); SEGMENTED NEUTROPHILS % (MAN) 94 % (42-78); TOTAL CELLS COUNTED 100
[2018-03-17 13:26] LABS: ANISOCYTOSIS SLIGHT; PLATELET COMMENT ADEQUATE; TOXIC GRANULATION 1+
[2018-03-17 13:42] LABS: APPEARANCE,URINE SLIGHTLY-CLOUDY; BILIRUBIN,URINE NEGATIVE (NEGATIVE); COLOR,URINE YELLOW; GLUCOSE, URINE NEGATIVE (NEGATIVE); KETONES,URINE NEGATIVE (NEGATIVE); LEUKOCYTE ESTERASE,URINE NEGATIVE (NEGATIVE); NITRITE,URINE NEGATIVE (NEGATIVE); PROTEIN,URINE 30 mg/dL (NEGATIVE); URINE SPECIFIC GRAVITY 1.023; UROBILINOGEN,URINE NEGATIVE mg/dL (<2.0)
[2018-03-17] MEDS ORDERED: ETOMIDATE INJ/PF 20 MG/10 ML SDV IV ONE (13:58)
[2018-03-17] MEDS ORDERED: NORMAL SALINE 250 ML IV ONE (14:20)
[2018-03-17 14:39] LABS: ARTERIAL BLOOD BASE EXCESS 6.1 mmol/L; ARTERIAL BLOOD H2CO3 1.54 mmol/L (1.05-1.35); ARTERIAL BLOOD HCO3 31.7 mmol/L (20-24); ARTERIAL BLOOD O2 SATURATION 93.8 % (94-98); ARTERIAL BLOOD PH 7.41 (7.35-7.45); ARTERIAL BLOOD PO2 69.2 mmHg (80-100); ARTERIAL BLOOD TOTAL CO2 33.3 mmol/L (21-25)
[2018-03-17 14:41] LABS: ARTERIAL BLOOD FIO2 60%
[2018-03-17] MEDS ORDERED: GLUCAGON,HUMAN RECOMB 1 MG INJ SUBCUT PRN (14:55)
[2018-03-17] MEDS ORDERED: DEXTROSE 40% GEL 15 GM TUBE PO PRN ×2 (14:55)
[2018-03-17] MEDS ORDERED: LEVALBUTEROL HCL NEB 1.25 MG/3 ML AMPUL NEB PRN (14:55)
[2018-03-17] MEDS ORDERED: GUAIFENESIN SYRP 200 MG/10 ML UDC PO PRN (14:55)
[2018-03-17] MEDS ORDERED: DEXTROSE 50%-WATER 25 GM/50 ML DISP.SYRIN IV PRN ×2 (14:55)
[2018-03-17] MEDS ORDERED: ACETAMINOPHEN 325 MG TABLET GT PRN (14:55)
[2018-03-17] MEDS ORDERED: PHARMACY COMMUNICATION ORDER MC NR (15:00)
[2018-03-17] MEDS ORDERED: IPRATROPIUM/ALBUTEROL 0.5-2.5 MG/3 ML AMPUL NEB PRN (15:13)
[2018-03-17] MEDS ORDERED: ACETAMINOPHEN 325 MG TABLET NG PRN (15:13)
[2018-03-17] MEDS ORDERED: VANCOMYCIN HCL 0 MG in DEXTROSE 5%-WATER 250 ML IV NR (15:15)
[2018-03-17 17:56] LABS: ANION GAP 7 (5-19); BLOOD UREA NITROGEN 23 mg/dL (7-20); CALCIUM 8.5 mg/dL (8.4-10.2); CARBON DIOXIDE 27 mmol/L (22-30); CHLORIDE 93 mmol/L (98-107); GLUCOSE 137 mg/dL (75-110); POTASSIUM 5.2 mmol/L (3.6-5.0); SODIUM 126.5 mmol/L (137-145)
[2018-03-17] MEDS: RIVAROXABAN 15 MG TABLET NG SCH (18:17)
[2018-03-17] MEDS ORDERED: NORMAL SALINE 1000 ML 1,000 ML IV PRN (18:44)
[2018-03-17] MEDS: METOPROLOL TARTRATE 50 MG TABLET NG SCH (21:05)
[2018-03-17] MEDS: SIMVASTATIN 40 MG TABLET NG SCH (21:12)
[2018-03-17] MEDS: FAMOTIDINE INJ/PF 20 MG/2 ML SDV IV SCH (21:13)
[2018-03-17] MEDS: BUDESONIDE NEB 0.5 MG/2 ML AMPUL NEB SCH (21:13)
[2018-03-17] MEDS: IPRATROPIUM/ALBUTEROL 0.5-2.5 MG/3 ML AMPUL NEB SCH (21:13)
--- NOTE | 2018-03-17 21:24 | PDOC H&P ---
History of Present Illness Admission Date/PCP: 03/17/18 13:36 SABINO [place]ORTH Patient complains of: Increased shortness of breath with history of chronic pleural effusion History of Present Illness: At the time of this encounter the patient is already intubated. Much of the information is from her sons as well as old records. PARISH NOVAK is a 82 year old female with a Pleurx catheter on the right and in the midst of a workup for her chronic pulmonary effusions with mediastinal lymphadenopathy. Her sons report that she was experiencing increasing shortness of breath over the last several days. Approximately 2 weeks ago she was found to have a pulmonary embolus that was treated at [facility] and she just discharged approximately 1 week ago. She was brought to the emergency department and found to have a right lower lobe pneumonia. Further investigation showed that she had an elevated lactic acid, respiratory acidosis and worsening dyspnea. For fear of her condition rapidly deteriorating and because she is a full code Dr. Mills intubated the patient. Past Medical History Cardiac Medical History: Reports: Atrial Fibrillation, Coronary Artery Disease, Myocardial Infarction, Hyperlipidema, Hypertension Denies: Congestive Heart Failure, Peripheral Vascular Disease, Pulmonary Embolism, Heart Murmur Pulmonary Medical History: Reports: Pneumonia - A BABY Denies: Asthma, Bronchitis, Respiratory Failure, Sleep Apnea, Tuberculosis Comment Only: Chronic Obstructive Pulmonary Disease (COPD) - denies Endocrine Medical History: Reports: Hypothyroidism - NEW DX, meds x 1 week only Denies: Hyperthyroidism Renal/ Medical History: Denies: End Stage Renal Disease Malignancy Medical History: Denies: Lung Cancer GI Medical History: Denies: Crohn's Disease, Hiatal Hernia Comment Only: Gastroesophageal Reflux Disease - denies Musculoskeltal Medical History: Reports: Arthritis Denies: Fibromyalgia Psychiatric Medical History: Hematology: Comment Only: Anemia - denies Past Surgical History Past Surgical History: Reports: Cardiac Catheterization - STENT, Coronary Artery Bypass Graft - 4 vessel CABG 2004, Orthopedic Surgery - RIGHT TKR Denies: Amputation, Appendectomy, Section, Cholecystectomy, Colostomy, Gastric Bypass Surgery, Herniorrhaphy, Hysterectomy, Mastectomy, Tonsillectomy, Tubal Ligation Social History Information Source: Relative Lives with: Other - Currently in the care home for short-term rehab Smoking Status: Unknown if Ever Smoked Hx Recreational Drug Use: No Drugs: None Hx Prescription Drug Abuse: No - Advance Directive Resuscitation Status: Full Code Family History Family History: CAD Parental Family History Reviewed: Yes Children Family History Reviewed: Yes Sibling(s) Family History Reviewed.: Yes Medication/Allergy Home Medications: Calcium Carbonate/Vitamin D3 [Calcium 600-Vit D3 500 Softgel] 1 cap PO DAILY 03/03/18 Levothyroxine Sodium [Synthroid 0.025 mg Tablet] 25 mcg PO Q6AM 03/03/18 Metoprolol Succinate [Toprol Xl 50 mg Tab.sr] 50 mg PO BID 03/03/18 Multivitamin [Multiple Vitamins] 1 each PO DAILY 03/03/18 Simvastatin [Zocor 20 mg Tablet] 20 mg PO QHS 03/03/18 Acetaminophen [Tylenol 325 mg Tablet] 650 mg PO Q4HP PRN #30 tablet 03/10/18 Guaifenesin [Mucinex Sr 600 mg Tablet.sa] 600 mg PO Q12 #10 tablet.sa 03/10/18 Ipratropium/Albuterol Sulfate [Duoneb 3 ml Ampul] 3 ml NEB RTQ4HP PRN #30 vial.neb 03/10/18 Fluticasone/Vilanterol [Breo Ellipta 100-25 Mcg INH] 2 puff IH DAILY 03/17/18 Allergies/Adverse Reactions: procaine HCl [From Novocain] Allergy (Intermediate, Verified 03/11/16 11:06) SIGNIFICANT SWELLING AND BRUISING AT SITE OF INJ aloe polysaccharide [From Novacort] Allergy (Verified 03/11/16 11:06) hydrocortisone acetate [From Novacort] Allergy (Verified 03/11/16 11:06) pramoxine HCl [From Novacort] Allergy (Verified 03/11/16 11:06) morphine [Morphine] Adverse Reaction (Verified 03/11/16 11:06) Review of Systems ROS unobtainable: Due to endotracheal tube Physical Exam Vital Signs: Temp Pulse Resp BP Pulse Ox 98.5 F 16 101/62 99 03/17/18 21:01 03/17/18 21:01 03/17/18 21:01 03/17/18 20:01 Intake & Output 03/16/18 03/17/18 03/18/18 06:59 06:59 06:59 Intake Total 1816 Output Total 700 Balance 1116 Weight 56.699 kg General appearance: PRESENT: no acute distress, thin, well-developed Head exam: PRESENT: atraumatic, normocephalic Eye exam: PRESENT: conjunctiva pink. ABSENT: scleral icterus Ear exam: PRESENT: normal external ear exam Neck exam: ABSENT: carotid bruit, JVD, lymphadenopathy Respiratory exam: PRESENT: clear to auscultation jesus - Anteriorly, decreased breath sounds - At bases, other - Intubated Cardiovascular exam: PRESENT: irregular rhythm Pulses: PRESENT: normal carotid pulses GI/Abdominal exam: PRESENT: normal bowel sounds, soft. ABSENT: tenderness Rectal exam: PRESENT: deferred Gentrourinary exam: PRESENT: indwelling catheter Extremities exam: ABSENT: pedal edema Musculoskeletal exam: PRESENT: other - Decreased muscle mass Neurological exam: PRESENT: other - Sedated Psychiatric exam: PRESENT: other - Sedated Focused psych exam: PRESENT: other - Sedated Skin exam: PRESENT: dry, normal color, warm Results Laboratory Results: 03/17/18 12:20 03/17/18 16:40 03/17/18 03/17/18 03/17/18 12:20 12:20 12:20 WBC 23.3 H RBC 3.27 L Hgb 10.5 L Hct 31.4 L MCV 96 MCH 32.1 MCHC 33.4 RDW 14.3 H Plt Count 340 Seg Neutrophils % Not Reportable Lymphocytes % Not Reportable Monocytes % Not Reportable Eosinophils % Not Reportable Basophils % Not Reportable Absolute Neutrophils Not Reportable Absolute Lymphocytes Not Reportable Absolute Monocytes Not Reportable Absolute Eosinophils Not Reportable Absolute Basophils Not Reportable Carbonic Acid HCO3/H2CO3 Ratio ABG pH ABG pCO2 ABG pO2 ABG HCO3 ABG O2 Saturation ABG Base Excess VBG pH VBG pCO2 VBG HCO3 VBG Base Excess FiO2 Sodium 124.7 L Potassium 6.0 H* Chloride 90 L Carbon Dioxide 24 Anion Gap 11 BUN 22 H Creatinine 0.52 Est GFR ( Amer) > 60 Est GFR (Non-Af Amer) > 60 Glucose 197 H Lactic Acid 5.2 H Calcium 8.4 Total Bilirubin 1.0 AST 37 H ALT 36 Alkaline Phosphatase 79 Total Protein 5.6 L Albumin 3.1 L Urine Color Urine Appearance Urine pH Ur Specific [place] Urine Protein Urine Glucose (UA) Urine Ketones Urine Blood Urine Nitrite Ur Leukocyte Esterase Urine WBC (Auto) Urine RBC (Auto) 12/19/18 12/19/18 12/19/18 12:20 12:20 14:00 WBC RBC Hgb Hct MCV MCH MCHC RDW Plt Count Seg Neutrophils % Lymphocytes % Monocytes % Eosinophils % Basophils % Absolute Neutrophils Absolute Lymphocytes Absolute Monocytes Absolute Eosinophils Absolute Basophils Carbonic Acid 1.54 H HCO3/H2CO3 Ratio 20:1 ABG pH 7.41 ABG pCO2 51.0 H ABG pO2 69.2 L ABG HCO3 31.7 H ABG O2 Saturation 93.8 L ABG Base Excess 6.1 VBG pH 7.18 L* VBG pCO2 67.0 H* VBG HCO3 24.2 VBG Base Excess -5.1 FiO2 60% Sodium Potassium Chloride Carbon Dioxide Anion Gap BUN Creatinine Est GFR ( Amer) Est GFR (Non-Af Amer) Glucose Lactic Acid Calcium Total Bilirubin AST ALT Alkaline Phosphatase Total Protein Albumin Urine Color YELLOW Urine Appearance SLIGHTLY-CLOUDY Urine pH 5.0 Ur Specific [place] 1.023 Urine Protein 30 H Urine Glucose (UA) NEGATIVE Urine Ketones NEGATIVE Urine Blood NEGATIVE Urine Nitrite NEGATIVE Ur Leukocyte Esterase NEGATIVE Urine WBC (Auto) 2 Urine RBC (Auto) 8 03/17/18 03/17/18 16:40 16:40 WBC RBC Hgb Hct MCV MCH MCHC RDW Plt Count Seg Neutrophils % Lymphocytes % Monocytes % Eosinophils % Basophils % Absolute Neutrophils Absolute Lymphocytes Absolute Monocytes Absolute Eosinophils Absolute Basophils Carbonic Acid HCO3/H2CO3 Ratio ABG pH ABG pCO2 ABG pO2 ABG HCO3 ABG O2 Saturation ABG Base Excess VBG pH VBG pCO2 VBG HCO3 VBG Base Excess FiO2 Sodium 126.5 L Potassium 5.2 H Chloride 93 L Carbon Dioxide 27 Anion Gap 7 BUN 23 H Creatinine 0.43 L Est GFR ( Amer) > 60 Est GFR (Non-Af Amer) > 60 Glucose 137 H Lactic Acid 5.1 H Calcium 8.5 Total Bilirubin AST ALT Alkaline Phosphatase Total Protein Albumin Urine Color Urine Appearance Urine pH Ur Specific [place] Urine Protein Urine Glucose (UA) Urine Ketones Urine Blood Urine Nitrite Ur Leukocyte Esterase Urine WBC (Auto) Urine RBC (Auto) 03/17/18 12:20 Troponin I < 0.012 NT-Pro-B Natriuret Pep 6580 H Impressions: Chest X-Ray 03/17/18 12:03 IMPRESSION: 1. Mildly worsened extensive right sided airspace disease with moderate effusion. 2. Intubation with endotracheal tube at midthoracic trachea. Assessment & Plan - Diagnosis (1) Acute respiratory failure with hypoxia Is this a current diagnosis for this admission?: Yes Plan: As noted above the patient was intubated. It appears that the source of her respiratory failure is a pneumonia. Dr. Hurst will be seeing the patient as well. We will initiate vent weaning as soon as clinically indicated. (2) Healthcare-associated pneumonia Is this a current diagnosis for this admission?: Yes Plan: Because of the patient's recent hospitalization it is likely that this is a healthcare acquired pneumonia. The patient will be covered with broad-spectrum antibiotic therapy. This will include cefepime and vancomycin. There is a possibility of Pseudomonas. A sputum culture was not able to be obtained prior to initiation of antibiotic therapy. (3) Lactic acidosis Is this a current diagnosis for this admission?: Yes Plan: The patient will be receiving IV fluids. We will monitor her serum lactic acid. (4) Mediastinal lymphadenopathy Is this a current diagnosis for this admission?: Yes Plan: This is a chronic issue and felt to be the source of her chronic pleural effusions. Evidently she had a bronchoscopy with biopsy that showed no malignancy. She was scheduled for a PET scan tomorrow. Clearly this will be delayed. We will continue to monitor for increased effusion. She does have Pleurx catheter that will make it easy to drain. (5) Atrial fibrillation Qualifiers: Atrial fibrillation type: paroxysmal Qualified Code(s): I48.0 - Paroxysmal atrial fibrillation Is this a current diagnosis for this admission?: Yes Plan: We will continue her current medication regimen. The patient will be monitored on telemetry. - Time Time Spent: Greater than 70 Minutes Medications reviewed and adjusted accordingly: Yes - Inpatient Certification Based on my medical assessment, after consideration of the patient's comorbidities, presenting symptoms, or acuity I expect that the services needed warrant INPATIENT care.: Yes I certify that my determination is in accordance with my understanding of Medicare's requirements for reasonable and necessary INPATIENT services [42 CFR 412.3e].: Yes Medical Necessity: Need For IV Fluids, Need For Continuous Telemetry Monitoring, Need for Nebulizer Therapy and Monitoring of Response, Need for IV Antibiotics, Risk of Complication if Not Cared For in Hospital - Plan Summary Plan Summary: As noted above
[2018-03-17] MEDS: CEFEPIME 2 GM/D5W RTU 2 GM/50 ML RTUPB IV SCH (23:14)
[2018-03-17 23:20] LABS: ANION GAP 5 (5-19); BLOOD UREA NITROGEN 21 mg/dL (7-20); CALCIUM 8.5 mg/dL (8.4-10.2); CARBON DIOXIDE 32 mmol/L (22-30); CHLORIDE 91 mmol/L (98-107); GLUCOSE 89 mg/dL (75-110); POTASSIUM 4.8 mmol/L (3.6-5.0); SODIUM 127.9 mmol/L (137-145)
[2018-03-18] MEDS: IPRATROPIUM/ALBUTEROL 0.5-2.5 MG/3 ML AMPUL NEB SCH ×4 (01:58→19:27)
[2018-03-18] MEDS: MIDAZOLAM HCL 50 MG/100 ML RTUINJ IV PRN ×2 (02:23→16:04)
[2018-03-18 04:30] LABS: ABSOLUTE LYMPHOCYTES (AUTO) 0.8 10^3/uL (0.5-4.7); ABSOLUTE MONOCYTES (AUTO) 0.8 10^3/uL (0.1-1.4); ABSOLUTE NEUT (AUTO) 12.7 10^3/uL (1.7-8.2); HEMATOCRIT 27.8 % (36.0-47.0); HEMOGLOBIN 9.5 g/dL (12.0-15.5); LYMPHOCYTES % (AUTO) 5.8 % (13-45); MEAN CORPUSCULAR HEMOGLOBIN 32.1 pg (27.0-33.4); MEAN CORPUSCULAR HGB CONC 34.2 g/dL (32.0-36.0); MEAN CORPUSCULAR VOLUME 94 fl (80-97); MONOCYTES % (AUTO) 5.5 % (3-13); PLATELET COUNT 185 10^3/uL (150-450); RED BLOOD COUNT 2.96 10^6/uL (3.72-5.28); RED CELL DISTRIBUTION WIDTH 14.7 % (11.5-14.0); SEGMENTED NEUTROPHILS % (AUTO) 88.7 % (42-78); TOTAL CELLS COUNTED % (AUTO) 100 %; WHITE BLOOD COUNT 14.3 10^3/uL (4.0-10.5)
[2018-03-18 04:51] LABS: ANION GAP 5 (5-19); BLOOD UREA NITROGEN 20 mg/dL (7-20); CALCIUM 8.1 mg/dL (8.4-10.2); CARBON DIOXIDE 30 mmol/L (22-30); CHLORIDE 94 mmol/L (98-107); GLUCOSE 72 mg/dL (75-110); POTASSIUM 4.6 mmol/L (3.6-5.0); SODIUM 129.2 mmol/L (137-145)
[2018-03-18] MEDS: VANCOMYCIN HCL 750 MG in DEXTROSE 5%-WATER 250 ML IV SCH ×2 (05:29→17:30)
[2018-03-18] MEDS: LEVOTHYROXINE SODIUM 0.025 MG TABLET NG SCH (05:30)
[2018-03-18 05:51] LABS: ARTERIAL BLOOD BASE EXCESS 2.8 mmol/L; ARTERIAL BLOOD FIO2 30%; ARTERIAL BLOOD H2CO3 1.06 mmol/L (1.05-1.35); ARTERIAL BLOOD HCO3 26.1 mmol/L (20-24); ARTERIAL BLOOD PCO2 35.3 mmHg (35-45); ARTERIAL BLOOD PH 7.49 (7.35-7.45); ARTERIAL BLOOD PO2 63.7 mmHg (80-100); ARTERIAL BLOOD TOTAL CO2 27.2 mmol/L (21-25)
[2018-03-18] MEDS: BUDESONIDE NEB 0.5 MG/2 ML AMPUL NEB SCH ×2 (08:35→19:27)
[2018-03-18] MEDS: CEFEPIME 2 GM/D5W RTU 2 GM/50 ML RTUPB IV SCH ×2 (10:58→21:27)
[2018-03-18] MEDS: PREDNISONE 20 MG TABLET NG SCH (10:59)
[2018-03-18] MEDS: METOPROLOL TARTRATE 50 MG TABLET NG SCH ×2 (10:59→21:26)
[2018-03-18] MEDS: FUROSEMIDE 40 MG TABLET NG SCH (10:59)
[2018-03-18] MEDS: FAMOTIDINE INJ/PF 20 MG/2 ML SDV IV SCH ×2 (10:59→21:28)
[2018-03-18] MEDS: RIVAROXABAN 15 MG TABLET NG SCH ×2 (11:00→16:05)
[2018-03-18 13:04] LABS: APPEARANCE,URINE CLEAR; BILIRUBIN,URINE NEGATIVE (NEGATIVE); COLOR,URINE COLORLESS; GLUCOSE, URINE NEGATIVE (NEGATIVE); KETONES,URINE NEGATIVE (NEGATIVE); LEUKOCYTE ESTERASE,URINE TRACE (NEGATIVE); NITRITE,URINE NEGATIVE (NEGATIVE); PROTEIN,URINE NEGATIVE (NEGATIVE); URINE SPECIFIC GRAVITY 1.004; UROBILINOGEN,URINE NEGATIVE mg/dL (<2.0)
[2018-03-18] MEDS: SPIRONOLACTONE 25 MG TABLET NG SCH (13:52)
--- NOTE | 2018-03-18 15:30 | RADIOLOGY REPORT (SQ) ---
EXAM DESCRIPTION: U/S CHEST COMPLETED DATE/TIME: 03/18/2018 3:18 pm REASON FOR STUDY: Pleural effusion COMPARISON: None. TECHNIQUE: Dynamic and static grayscale images acquired of the posterior chest LIMITATIONS: None. FINDINGS: Moderate left pleural effusion. Small right pleural effusion with septations. IMPRESSION: MODERATE LEFT PLEURAL EFFUSION. TECHNICAL DOCUMENTATION: JOB ID: [id number] [employer]- All Rights Reserved Reading location - IP/workstation name: [facility]
--- NOTE | 2018-03-18 17:44 | PDOC PROGRESS REPORT ---
Subjective Progress Note for:: 03/18/18 Subjective:: Patient remains intubated. Reason For Visit: PNEUMONIA, ACUTE HYPOXIC RESP FAILURE Physical Exam Vital Signs: Temp Pulse Resp BP Pulse Ox 97.9 F 90 19 112/55 L 93 03/18/18 17:01 03/18/18 14:00 03/18/18 17:01 03/18/18 17:01 03/18/18 17:01 Intake & Output 03/17/18 03/18/18 03/19/18 06:59 06:59 06:59 Intake Total 3177 300 Output Total 850 1500 Balance 2327 -1200 Weight 59.6 kg General appearance: PRESENT: no acute distress - Does not appear to be in distress. She remains intubated. Head exam: PRESENT: other - Cachexia Mouth exam: PRESENT: other - Endotracheal tube in place Respiratory exam: PRESENT: rhonchi - Faint. ABSENT: accessory muscle use, prolonged expiratory phas, wheezes Cardiovascular exam: PRESENT: RRR, +S1, +S2 GI/Abdominal exam: PRESENT: normal bowel sounds, soft. ABSENT: tenderness Neurological exam: ABSENT: alert - Sedated Results Laboratory Results: 03/18/18 04:01 03/18/18 04:01 03/17/18 03/17/18 03/17/18 16:40 22:55 22:55 WBC RBC Hgb Hct MCV MCH MCHC RDW Plt Count Seg Neutrophils % Lymphocytes % Monocytes % Eosinophils % Basophils % Absolute Neutrophils Absolute Lymphocytes Absolute Monocytes Absolute Eosinophils Absolute Basophils Carbonic Acid HCO3/H2CO3 Ratio ABG pH ABG pCO2 ABG pO2 ABG HCO3 ABG O2 Saturation ABG Base Excess FiO2 Sodium 126.5 L 127.9 L Potassium 5.2 H 4.8 Chloride 93 L 91 L Carbon Dioxide 27 32 H Anion Gap 7 5 BUN 23 H 21 H Creatinine 0.43 L 0.42 L Est GFR ( Amer) > 60 > 60 Est GFR (Non-Af Amer) > 60 > 60 Glucose 137 H 89 Lactic Acid 4.1 H Calcium 8.5 8.5 Urine Color Urine Appearance Urine pH Ur Specific [place] Urine Protein Urine Glucose (UA) Urine Ketones Urine Blood Urine Nitrite Ur Leukocyte Esterase Urine WBC (Auto) Urine RBC (Auto) 03/18/18 03/18/18 03/18/18 04:01 04:01 05:43 WBC 14.3 H RBC 2.96 L Hgb 9.5 L Hct 27.8 L MCV 94 MCH 32.1 MCHC 34.2 RDW 14.7 H Plt Count 185 Seg Neutrophils % 88.7 H Lymphocytes % 5.8 L Monocytes % 5.5 Eosinophils % 0.0 Basophils % 0.0 Absolute Neutrophils 12.7 H Absolute Lymphocytes 0.8 Absolute Monocytes 0.8 Absolute Eosinophils 0.0 Absolute Basophils 0.0 Carbonic Acid 1.06 HCO3/H2CO3 Ratio 24:1 ABG pH 7.49 H ABG pCO2 35.3 ABG pO2 63.7 L ABG HCO3 26.1 H ABG O2 Saturation 94.0 ABG Base Excess 2.8 FiO2 30% Sodium 129.2 L Potassium 4.6 Chloride 94 L Carbon Dioxide 30 Anion Gap 5 BUN 20 Creatinine 0.50 L Est GFR ( Amer) > 60 Est GFR (Non-Af Amer) > 60 Glucose 72 L Lactic Acid Calcium 8.1 L Urine Color Urine Appearance Urine pH Ur Specific [place] Urine Protein Urine Glucose (UA) Urine Ketones Urine Blood Urine Nitrite Ur Leukocyte Esterase Urine WBC (Auto) Urine RBC (Auto) 03/18/18 12:40 WBC RBC Hgb Hct MCV MCH MCHC RDW Plt Count Seg Neutrophils % Lymphocytes % Monocytes % Eosinophils % Basophils % Absolute Neutrophils Absolute Lymphocytes Absolute Monocytes Absolute Eosinophils Absolute Basophils Carbonic Acid HCO3/H2CO3 Ratio ABG pH ABG pCO2 ABG pO2 ABG HCO3 ABG O2 Saturation ABG Base Excess FiO2 Sodium Potassium Chloride Carbon Dioxide Anion Gap BUN Creatinine Est GFR ( Amer) Est GFR (Non-Af Amer) Glucose Lactic Acid Calcium Urine Color COLORLESS Urine Appearance CLEAR Urine pH 6.0 Ur Specific [place] 1.004 Urine Protein NEGATIVE Urine Glucose (UA) NEGATIVE Urine Ketones NEGATIVE Urine Blood SMALL H Urine Nitrite NEGATIVE Ur Leukocyte Esterase TRACE H Urine WBC (Auto) 17 Urine RBC (Auto) 2 03/17/18 12:20 Troponin I < 0.012 NT-Pro-B Natriuret Pep 6580 H Impressions: Chest X-Ray 03/17/18 12:03 IMPRESSION: 1. Mildly worsened extensive right sided airspace disease with moderate effusion. 2. Intubation with endotracheal tube at midthoracic trachea. Chest Ultrasound 03/18/18 00:00 IMPRESSION: MODERATE LEFT PLEURAL EFFUSION. Assessment & Plan - Diagnosis (1) Acute respiratory failure with hypoxia Is this a current diagnosis for this admission?: Yes Plan: The patient remains intubated. Please also see pulmonology note. Weaning trials per protocol. (2) Healthcare-associated pneumonia Is this a current diagnosis for this admission?: Yes Plan: White blood cell count is down to 14,000. Continue current antibiotics. (3) Lactic acidosis Is this a current diagnosis for this admission?: Yes Plan: Improving. Recheck lactic acid level tomorrow. (4) Mediastinal lymphadenopathy Is this a current diagnosis for this admission?: Yes Plan: Ongoing investigations for this condition. No significant effusion on this admission. (5) Atrial fibrillation Qualifiers: Atrial fibrillation type: paroxysmal Qualified Code(s): I48.0 - Paroxysmal atrial fibrillation Is this a current diagnosis for this admission?: Yes Plan: Continue current medications. (6) Acute cystitis Qualifiers: Hematuria presence: without hematuria Qualified Code(s): N30.00 - Acute cystitis without hematuria Is this a current diagnosis for this admission?: Yes Plan: Urine culture is growing gram-positive cocci in chains. Vancomycin should cover any organism. - Time Time Spent with patient: 25-34 minutes Medications reviewed and adjusted accordingly: Yes
[2018-03-18] MEDS: SIMVASTATIN 40 MG TABLET NG SCH (21:20)
[2018-03-19] MEDS: MIDAZOLAM HCL 50 MG/100 ML RTUINJ IV PRN ×4 (00:18→19:23)
[2018-03-19] MEDS: IPRATROPIUM/ALBUTEROL 0.5-2.5 MG/3 ML AMPUL NEB SCH ×4 (02:27→19:05)
[2018-03-19] MEDS: LEVOTHYROXINE SODIUM 0.025 MG TABLET NG SCH (05:46)
[2018-03-19 05:59] LABS: HEMATOCRIT 31.1 % (36.0-47.0); HEMOGLOBIN 10.4 g/dL (12.0-15.5); MEAN CORPUSCULAR HEMOGLOBIN 31.4 pg (27.0-33.4); MEAN CORPUSCULAR HGB CONC 33.3 g/dL (32.0-36.0); MEAN CORPUSCULAR VOLUME 94 fl (80-97); PLATELET COUNT 195 10^3/uL (150-450); RED CELL DISTRIBUTION WIDTH 14.4 % (11.5-14.0)
[2018-03-19 06:07] LABS: ARTERIAL BLOOD BASE EXCESS 3.1 mmol/L; ARTERIAL BLOOD H2CO3 0.98 mmol/L (1.05-1.35); ARTERIAL BLOOD HCO3 25.7 mmol/L (20-24); ARTERIAL BLOOD O2 SATURATION 95.6 % (94-98); ARTERIAL BLOOD PCO2 32.5 mmHg (35-45); ARTERIAL BLOOD PH 7.52 (7.35-7.45); ARTERIAL BLOOD PO2 69.7 mmHg (80-100); ARTERIAL BLOOD TOTAL CO2 26.7 mmol/L (21-25)
[2018-03-19 06:11] LABS: ARTERIAL BLOOD FIO2 30%
[2018-03-19 06:21] LABS: ABSOLUTE LYMPHOCYTES# (MANUAL) 0.5 10^3/uL (0.5-4.7); ABSOLUTE MONOCYTES # (MANUAL) 0.8 10^3/uL (0.1-1.4); ABSOLUTE NEUTROPHILS# (MANUAL) 13.8 10^3/uL (1.7-8.2); ACANTHOCYTES 2+; ANION GAP 9 (5-19); ANISOCYTOSIS SLIGHT; BASOPHILS % (MANUAL) 0 % (0-2); BLOOD UREA NITROGEN 19 mg/dL (7-20); BURR CELLS SLIGHT; CALCIUM 8.2 mg/dL (8.4-10.2); CARBON DIOXIDE 25 mmol/L (22-30); CHLORIDE 95 mmol/L (98-107); EOSINOPHILS % (MANUAL) 0 % (0-6); GLUCOSE 88 mg/dL (75-110); LYMPHOCYTES % (MANUAL) 2 % (13-45); MONOCYTES % (MANUAL) 5 % (3-13); OVALOCYTES 1+; POIKILOCYTOSIS 2+; POTASSIUM 4.4 mmol/L (3.6-5.0); SCHISTOCYTES SLIGHT; SEGMENTED NEUTROPHILS % (MAN) 92 % (42-78); SODIUM 128.5 mmol/L (137-145); TEAR DROP CELLS SLIGHT; TOTAL CELLS COUNTED 100; TOXIC GRANULATION 1+; TOXIC VACUOLATION PRESENT
[2018-03-19 06:22] LABS: PLATELET COMMENT ADEQUATE
--- NOTE | 2018-03-19 06:33 | RADIOLOGY REPORT (SQ) ---
EXAM DESCRIPTION: XR CHEST 1 VIEW COMPLETED DATE/TME: 03/19/2018 06:00 CLINICAL HISTORY: 82 years Female, pna/resp failure COMPARISON: 2 days prior. NUMBER OF VIEWS/TECHNIQUE: 1/AP FINDINGS: Moderate mixed airspace and interstitial opacities. Bilateral lower thoracic opacity/effusion. Small right lung volume.Adequate appearing endotracheal tube. Likely adequate appearing enteric tube partially obscured. Moderately enlarged cardiac silhouette. No pneumothorax. Stable bony thorax. IMPRESSION: No significant change.
[2018-03-19] MEDS: VANCOMYCIN HCL 750 MG in DEXTROSE 5%-WATER 250 ML IV SCH ×2 (07:08→17:58)
[2018-03-19] MEDS: BUDESONIDE NEB 0.5 MG/2 ML AMPUL NEB SCH ×2 (08:05→19:05)
[2018-03-19] MEDS: RIVAROXABAN 15 MG TABLET NG SCH ×2 (08:53→17:58)
[2018-03-19] MEDS: SPIRONOLACTONE 25 MG TABLET NG SCH (09:00)
[2018-03-19] MEDS: PREDNISONE 20 MG TABLET NG SCH (09:01)
[2018-03-19] MEDS: FAMOTIDINE INJ/PF 20 MG/2 ML SDV IV SCH ×2 (09:01→21:35)
[2018-03-19] MEDS: METOPROLOL TARTRATE 50 MG TABLET NG SCH ×2 (09:01→21:34)
[2018-03-19] MEDS: FUROSEMIDE 40 MG TABLET NG SCH (09:01)
[2018-03-19] MEDS: CEFEPIME 2 GM/D5W RTU 2 GM/50 ML RTUPB IV SCH ×2 (09:02→21:35)
--- NOTE | 2018-03-19 11:45 | PDOC PROGRESS REPORT ---
Subjective Progress Note for:: 03/19/18 Subjective:: Patient is still intubated and sedated. She is not responsive to verbal stimuli. Reason For Visit: PNEUMONIA, ACUTE HYPOXIC RESP FAILURE Physical Exam Vital Signs: Temp Pulse Resp BP Pulse Ox 97.2 F 79 15 141/76 H 97 03/19/18 08:01 03/19/18 10:00 03/19/18 10:00 03/19/18 10:00 03/19/18 10:00 Intake & Output 03/18/18 03/19/18 03/20/18 06:59 06:59 06:59 Intake Total 3177 841 343 Output Total 850 1955 190 Balance 2327 -1114 153 Weight 59.6 kg 59.4 kg General appearance: PRESENT: no acute distress, thin, other - Temporal wasting Head exam: PRESENT: normocephalic Ear exam: PRESENT: normal external ear exam Mouth exam: PRESENT: other - Endotracheal tube in place Respiratory exam: PRESENT: decreased breath sounds - At bases, rales - Fine rales bilateral upper lobes. ABSENT: accessory muscle use Cardiovascular exam: PRESENT: irregular rhythm GI/Abdominal exam: PRESENT: normal bowel sounds, soft, other - Tympanitic. ABSENT: tenderness Musculoskeletal exam: PRESENT: other - Decreased muscle mass Neurological exam: PRESENT: other - Sedated Skin exam: PRESENT: dry, warm Results Laboratory Results: 03/19/18 05:49 03/19/18 05:49 03/18/18 03/19/18 03/19/18 12:40 04:56 05:49 WBC RBC Hgb Hct MCV MCH MCHC RDW Plt Count Seg Neutrophils % Lymphocytes % Monocytes % Eosinophils % Basophils % Absolute Neutrophils Absolute Lymphocytes Absolute Monocytes Absolute Eosinophils Absolute Basophils Carbonic Acid Cancelled HCO3/H2CO3 Ratio Cancelled ABG pH Cancelled ABG pCO2 Cancelled ABG pO2 Cancelled ABG HCO3 Cancelled ABG O2 Saturation Cancelled ABG Base Excess Cancelled FiO2 Cancelled Sodium 128.5 L Potassium 4.4 Chloride 95 L Carbon Dioxide 25 Anion Gap 9 BUN 19 Creatinine 0.41 L Est GFR ( Amer) > 60 Est GFR (Non-Af Amer) > 60 Glucose 88 Lactic Acid Calcium 8.2 L Magnesium 1.9 Urine Color COLORLESS Urine Appearance CLEAR Urine pH 6.0 Ur Specific [place] 1.004 Urine Protein NEGATIVE Urine Glucose (UA) NEGATIVE Urine Ketones NEGATIVE Urine Blood SMALL H Urine Nitrite NEGATIVE Ur Leukocyte Esterase TRACE H Urine WBC (Auto) 17 Urine RBC (Auto) 2 03/19/18 03/19/18 03/19/18 05:49 05:49 05:59 WBC 15.0 H RBC 3.30 L Hgb 10.4 L Hct 31.1 L MCV 94 MCH 31.4 MCHC 33.3 RDW 14.4 H Plt Count 195 Seg Neutrophils % Not Reportable Lymphocytes % Not Reportable Monocytes % Not Reportable Eosinophils % Not Reportable Basophils % Not Reportable Absolute Neutrophils Not Reportable Absolute Lymphocytes Not Reportable Absolute Monocytes Not Reportable Absolute Eosinophils Not Reportable Absolute Basophils Not Reportable Carbonic Acid 0.98 L HCO3/H2CO3 Ratio 26:1 ABG pH 7.52 H ABG pCO2 32.5 L ABG pO2 69.7 L ABG HCO3 25.7 H ABG O2 Saturation 95.6 ABG Base Excess 3.1 FiO2 30% Sodium Potassium Chloride Carbon Dioxide Anion Gap BUN Creatinine Est GFR ( Amer) Est GFR (Non-Af Amer) Glucose Lactic Acid 4.1 H Calcium Magnesium Urine Color Urine Appearance Urine pH Ur Specific [place] Urine Protein Urine Glucose (UA) Urine Ketones Urine Blood Urine Nitrite Ur Leukocyte Esterase Urine WBC (Auto) Urine RBC (Auto) 03/17/18 12:20 Troponin I < 0.012 NT-Pro-B Natriuret Pep 6580 H Impressions: Chest Ultrasound 03/18/18 00:00 IMPRESSION: MODERATE LEFT PLEURAL EFFUSION. Chest X-Ray 03/19/18 06:00 IMPRESSION: No significant change. Assessment & Plan - Diagnosis (1) Acute respiratory failure with hypoxia Is this a current diagnosis for this admission?: Yes Plan: The patient is currently on a pressure support trial. We will continue weaning with a goal of extubation. (2) Healthcare-associated pneumonia Is this a current diagnosis for this admission?: Yes Plan: White blood cell count is down to 15,000 today. Continue current antibiotics but recheck white count tomorrow. Awaiting final identification and sensitivities from cultures. (3) Lactic acidosis Is this a current diagnosis for this admission?: Yes Plan: Still slightly elevated. She is currently on D5 normal saline. Continue to monitor serum chemistries. (4) Mediastinal lymphadenopathy Is this a current diagnosis for this admission?: Yes Plan: Chronic. This is been a source of pleural effusions. Continue to monitor. (5) Atrial fibrillation Qualifiers: Atrial fibrillation type: paroxysmal Qualified Code(s): I48.0 - Paroxysmal atrial fibrillation Is this a current diagnosis for this admission?: Yes Plan: Still in fibrillation but with excellent rate control. (6) Acute cystitis Qualifiers: Hematuria presence: without hematuria Qualified Code(s): N30.00 - Acute cystitis without hematuria Is this a current diagnosis for this admission?: Yes Plan: On vancomycin. Gram-positive cocci noted. Awaiting final identification and sensitivities. - Time Time Spent with patient: 25-34 minutes Medications reviewed and adjusted accordingly: Yes
[2018-03-19 18:35] LABS: VANCOMYCIN,TROUGH 14.5 ug/mL (5.0-20.0)
[2018-03-19] MEDS: SIMVASTATIN 40 MG TABLET NG SCH (21:34)
[2018-03-20] MEDS: MIDAZOLAM HCL 50 MG/100 ML RTUINJ IV PRN ×2 (00:08→07:01)
[2018-03-20] MEDS: IPRATROPIUM/ALBUTEROL 0.5-2.5 MG/3 ML AMPUL NEB SCH ×4 (01:05→20:21)
[2018-03-20 04:14] LABS: HEMATOCRIT 28.5 % (36.0-47.0); HEMOGLOBIN 9.9 g/dL (12.0-15.5); MEAN CORPUSCULAR HEMOGLOBIN 32.3 pg (27.0-33.4); MEAN CORPUSCULAR HGB CONC 34.7 g/dL (32.0-36.0); MEAN CORPUSCULAR VOLUME 93 fl (80-97); PLATELET COUNT 157 10^3/uL (150-450); RED BLOOD COUNT 3.06 10^6/uL (3.72-5.28); RED CELL DISTRIBUTION WIDTH 14.3 % (11.5-14.0); WHITE BLOOD COUNT 12.5 10^3/uL (4.0-10.5)
[2018-03-20 04:31] LABS: ANION GAP 8 (5-19); BLOOD UREA NITROGEN 19 mg/dL (7-20); CALCIUM 7.9 mg/dL (8.4-10.2); CARBON DIOXIDE 25 mmol/L (22-30); CHLORIDE 94 mmol/L (98-107); GLUCOSE 110 mg/dL (75-110); POTASSIUM 3.5 mmol/L (3.6-5.0); SODIUM 127.2 mmol/L (137-145)
[2018-03-20 04:34] LABS: ABSOLUTE LYMPHOCYTES# (MANUAL) 0.6 10^3/uL (0.5-4.7); ABSOLUTE MONOCYTES # (MANUAL) 0.4 10^3/uL (0.1-1.4); ABSOLUTE NEUTROPHILS# (MANUAL) 11.5 10^3/uL (1.7-8.2); BASOPHILS % (MANUAL) 0 % (0-2); EOSINOPHILS % (MANUAL) 0 % (0-6); LYMPHOCYTES % (MANUAL) 5 % (13-45); MONOCYTES % (MANUAL) 3 % (3-13); SEGMENTED NEUTROPHILS % (MAN) 92 % (42-78); TOTAL CELLS COUNTED 100
[2018-03-20 04:35] LABS: ANISOCYTOSIS SLIGHT; PLATELET COMMENT ADEQUATE; POLYCHROMASIA 1+
[2018-03-20] MEDS: VANCOMYCIN HCL 750 MG in DEXTROSE 5%-WATER 250 ML IV SCH ×2 (06:32→18:32)
[2018-03-20] MEDS: LEVOTHYROXINE SODIUM 0.025 MG TABLET NG SCH (06:32)
--- NOTE | 2018-03-20 06:46 | RADIOLOGY REPORT (SQ) ---
EXAM DESCRIPTION: XR CHEST 1 VIEW COMPLETED DATE/TME: 03/20/2018 06:00 CLINICAL HISTORY: Respiratory Distress. 82 years Female, resp failure COMPARISON: One day prior. NUMBER OF VIEWS/TECHNIQUE: 1/AP FINDINGS: Bilateral lower thoracic opacity/effusion. Moderate mixed airspace and interstitial opacities. Moderate suprahilar opacity. Tip of an endotracheal tube is 2 cm from the carlos; consider 3 cm retraction of the endotracheal tube.Likely adequate appearing enteric tube partially obscured. Mildly enlarged cardiac silhouette. No pneumothorax. Stable bony thorax. IMPRESSION: No significant change.
[2018-03-20] MEDS: DEXTROSE 5%-NORMAL SALINE 1,000 ML IV PRN (07:02)
[2018-03-20 07:05] LABS: ARTERIAL BLOOD BASE EXCESS 0.7 mmol/L; ARTERIAL BLOOD H2CO3 0.79 mmol/L (1.05-1.35); ARTERIAL BLOOD HCO3 22.3 mmol/L (20-24); ARTERIAL BLOOD O2 SATURATION 96.6 % (94-98); ARTERIAL BLOOD PCO2 26.4 mmHg (35-45); ARTERIAL BLOOD PH 7.55 (7.35-7.45); ARTERIAL BLOOD PO2 73.8 mmHg (80-100); ARTERIAL BLOOD TOTAL CO2 23.1 mmol/L (21-25)
[2018-03-20 07:07] LABS: ARTERIAL BLOOD FIO2 30%
[2018-03-20] MEDS: BUDESONIDE NEB 0.5 MG/2 ML AMPUL NEB SCH ×2 (08:48→20:21)
[2018-03-20] MEDS: CEFEPIME 2 GM/D5W RTU 2 GM/50 ML RTUPB IV SCH ×2 (09:52→21:32)
[2018-03-20] MEDS: FAMOTIDINE INJ/PF 20 MG/2 ML SDV IV SCH ×2 (09:52→21:33)
[2018-03-20] MEDS: PREDNISONE 20 MG TABLET NG SCH (09:53)
[2018-03-20] MEDS: FUROSEMIDE 40 MG TABLET NG SCH (09:53)
[2018-03-20] MEDS: RIVAROXABAN 15 MG TABLET NG SCH ×2 (09:53→18:32)
[2018-03-20] MEDS: METOPROLOL TARTRATE 50 MG TABLET NG SCH ×2 (09:53→21:31)
[2018-03-20] MEDS: SPIRONOLACTONE 25 MG TABLET NG SCH (09:54)
--- NOTE | 2018-03-20 11:16 | PDOC PROGRESS REPORT ---
Subjective Progress Note for:: 03/20/18 Subjective:: Patient is unresponsive to verbal stimuli today. Reason For Visit: PNEUMONIA, ACUTE HYPOXIC RESP FAILURE Physical Exam Vital Signs: Temp Pulse Resp BP Pulse Ox 97.7 F 114 H 21 H 109/41 L 94 03/20/18 10:00 03/20/18 10:00 03/20/18 10:00 03/20/18 10:00 03/20/18 10:00 Intake & Output 03/19/18 03/20/18 03/21/18 06:59 06:59 06:59 Intake Total 841 1668 264 Output Total 3642 6339 180 Balance -1114 -81 84 Weight 59.4 kg 60.2 kg General appearance: PRESENT: no acute distress - Appears comfortable on the ventilator Mouth exam: PRESENT: other - Endotracheal tube in place Respiratory exam: PRESENT: clear to auscultation jesus - Anteriorly, symmetrical. ABSENT: stridor, wheezes Cardiovascular exam: PRESENT: RRR, +S1, +S2 GI/Abdominal exam: PRESENT: normal bowel sounds, soft. ABSENT: distended, tenderness Extremities exam: ABSENT: pedal edema Musculoskeletal exam: PRESENT: other - Decreased muscle mass Neurological exam: PRESENT: other - Unresponsive to verbal stimuli Results Laboratory Results: 03/20/18 03:57 03/20/18 03:57 03/20/18 03/20/18 03/20/18 03:57 03:57 06:52 WBC 12.5 H RBC 3.06 L Hgb 9.9 L Hct 28.5 L MCV 93 MCH 32.3 MCHC 34.7 RDW 14.3 H Plt Count 157 Seg Neutrophils % Not Reportable Lymphocytes % Not Reportable Monocytes % Not Reportable Eosinophils % Not Reportable Basophils % Not Reportable Absolute Neutrophils Not Reportable Absolute Lymphocytes Not Reportable Absolute Monocytes Not Reportable Absolute Eosinophils Not Reportable Absolute Basophils Not Reportable Carbonic Acid 0.79 L HCO3/H2CO3 Ratio 28:1 ABG pH 7.55 H ABG pCO2 26.4 L ABG pO2 73.8 L ABG HCO3 22.3 ABG O2 Saturation 96.6 ABG Base Excess 0.7 FiO2 30% Sodium 127.2 L Potassium 3.5 L Chloride 94 L Carbon Dioxide 25 Anion Gap 8 BUN 19 Creatinine 0.47 L Est GFR ( Amer) > 60 Est GFR (Non-Af Amer) > 60 Glucose 110 Calcium 7.9 L Magnesium 1.8 03/17/18 12:20 Catheterized Urine Urine Culture - Final Enterococcus Faecalis(Group D) 03/17/18 12:20 Troponin I < 0.012 NT-Pro-B Natriuret Pep 6580 H Impressions: Chest Ultrasound 03/18/18 00:00 IMPRESSION: MODERATE LEFT PLEURAL EFFUSION. Chest X-Ray 03/20/18 06:00 IMPRESSION: No significant change. Assessment & Plan - Diagnosis (1) Acute respiratory failure with hypoxia Is this a current diagnosis for this admission?: Yes Plan: Remains ventilated. She will have a pressure support trial this morning. If she tolerates it we will repeat it this afternoon. (2) Healthcare-associated pneumonia Is this a current diagnosis for this admission?: Yes Plan: Sputum culture showed reduced normal emrlyn. No predominance of an organism. Continue antibiotic therapy. (3) Lactic acidosis Is this a current diagnosis for this admission?: Yes Plan: Most recent lactic acid level was 4.1. Repeat lactic acid level tomorrow. (4) Mediastinal lymphadenopathy Is this a current diagnosis for this admission?: Yes Plan: Outpatient workup in progress. The patient is due for a PET scan as the next diagnostic step. This hospitalization and delayed scan. (5) Atrial fibrillation Qualifiers: Atrial fibrillation type: paroxysmal Qualified Code(s): I48.0 - Paroxysmal atrial fibrillation Is this a current diagnosis for this admission?: Yes Plan: Continue current medications and anticoagulation (6) Acute cystitis Qualifiers: Hematuria presence: without hematuria Qualified Code(s): N30.00 - Acute cystitis without hematuria Is this a current diagnosis for this admission?: Yes Plan: Gram-positive cocci present. Awaiting final identification and sensitivities. - Time Time Spent with patient: 25-34 minutes Medications reviewed and adjusted accordingly: Yes
[2018-03-20] MEDS: SIMVASTATIN 40 MG TABLET NG SCH (21:32)
[2018-03-21] MEDS: IPRATROPIUM/ALBUTEROL 0.5-2.5 MG/3 ML AMPUL NEB SCH ×4 (02:45→20:55)
[2018-03-21 04:13] LABS: HEMATOCRIT 29.7 % (36.0-47.0); HEMOGLOBIN 10.2 g/dL (12.0-15.5); MEAN CORPUSCULAR HGB CONC 34.3 g/dL (32.0-36.0); MEAN CORPUSCULAR VOLUME 93 fl (80-97); PLATELET COUNT 157 10^3/uL (150-450); RED BLOOD COUNT 3.17 10^6/uL (3.72-5.28); RED CELL DISTRIBUTION WIDTH 14.2 % (11.5-14.0)
[2018-03-21 04:34] LABS: ABSOLUTE LYMPHOCYTES# (MANUAL) 0.4 10^3/uL (0.5-4.7); ABSOLUTE MONOCYTES # (MANUAL) 0.6 10^3/uL (0.1-1.4); ANION GAP 11 (5-19); BASOPHILS % (MANUAL) 0 % (0-2); BLOOD UREA NITROGEN 21 mg/dL (7-20); CALCIUM 8.1 mg/dL (8.4-10.2); CARBON DIOXIDE 25 mmol/L (22-30); CHLORIDE 92 mmol/L (98-107); EOSINOPHILS % (MANUAL) 0 % (0-6); GLUCOSE 115 mg/dL (75-110); LYMPHOCYTES % (MANUAL) 3 % (13-45); MONOCYTES % (MANUAL) 4 % (3-13); PLATELET COMMENT ADEQUATE; POTASSIUM 3.3 mmol/L (3.6-5.0); RBC MORPHOLOGY COMMENT NORMO-CYTIC/CHROMIC; SEGMENTED NEUTROPHILS % (MAN) 93 % (42-78); SODIUM 127.7 mmol/L (137-145); TOTAL CELLS COUNTED 100
[2018-03-21 04:40] LABS: ARTERIAL BLOOD BASE EXCESS 1.5 mmol/L; ARTERIAL BLOOD H2CO3 0.89 mmol/L (1.05-1.35); ARTERIAL BLOOD HCO3 23.8 mmol/L (20-24); ARTERIAL BLOOD PCO2 29.5 mmHg (35-45); ARTERIAL BLOOD PH 7.52 (7.35-7.45); ARTERIAL BLOOD PO2 60.8 mmHg (80-100); ARTERIAL BLOOD TOTAL CO2 24.7 mmol/L (21-25)
[2018-03-21 04:43] LABS: ARTERIAL BLOOD FIO2 21%
[2018-03-21] MEDS ORDERED: POTASSIUM CHLORIDE 10 MEQ CAPSULE.ER PO ONE (06:00)
[2018-03-21] MEDS: MIDAZOLAM HCL 50 MG/100 ML RTUINJ IV PRN ×2 (06:43→21:37)
[2018-03-21] MEDS: VANCOMYCIN HCL 750 MG in DEXTROSE 5%-WATER 250 ML IV SCH ×2 (06:44→17:03)
[2018-03-21] MEDS: LEVOTHYROXINE SODIUM 0.025 MG TABLET NG SCH (06:44)
--- NOTE | 2018-03-21 06:46 | RADIOLOGY REPORT (SQ) ---
EXAM DESCRIPTION: XR CHEST 1 VIEW COMPLETED DATE/TME: 03/21/2018 06:00 CLINICAL HISTORY: Respiratory Distress. 82 years Female, pna/resp failure COMPARISON: One day prior. NUMBER OF VIEWS/TECHNIQUE: 1/AP FINDINGS: Bilateral lower thoracic opacity/effusion. Large right perihilar opacity. Small aerated right lung volume. Mild interstitial markings.Adequate appearing endotracheal tube. Likely adequate appearing enteric tube partially obscured. Mildly enlarged cardiac silhouette. No pneumothorax. Stable bony thorax. IMPRESSION: No significant change.
[2018-03-21] MEDS: BUDESONIDE NEB 0.5 MG/2 ML AMPUL NEB SCH ×2 (08:06→20:55)
[2018-03-21] MEDS: RIVAROXABAN 15 MG TABLET NG SCH ×2 (08:55→17:03)
[2018-03-21] MEDS ORDERED: POTASSIUM CHLORIDE 20 MEQ/15 ML UDCUP ONE (08:56)
[2018-03-21] MEDS: FUROSEMIDE 40 MG TABLET NG SCH (08:59)
[2018-03-21] MEDS: PREDNISONE 20 MG TABLET NG SCH (08:59)
[2018-03-21] MEDS: SPIRONOLACTONE 25 MG TABLET NG SCH (08:59)
[2018-03-21] MEDS: METOPROLOL TARTRATE 50 MG TABLET NG SCH ×2 (08:59→23:37)
[2018-03-21] MEDS: FAMOTIDINE INJ/PF 20 MG/2 ML SDV IV SCH ×2 (09:00→23:38)
[2018-03-21] MEDS: CEFEPIME 2 GM/D5W RTU 2 GM/50 ML RTUPB IV SCH ×2 (09:00→23:40)
[2018-03-21] MEDS ORDERED: POTASSIUM CHLORIDE 20 MEQ/15 ML UDCUP NG ONE ×2 (09:30→15:57)
--- NOTE | 2018-03-21 16:03 | PDOC PROGRESS REPORT ---
Subjective Progress Note for:: 03/21/18 Subjective:: The patient is slightly restless. She is on pressure support. She has reasonable respiratory rate with good pulse oxygenation. Reason For Visit: PNEUMONIA, ACUTE HYPOXIC RESP FAILURE Physical Exam Vital Signs: Temp Pulse Resp BP Pulse Ox 97.7 F 85 16 147/65 H 92 03/21/18 11:03 03/21/18 14:12 03/21/18 14:12 03/21/18 11:03 03/21/18 14:12 Intake & Output 03/20/18 03/21/18 03/22/18 06:59 06:59 06:59 Intake Total 1668 1465 1007 Output Total 1749 2270 325 Balance -81 -805 682 Weight 60.2 kg 59.3 kg General appearance: PRESENT: no acute distress, thin - Frail Head exam: PRESENT: other - Temporal wasting Respiratory exam: PRESENT: decreased breath sounds - Right base. ABSENT: wheezes Cardiovascular exam: PRESENT: RRR, +S1, +S2 GI/Abdominal exam: PRESENT: normal bowel sounds, soft. ABSENT: distended, tenderness Neurological exam: PRESENT: other - Medicated on the ventilator Psychiatric exam: PRESENT: flat affect Skin exam: PRESENT: pallor Results Laboratory Results: 03/21/18 03:55 03/21/18 03:55 03/21/18 03/21/18 03/21/18 03:55 03:55 03:55 WBC 14.0 H RBC 3.17 L Hgb 10.2 L Hct 29.7 L MCV 93 MCH 32.0 MCHC 34.3 RDW 14.2 H Plt Count 157 Seg Neutrophils % Not Reportable Lymphocytes % Not Reportable Monocytes % Not Reportable Eosinophils % Not Reportable Basophils % Not Reportable Absolute Neutrophils Not Reportable Absolute Lymphocytes Not Reportable Absolute Monocytes Not Reportable Absolute Eosinophils Not Reportable Absolute Basophils Not Reportable Carbonic Acid HCO3/H2CO3 Ratio ABG pH ABG pCO2 ABG pO2 ABG HCO3 ABG O2 Saturation ABG Base Excess FiO2 Sodium 127.7 L Potassium 3.3 L Chloride 92 L Carbon Dioxide 25 Anion Gap 11 BUN 21 H Creatinine 0.50 L Est GFR ( Amer) > 60 Est GFR (Non-Af Amer) > 60 Glucose 115 H Lactic Acid 4.9 H Calcium 8.1 L Magnesium 1.8 03/21/18 04:25 WBC RBC Hgb Hct MCV MCH MCHC RDW Plt Count Seg Neutrophils % Lymphocytes % Monocytes % Eosinophils % Basophils % Absolute Neutrophils Absolute Lymphocytes Absolute Monocytes Absolute Eosinophils Absolute Basophils Carbonic Acid 0.89 L HCO3/H2CO3 Ratio 26:1 ABG pH 7.52 H ABG pCO2 29.5 L ABG pO2 60.8 L ABG HCO3 23.8 ABG O2 Saturation 94.0 ABG Base Excess 1.5 FiO2 21% Sodium Potassium Chloride Carbon Dioxide Anion Gap BUN Creatinine Est GFR ( Amer) Est GFR (Non-Af Amer) Glucose Lactic Acid Calcium Magnesium 03/18/18 12:40 Catheterized Urine Urine Culture - Final Yeast, Not Rosa M Albicans Mixed Urogenital Nahomy 03/18/18 07:45 Sputum Gram Stain - Final 03/18/18 07:45 Sputum Sputum Culture - Final Reduced Normal Nahomy 03/17/18 12:20 Troponin I < 0.012 NT-Pro-B Natriuret Pep 6580 H Impressions: Chest Ultrasound 03/18/18 00:00 IMPRESSION: MODERATE LEFT PLEURAL EFFUSION. Chest X-Ray 03/21/18 06:00 IMPRESSION: No significant change. Assessment & Plan - Diagnosis (1) Acute respiratory failure with hypoxia Is this a current diagnosis for this admission?: Yes Plan: We will trial the patient on pressure support today. We will rest her tonight. If she does well then we will consider extubation in the morning. (2) Healthcare-associated pneumonia Is this a current diagnosis for this admission?: Yes Plan: Complete antibiotic therapy as ordered. (3) Lactic acidosis Is this a current diagnosis for this admission?: Yes Plan: Continue IV fluid as ordered (4) Mediastinal lymphadenopathy Is this a current diagnosis for this admission?: Yes Plan: It is difficult to know how much of a part this is playing. The family reports that the results of the last bronchoscopy were negative for malignancy. I will try to get a copy of the actual bronchoscopy report. (5) Atrial fibrillation Qualifiers: Atrial fibrillation type: paroxysmal Qualified Code(s): I48.0 - Paroxysmal atrial fibrillation Is this a current diagnosis for this admission?: Yes Plan: Good rate control. She sometimes gets tachycardic but I believe that is from the endotracheal tube. (6) Acute cystitis Qualifiers: Hematuria presence: without hematuria Qualified Code(s): N30.00 - Acute cystitis without hematuria Is this a current diagnosis for this admission?: Yes Plan: Enterococcus faecalis. Complete current antibiotic regimen. - Time Time Spent with patient: 25-34 minutes Medications reviewed and adjusted accordingly: Yes
[2018-03-21] MEDS: DEXTROSE 5%-NORMAL SALINE 1,000 ML IV PRN (17:03)
[2018-03-21] MEDS: GUAIFENESIN SYRP 200 MG/10 ML UDC NG PRN (23:37)
[2018-03-21] MEDS: SIMVASTATIN 40 MG TABLET NG SCH (23:38)
[2018-03-22] MEDS: IPRATROPIUM/ALBUTEROL 0.5-2.5 MG/3 ML AMPUL NEB SCH ×4 (03:24→21:15)
[2018-03-22] MEDS: MIDAZOLAM HCL 50 MG/100 ML RTUINJ IV PRN (04:01)
[2018-03-22 06:39] LABS: ABSOLUTE LYMPHOCYTES (AUTO) 0.8 10^3/uL (0.5-4.7); ABSOLUTE MONOCYTES (AUTO) 0.5 10^3/uL (0.1-1.4); ABSOLUTE NEUT (AUTO) 12.6 10^3/uL (1.7-8.2); BASOPHILS % (AUTO) 0.1 % (0-2); EOSINOPHILS % (AUTO) 0.3 % (0-6); HEMATOCRIT 30.3 % (36.0-47.0); HEMOGLOBIN 10.4 g/dL (12.0-15.5); LYMPHOCYTES % (AUTO) 5.6 % (13-45); MEAN CORPUSCULAR HEMOGLOBIN 32.1 pg (27.0-33.4); MEAN CORPUSCULAR HGB CONC 34.4 g/dL (32.0-36.0); MEAN CORPUSCULAR VOLUME 93 fl (80-97); MONOCYTES % (AUTO) 3.6 % (3-13); PLATELET COUNT 150 10^3/uL (150-450); RED BLOOD COUNT 3.25 10^6/uL (3.72-5.28); RED CELL DISTRIBUTION WIDTH 14.8 % (11.5-14.0); SEGMENTED NEUTROPHILS % (AUTO) 90.4 % (42-78); TOTAL CELLS COUNTED % (AUTO) 100 %
[2018-03-22] MEDS: GUAIFENESIN SYRP 200 MG/10 ML UDC NG PRN (06:40)
[2018-03-22] MEDS: VANCOMYCIN HCL 750 MG in DEXTROSE 5%-WATER 250 ML IV SCH ×2 (06:40→18:20)
[2018-03-22] MEDS: LEVOTHYROXINE SODIUM 0.025 MG TABLET NG SCH (06:40)
[2018-03-22 06:46] LABS: INTERNATIONAL RATION (INR) 1.82
[2018-03-22 06:47] LABS: PARTIAL THROMBOPLASTIN TIME 37.1 SEC (23.5-35.8)
[2018-03-22 06:58] LABS: ALBUMIN 2.6 g/dL (3.5-5.0); ANION GAP 10 (5-19); BLOOD UREA NITROGEN 19 mg/dL (7-20); CALCIUM 8.5 mg/dL (8.4-10.2); CARBON DIOXIDE 25 mmol/L (22-30); CHLORIDE 93 mmol/L (98-107); GLUCOSE 92 mg/dL (75-110); POTASSIUM 3.5 mmol/L (3.6-5.0); SODIUM 127.5 mmol/L (137-145); TOTAL PROTEIN 4.8 g/dL (6.3-8.2)
[2018-03-22 06:59] LABS: ALANINE AMINOTRANSFERASE 27 U/L (9-52); ALKALINE PHOSPHATASE 69 U/L (38-126); ASPARTATE AMINO TRANSFERASE 26 U/L (14-36); BILIRUBIN,DIRECT 0.3 mg/dL (0.0-0.4); BILIRUBIN,TOTAL 0.8 mg/dL (0.2-1.3)
[2018-03-22 07:00] LABS: ARTERIAL BLOOD FIO2 21%; ARTERIAL BLOOD H2CO3 0.79 mmol/L (1.05-1.35); ARTERIAL BLOOD HCO3 23.3 mmol/L (20-24); ARTERIAL BLOOD O2 SATURATION 93.9 % (94-98); ARTERIAL BLOOD PCO2 26.1 mmHg (35-45); ARTERIAL BLOOD PH 7.57 (7.35-7.45); ARTERIAL BLOOD PO2 57.7 mmHg (80-100); ARTERIAL BLOOD TOTAL CO2 24.1 mmol/L (21-25)
--- NOTE | 2018-03-22 07:06 | RADIOLOGY REPORT (SQ) ---
EXAM DESCRIPTION: XR CHEST 1 VIEW COMPLETED DATE/TME: 03/22/2018 06:00 CLINICAL HISTORY: Respiratory Distress. 82 years Female, resp failure COMPARISON: One day prior. NUMBER OF VIEWS/TECHNIQUE: 1/AP FINDINGS: Moderate patchy opacity-effusion of bilateral lower lung palmer, larger right perihilar opacity, mild rightward cardiac shift/rotation. Adequate appearing endotracheal tube. Likely adequate appearing enteric tube partially obscured. Moderately enlarged cardiac silhouette. No pneumothorax. Stable bony thorax. IMPRESSION: No significant change.
[2018-03-22] MEDS: DEXTROSE 5%-NORMAL SALINE 1,000 ML IV PRN (08:05)
[2018-03-22] MEDS: RIVAROXABAN 15 MG TABLET NG SCH ×2 (08:09→18:05)
[2018-03-22] MEDS: BUDESONIDE NEB 0.5 MG/2 ML AMPUL NEB SCH ×2 (08:29→21:15)
[2018-03-22] MEDS ORDERED: ACETAMINOPHEN SOLN 325 MG/10.15 ML UDCUP NG PRN (08:46)
[2018-03-22] MEDS ORDERED: DEXAMETHASONE SOD PHOSPHATE INJ 4 MG/1 ML VIAL IV ONE (10:00)
[2018-03-22] MEDS ORDERED: FUROSEMIDE 40 MG TABLET NG SCH (10:00)
[2018-03-22] MEDS: METOPROLOL TARTRATE 50 MG TABLET NG SCH ×2 (10:07→21:57)
[2018-03-22] MEDS: FAMOTIDINE INJ/PF 20 MG/2 ML SDV IV SCH ×2 (10:07→21:58)
[2018-03-22] MEDS: POTASSIUM CHLORIDE 20 MEQ/15 ML UDCUP NG SCH (10:07)
[2018-03-22] MEDS: CEFEPIME 2 GM/D5W RTU 2 GM/50 ML RTUPB IV SCH ×2 (10:07→22:02)
[2018-03-22] MEDS: FUROSEMIDE 20 MG TABLET NG SCH (10:08)
[2018-03-22] MEDS: PREDNISONE 20 MG TABLET NG SCH (10:08)
[2018-03-22] MEDS: SPIRONOLACTONE 25 MG TABLET NG SCH (10:10)
--- NOTE | 2018-03-22 19:33 | PDOC PROGRESS REPORT ---
Subjective Progress Note for:: 03/22/18 Subjective:: The patient is resting on the ventilator. She is actually on pressure support. She has been doing well. Reason For Visit: PNEUMONIA, ACUTE HYPOXIC RESP FAILURE Physical Exam Vital Signs: Temp Pulse Resp BP Pulse Ox 97.5 F 106 H 27 H 156/90 H 99 03/22/18 18:00 03/22/18 14:38 03/22/18 15:04 03/22/18 15:04 03/22/18 15:04 Intake & Output 03/21/18 03/22/18 03/23/18 06:59 06:59 06:59 Intake Total 1465 2378 1008 Output Total 2270 3125 1150 Balance -805 -747 -142 Weight 59.3 kg 58.6 kg General appearance: PRESENT: no acute distress, thin - Very frail Head exam: PRESENT: atraumatic, normocephalic Mouth exam: PRESENT: other - Endotracheal tube in place Neck exam: ABSENT: carotid bruit, lymphadenopathy Respiratory exam: PRESENT: clear to auscultation jesus, decreased breath sounds - Right base, symmetrical. ABSENT: rales, rhonchi, wheezes Cardiovascular exam: PRESENT: RRR, +S1, +S2 GI/Abdominal exam: PRESENT: normal bowel sounds, soft. ABSENT: distended, tenderness Neurological exam: PRESENT: other - Sedated Psychiatric exam: PRESENT: other - Sedated Focused psych exam: PRESENT: other - Sedated Results Laboratory Results: 03/22/18 06:29 03/22/18 06:29 03/22/18 03/22/18 03/22/18 06:29 06:29 06:29 WBC 14.0 H RBC 3.25 L Hgb 10.4 L Hct 30.3 L MCV 93 MCH 32.1 MCHC 34.4 RDW 14.8 H Plt Count 150 Seg Neutrophils % 90.4 H Lymphocytes % 5.6 L Monocytes % 3.6 Eosinophils % 0.3 Basophils % 0.1 Absolute Neutrophils 12.6 H Absolute Lymphocytes 0.8 Absolute Monocytes 0.5 Absolute Eosinophils 0.0 Absolute Basophils 0.0 Carbonic Acid HCO3/H2CO3 Ratio ABG pH ABG pCO2 ABG pO2 ABG HCO3 ABG O2 Saturation ABG Base Excess FiO2 Sodium 127.5 L Potassium 3.5 L Chloride 93 L Carbon Dioxide 25 Anion Gap 10 BUN 19 Creatinine 0.48 L Est GFR ( Amer) > 60 Est GFR (Non-Af Amer) > 60 Glucose 92 Lactic Acid 4.6 H Calcium 8.5 Magnesium 1.8 Total Bilirubin 0.8 AST 26 ALT 27 Alkaline Phosphatase 69 Total Protein 4.8 L Albumin 2.6 L 03/22/18 06:45 WBC RBC Hgb Hct MCV MCH MCHC RDW Plt Count Seg Neutrophils % Lymphocytes % Monocytes % Eosinophils % Basophils % Absolute Neutrophils Absolute Lymphocytes Absolute Monocytes Absolute Eosinophils Absolute Basophils Carbonic Acid 0.79 L HCO3/H2CO3 Ratio 29:1 ABG pH 7.57 H ABG pCO2 26.1 L ABG pO2 57.7 L ABG HCO3 23.3 ABG O2 Saturation 93.9 L ABG Base Excess 2.0 FiO2 21% Sodium Potassium Chloride Carbon Dioxide Anion Gap BUN Creatinine Est GFR ( Amer) Est GFR (Non-Af Amer) Glucose Lactic Acid Calcium Magnesium Total Bilirubin AST ALT Alkaline Phosphatase Total Protein Albumin 03/17/18 14:31 Blood Blood Culture - Final NO GROWTH IN 5 DAYS 03/17/18 12:20 Blood Blood Culture - Final NO GROWTH IN 5 DAYS 03/17/18 12:20 Troponin I < 0.012 NT-Pro-B Natriuret Pep 6580 H Impressions: Chest Ultrasound 03/18/18 00:00 IMPRESSION: MODERATE LEFT PLEURAL EFFUSION. Chest X-Ray 03/22/18 06:00 IMPRESSION: No significant change. Assessment & Plan - Diagnosis (1) Acute respiratory failure with hypoxia Is this a current diagnosis for this admission?: Yes Plan: The patient has been doing well on pressure support. After discussion with Dr. Hurst and the family it was decided to trial extubation. If needed she can go on BiPAP. She seems stable enough with reasonable respiratory effort and hopefully this will not need to occur. (2) Healthcare-associated pneumonia Is this a current diagnosis for this admission?: Yes Plan: Continue current antibiotic regimen as ordered (3) Lactic acidosis Is this a current diagnosis for this admission?: Yes Plan: Still with elevated lactic acid level. The patient has been on IV fluids. We will recheck level tomorrow and if still elevated we will need to change our treatment strategy. (4) Mediastinal lymphadenopathy Is this a current diagnosis for this admission?: Yes Plan: After discharge the patient will likely get a PET scan. There was talk of a mediastinum anoscopy. After this episode is unclear if the risk outweighs the benefit. That will be deferred to her thoracic surgeon. (5) Atrial fibrillation Qualifiers: Atrial fibrillation type: paroxysmal Qualified Code(s): I48.0 - Paroxysmal atrial fibrillation Is this a current diagnosis for this admission?: Yes Plan: Rate has been stable and she is on long-term anticoagulation. Her blood pressure was slightly elevated. It is difficult to know if this is from her extubation with regard to pain or not. I will add 5 mg of lisinopril twice daily and monitor. Adjust medications as indicated. (6) Acute cystitis Qualifiers: Hematuria presence: without hematuria Qualified Code(s): N30.00 - Acute cystitis without hematuria Is this a current diagnosis for this admission?: Yes Plan: Complete antibiotic therapy as ordered. - Time Time Spent with patient: 15-24 minutes Medications reviewed and adjusted accordingly: Yes
[2018-03-22] MEDS ORDERED: BUDESONIDE NEB 0.5 MG/2 ML AMPUL NEB ONE (21:14)
[2018-03-22] MEDS: LISINOPRIL 5 MG TABLET PO SCH (21:59)
[2018-03-22] MEDS: SIMVASTATIN 40 MG TABLET NG SCH (22:00)
[2018-03-23] MEDS: IPRATROPIUM/ALBUTEROL 0.5-2.5 MG/3 ML AMPUL NEB SCH ×4 (01:30→20:06)
[2018-03-23 04:34] LABS: HEMATOCRIT 35.8 % (36.0-47.0); MEAN CORPUSCULAR HEMOGLOBIN 31.6 pg (27.0-33.4); MEAN CORPUSCULAR HGB CONC 33.6 g/dL (32.0-36.0); MEAN CORPUSCULAR VOLUME 94 fl (80-97); PLATELET COUNT 192 10^3/uL (150-450); RED BLOOD COUNT 3.81 10^6/uL (3.72-5.28); RED CELL DISTRIBUTION WIDTH 14.7 % (11.5-14.0); WHITE BLOOD COUNT 19.1 10^3/uL (4.0-10.5)
[2018-03-23 04:52] LABS: ABSOLUTE LYMPHOCYTES# (MANUAL) 1.1 10^3/uL (0.5-4.7); ABSOLUTE MONOCYTES # (MANUAL) 0.4 10^3/uL (0.1-1.4); ABSOLUTE NEUTROPHILS# (MANUAL) 17.6 10^3/uL (1.7-8.2); BASOPHILS % (MANUAL) 0 % (0-2); EOSINOPHILS % (MANUAL) 0 % (0-6); LYMPHOCYTES % (MANUAL) 6 % (13-45); MONOCYTES % (MANUAL) 2 % (3-13); SEGMENTED NEUTROPHILS % (MAN) 92 % (42-78); TOTAL CELLS COUNTED 100
[2018-03-23 04:54] LABS: PLATELET COMMENT ADEQUATE
[2018-03-23 04:55] LABS: RBC MORPHOLOGY COMMENT NORMO-CYTIC/CHROMIC
[2018-03-23 04:57] LABS: ALANINE AMINOTRANSFERASE 25 U/L (9-52); ALBUMIN 3.3 g/dL (3.5-5.0); ALKALINE PHOSPHATASE 73 U/L (38-126); ANION GAP 8 (5-19); ASPARTATE AMINO TRANSFERASE 44 U/L (14-36); BILIRUBIN,DIRECT 0.3 mg/dL (0.0-0.4); BILIRUBIN,TOTAL 1.1 mg/dL (0.2-1.3); BLOOD UREA NITROGEN 20 mg/dL (7-20); CALCIUM 8.7 mg/dL (8.4-10.2); CARBON DIOXIDE 29 mmol/L (22-30); CHLORIDE 91 mmol/L (98-107); GLUCOSE 104 mg/dL (75-110); POTASSIUM 4.2 mmol/L (3.6-5.0); SODIUM 128.3 mmol/L (137-145); TOTAL PROTEIN 6.2 g/dL (6.3-8.2)
[2018-03-23] MEDS: VANCOMYCIN HCL 750 MG in DEXTROSE 5%-WATER 250 ML IV SCH ×2 (06:00→18:07)
[2018-03-23] MEDS: LEVOTHYROXINE SODIUM 0.025 MG TABLET NG SCH (06:01)
[2018-03-23 06:24] LABS: ARTERIAL BLOOD BASE EXCESS 1.6 mmol/L; ARTERIAL BLOOD FIO2 2LPM; ARTERIAL BLOOD H2CO3 1.43 mmol/L (1.05-1.35); ARTERIAL BLOOD HCO3 27.3 mmol/L (20-24); ARTERIAL BLOOD O2 SATURATION 91.8 % (94-98); ARTERIAL BLOOD PCO2 47.6 mmHg (35-45); ARTERIAL BLOOD PH 7.38 (7.35-7.45); ARTERIAL BLOOD PO2 63.9 mmHg (80-100); ARTERIAL BLOOD TOTAL CO2 28.8 mmol/L (21-25)
[2018-03-23] MEDS: BUDESONIDE NEB 0.5 MG/2 ML AMPUL NEB SCH ×2 (08:08→20:06)
--- NOTE | 2018-03-23 08:31 | RADIOLOGY REPORT (SQ) ---
EXAM DESCRIPTION: CHEST SINGLE VIEW COMPLETED DATE/TIME: 03/23/2018 6:53 am REASON FOR STUDY: resp fail COMPARISON: 03/22/2018 EXAM PARAMETERS: NUMBER OF VIEWS: One view. TECHNIQUE: Single frontal radiographic view of the chest acquired. RADIATION DOSE: NA LIMITATIONS: None. FINDINGS: LUNGS AND PLEURA: Marked increase in the diffuse bilateral opacities since the previous st udy. Bilateral pleural effusions. MEDIASTINUM AND HILAR STRUCTURES: No masses. Contour normal. HEART AND VASCULAR STRUCTURES: Heart is enlarged. Vascular congestion. BONES: No acute findings. HARDWARE: None in the chest. OTHER: No other significant finding. IMPRESSION: Deterioration the appearance of the chest with interval development of diffuse bilateral opacities and bilateral effusions. Likely pulmonary edema. TECHNICAL DOCUMENTATION: JOB ID: [id number] [employer]- All Rights Reserved Reading location - IP/workstation name: [email or web address]
[2018-03-23 09:04] LABS: URINE POTASSIUM 43.5 mmol/L (22-164)
[2018-03-23 09:22] LABS: APPEARANCE,URINE TURBID; BILIRUBIN,URINE NEGATIVE (NEGATIVE); COLOR,URINE YELLOW; GLUCOSE, URINE NEGATIVE (NEGATIVE); KETONES,URINE NEGATIVE (NEGATIVE); LEUKOCYTE ESTERASE,URINE MODERATE (NEGATIVE); NITRITE,URINE NEGATIVE (NEGATIVE); PROTEIN,URINE 30 mg/dL (NEGATIVE); URIC ACID CRYSTALS,URINE TOO NUMEROUS TO CNT /HPF; UROBILINOGEN,URINE NEGATIVE mg/dL (<2.0)
[2018-03-23] MEDS: LISINOPRIL 5 MG TABLET PO SCH ×2 (09:50→22:08)
[2018-03-23] MEDS: FAMOTIDINE INJ/PF 20 MG/2 ML SDV IV SCH ×2 (09:50→22:08)
[2018-03-23] MEDS: POTASSIUM CHLORIDE 20 MEQ/15 ML UDCUP NG SCH (09:50)
[2018-03-23] MEDS: PREDNISONE 20 MG TABLET NG SCH (09:50)
[2018-03-23] MEDS: CEFEPIME 2 GM/D5W RTU 2 GM/50 ML RTUPB IV SCH ×2 (09:51→22:19)
[2018-03-23] MEDS: METOPROLOL TARTRATE 50 MG TABLET NG SCH ×2 (09:51→22:10)
[2018-03-23] MEDS: DEXTROSE 5%-NORMAL SALINE 1,000 ML IV PRN (09:57)
[2018-03-23] MEDS: RIVAROXABAN 15 MG TABLET NG SCH ×2 (09:57→18:07)
[2018-03-23] MEDS: SPIRONOLACTONE 25 MG TABLET NG SCH (09:57)
[2018-03-23] MEDS: FUROSEMIDE 20 MG TABLET NG SCH (10:02)
[2018-03-23 10:49] LABS: VANCOMYCIN,TROUGH 29.3 ug/mL (5.0-20.0)
--- NOTE | 2018-03-23 17:25 | PDOC PROGRESS REPORT ---
Subjective Progress Note for:: 03/23/18 Subjective:: The patient is awake and alert. She knows she is in the hospital. It was somewhat hard to understand her with the BiPAP mask on but she has been tachypneic so we wanted to keep the BiPAP in place at this time. Reason For Visit: PNEUMONIA, ACUTE HYPOXIC RESP FAILURE Physical Exam Vital Signs: Temp Pulse Resp BP Pulse Ox 97.5 F 100 20 132/77 H 99 03/23/18 10:04 03/23/18 14:07 03/23/18 16:00 03/23/18 10:04 03/23/18 16:00 Intake & Output 03/22/18 03/23/18 03/24/18 06:59 06:59 06:59 Intake Total 2378 1258 1350 Output Total 3125 1645 120 Balance -747 -387 1230 Weight 58.6 kg 58.2 kg General appearance: PRESENT: mild distress, thin Head exam: PRESENT: normocephalic Respiratory exam: PRESENT: decreased breath sounds - Especially right base, symmetrical. ABSENT: wheezes Cardiovascular exam: PRESENT: irregular rhythm Vascular exam: PRESENT: pallor GI/Abdominal exam: PRESENT: normal bowel sounds, soft. ABSENT: distended, tenderness Gentrourinary exam: PRESENT: indwelling catheter Extremities exam: PRESENT: other - Very cool feet. No discoloration.. ABSENT: pedal edema Neurological exam: PRESENT: alert, awake, oriented to person, oriented to place Psychiatric exam: PRESENT: anxious Results Laboratory Results: 03/23/18 04:09 03/23/18 04:09 03/23/18 03/23/18 03/23/18 04:09 04:09 06:04 WBC 19.1 H RBC 3.81 Hgb 12.0 Hct 35.8 L MCV 94 MCH 31.6 MCHC 33.6 RDW 14.7 H Plt Count 192 Seg Neutrophils % Not Reportable Lymphocytes % Not Reportable Monocytes % Not Reportable Eosinophils % Not Reportable Basophils % Not Reportable Absolute Neutrophils Not Reportable Absolute Lymphocytes Not Reportable Absolute Monocytes Not Reportable Absolute Eosinophils Not Reportable Absolute Basophils Not Reportable Carbonic Acid 1.43 H HCO3/H2CO3 Ratio 19:1 ABG pH 7.38 ABG pCO2 47.6 H ABG pO2 63.9 L ABG HCO3 27.3 H ABG O2 Saturation 91.8 L ABG Base Excess 1.6 FiO2 2LPM Sodium 128.3 L Potassium 4.2 Chloride 91 L Carbon Dioxide 29 Anion Gap 8 BUN 20 Creatinine 0.44 L Est GFR ( Amer) > 60 Est GFR (Non-Af Amer) > 60 Glucose 104 Lactic Acid Calcium 8.7 Magnesium 1.9 Total Bilirubin 1.1 AST 44 H ALT 25 Alkaline Phosphatase 73 Total Protein 6.2 L Albumin 3.3 L Urine Color Urine Appearance Urine pH Ur Specific [place] Urine Protein Urine Glucose (UA) Urine Ketones Urine Blood Urine Nitrite Ur Leukocyte Esterase Urine WBC (Auto) Urine RBC (Auto) 03/23/18 03/23/18 08:30 09:09 WBC RBC Hgb Hct MCV MCH MCHC RDW Plt Count Seg Neutrophils % Lymphocytes % Monocytes % Eosinophils % Basophils % Absolute Neutrophils Absolute Lymphocytes Absolute Monocytes Absolute Eosinophils Absolute Basophils Carbonic Acid HCO3/H2CO3 Ratio ABG pH ABG pCO2 ABG pO2 ABG HCO3 ABG O2 Saturation ABG Base Excess FiO2 Sodium Potassium Chloride Carbon Dioxide Anion Gap BUN Creatinine Est GFR ( Amer) Est GFR (Non-Af Amer) Glucose Lactic Acid 2.9 H Calcium Magnesium Total Bilirubin AST ALT Alkaline Phosphatase Total Protein Albumin Urine Color YELLOW Urine Appearance TURBID Urine pH 5.0 Ur Specific [place] 1.020 Urine Protein 30 H Urine Glucose (UA) NEGATIVE Urine Ketones NEGATIVE Urine Blood MODERATE H Urine Nitrite NEGATIVE Ur Leukocyte Esterase MODERATE H Urine WBC (Auto) >182 Urine RBC (Auto) >182 03/17/18 14:31 Blood Blood Culture - Final NO GROWTH IN 5 DAYS 03/17/18 12:20 Blood Blood Culture - Final NO GROWTH IN 5 DAYS 03/17/18 12:20 Troponin I < 0.012 NT-Pro-B Natriuret Pep 6580 H Impressions: Chest Ultrasound 03/18/18 00:00 IMPRESSION: MODERATE LEFT PLEURAL EFFUSION. Chest X-Ray 03/23/18 06:00 IMPRESSION: Deterioration the appearance of the chest with interval development of diffuse bilateral opacities and bilateral effusions. Likely pulmonary edema. Assessment & Plan - Diagnosis (1) Acute respiratory failure with hypoxia Is this a current diagnosis for this admission?: Yes Plan: The patient has been successfully intubated. She still requires BiPAP therapy. Occasionally she will become tachypneic. She is somewhat anxious to leave the hospital. A small dose of IV lorazepam will be available if needed. We will try and use it sparingly. (2) Healthcare-associated pneumonia Is this a current diagnosis for this admission?: Yes Plan: The patient's x-ray shows bilateral infiltrative process. Her white blood cell count did jump yesterday to 19,000. She is on antibiotic therapy at this time. (3) Mediastinal lymphadenopathy Is this a current diagnosis for this admission?: Yes Plan: This is felt to be the source of her chronic pleural effusion. 2 days ago she had minimal drainage from the Pleurx catheter. We will try and drain it again today and check for volume. (4) Atrial fibrillation Qualifiers: Atrial fibrillation type: paroxysmal Qualified Code(s): I48.0 - Paroxysmal atrial fibrillation Is this a current diagnosis for this admission?: Yes Plan: Her heart rate does vary. Her blood pressure is labile as well. If necessary we can adjust her diltiazem. Her metoprolol dose has been stable. Continue long-term anticoagulation. (5) Acute cystitis Qualifiers: Hematuria presence: without hematuria Qualified Code(s): N30.00 - Acute cystitis without hematuria Is this a current diagnosis for this admission?: Yes Plan: Complete antibiotic therapy as ordered. (6) Lactic acidemia Is this a current diagnosis for this admission?: Yes Plan: The patient's pH does not reflect acidosis however she still has an elevated lactic acid level. It is slowly improving and is down to 2.9. I expect it to resolve especially with increasing oral diet and coverage for potential infection. - Time Time Spent with patient: 15-24 minutes Medications reviewed and adjusted accordingly: Yes
[2018-03-23] MEDS: DILTIAZEM HCL 30 MG TABLET PO SCH ×2 (18:07→22:09)
[2018-03-23] MEDS: SIMVASTATIN 40 MG TABLET NG SCH (22:09)
[2018-03-24] MEDS: IPRATROPIUM/ALBUTEROL 0.5-2.5 MG/3 ML AMPUL NEB SCH ×4 (02:00→21:23)
[2018-03-24 03:57] LABS: ABSOLUTE BASOPHILS # (AUTO) 0.1 10^3/uL (0.0-0.2); ABSOLUTE EOSINOPHILS # (AUTO) 0.1 10^3/uL (0.0-0.6); ABSOLUTE MONOCYTES (AUTO) 0.9 10^3/uL (0.1-1.4); ABSOLUTE NEUT (AUTO) 16.2 10^3/uL (1.7-8.2); BASOPHILS % (AUTO) 0.4 % (0-2); EOSINOPHILS % (AUTO) 0.3 % (0-6); HEMATOCRIT 34.1 % (36.0-47.0); HEMOGLOBIN 11.6 g/dL (12.0-15.5); LYMPHOCYTES % (AUTO) 5.5 % (13-45); MEAN CORPUSCULAR HEMOGLOBIN 31.7 pg (27.0-33.4); MEAN CORPUSCULAR HGB CONC 34.1 g/dL (32.0-36.0); MEAN CORPUSCULAR VOLUME 93 fl (80-97); PLATELET COUNT 185 10^3/uL (150-450); RED BLOOD COUNT 3.66 10^6/uL (3.72-5.28); RED CELL DISTRIBUTION WIDTH 14.8 % (11.5-14.0); SEGMENTED NEUTROPHILS % (AUTO) 88.8 % (42-78); TOTAL CELLS COUNTED % (AUTO) 100 %; WHITE BLOOD COUNT 18.2 10^3/uL (4.0-10.5)
[2018-03-24 04:07] LABS: ALANINE AMINOTRANSFERASE 28 U/L (9-52); ALBUMIN 2.9 g/dL (3.5-5.0); ALKALINE PHOSPHATASE 73 U/L (38-126); ANION GAP 7 (5-19); ASPARTATE AMINO TRANSFERASE 32 U/L (14-36); BILIRUBIN,DIRECT 0.3 mg/dL (0.0-0.4); BILIRUBIN,TOTAL 1.2 mg/dL (0.2-1.3); BLOOD UREA NITROGEN 18 mg/dL (7-20); CALCIUM 8.7 mg/dL (8.4-10.2); CARBON DIOXIDE 30 mmol/L (22-30); CHLORIDE 91 mmol/L (98-107); GLUCOSE 88 mg/dL (75-110); POTASSIUM 3.7 mmol/L (3.6-5.0); SODIUM 127.8 mmol/L (137-145); TOTAL PROTEIN 5.5 g/dL (6.3-8.2)
[2018-03-24] MEDS: VANCOMYCIN HCL 750 MG in DEXTROSE 5%-WATER 250 ML IV SCH ×2 (05:37→18:20)
[2018-03-24] MEDS: DILTIAZEM HCL 30 MG TABLET PO SCH ×3 (05:37→22:44)
[2018-03-24] MEDS: LEVOTHYROXINE SODIUM 0.025 MG TABLET NG SCH (05:38)
[2018-03-24 06:02] LABS: ARTERIAL BLOOD BASE EXCESS 4.5 mmol/L; ARTERIAL BLOOD H2CO3 1.19 mmol/L (1.05-1.35); ARTERIAL BLOOD HCO3 28.4 mmol/L (20-24); ARTERIAL BLOOD O2 SATURATION 92.5 % (94-98); ARTERIAL BLOOD PCO2 39.5 mmHg (35-45); ARTERIAL BLOOD PH 7.47 (7.35-7.45); ARTERIAL BLOOD PO2 59.8 mmHg (80-100); ARTERIAL BLOOD TOTAL CO2 29.6 mmol/L (21-25)
[2018-03-24 06:13] LABS: ARTERIAL BLOOD FIO2 30%
[2018-03-24] MEDS: METOPROLOL TARTRATE 50 MG TABLET NG SCH ×2 (08:00→22:45)
[2018-03-24] MEDS: RIVAROXABAN 15 MG TABLET NG SCH ×2 (08:01→18:19)
[2018-03-24] MEDS: BUDESONIDE NEB 0.5 MG/2 ML AMPUL NEB SCH ×2 (08:12→21:23)
--- NOTE | 2018-03-24 08:26 | RADIOLOGY REPORT (SQ) ---
EXAM DESCRIPTION: CHEST SINGLE VIEW COMPLETED DATE/TIME: 03/24/2018 6:58 am REASON FOR STUDY: pna/resp failure COMPARISON: Chest films 03/23/2018, 03/22/2018, 03/21/2018, 03/20/2018 CT chest 03/03/2018 EXAM PARAMETERS: NUMBER OF VIEWS: One view. TECHNIQUE: Single frontal radiographic view of the chest acquired. RADIATION DOSE: NA LIMITATIONS: None. FINDINGS: LUNGS AND PLEURA: Consolidation is present in the left upper lobe and throughout the right lung, similar compared to 03/23/2018. Left upper lobe disease has progressed since 03/22/2018. Stable trace left and small right pleural effusions. No pneumothorax. MEDIASTINUM AND HILAR STRUCTURES: No masses. Contour normal. HEART AND VASCULAR STRUCTURES: Stable cardiomegaly. 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 HARDWARE: Right-sided PleurX catheter in the lower right chest unchanged. OTHER: No other significant finding. IMPRESSION: Bilateral airspace disease with bilateral pleural effusions as above TECHNICAL DOCUMENTATION: JOB ID: [id number]- All Rights Reserved Reading location - IP/workstation name: [email or web address]
[2018-03-24] MEDS: LORAZEPAM INJ 2 MG/1 ML VIAL IV PRN (09:30)
[2018-03-24] MEDS: DEXTROSE 5%-NORMAL SALINE 1,000 ML IV PRN (09:39)
[2018-03-24] MEDS: FUROSEMIDE 20 MG TABLET NG SCH (09:41)
[2018-03-24] MEDS: SPIRONOLACTONE 25 MG TABLET NG SCH (09:41)
[2018-03-24] MEDS: PREDNISONE 20 MG TABLET NG SCH (09:41)
[2018-03-24] MEDS: CEFEPIME 2 GM/D5W RTU 2 GM/50 ML RTUPB IV SCH ×2 (09:41→22:43)
[2018-03-24] MEDS: LISINOPRIL 5 MG TABLET PO SCH ×2 (09:42→22:45)
[2018-03-24] MEDS: POTASSIUM CHLORIDE 20 MEQ/15 ML UDCUP NG SCH (09:43)
[2018-03-24] MEDS: FAMOTIDINE INJ/PF 20 MG/2 ML SDV IV SCH ×2 (09:43→22:44)
--- NOTE | 2018-03-24 12:53 | PDOC PROGRESS REPORT ---
Subjective Progress Note for:: 03/24/18 Subjective:: The patient is resting comfortably on nasal cannula this morning. She is not tachypneic. She does not appear to be in discomfort or respiratory distress. Reason For Visit: PNEUMONIA, ACUTE HYPOXIC RESP FAILURE Physical Exam Vital Signs: Temp Pulse Resp BP Pulse Ox 97.7 F 81 28 H 134/80 H 95 03/24/18 12:00 03/24/18 12:00 03/24/18 12:00 03/24/18 12:00 03/24/18 12:00 Intake & Output 03/23/18 03/24/18 03/25/18 06:59 06:59 06:59 Intake Total 1258 1700 1248 Output Total 1645 1275 525 Balance -387 425 723 Weight 58.2 kg 58.3 kg General appearance: PRESENT: no acute distress, thin Head exam: PRESENT: normocephalic Mouth exam: PRESENT: moist Respiratory exam: PRESENT: rhonchi - Rhonchorous breath sounds bilaterally., other - Limited inspiratory phase Cardiovascular exam: PRESENT: irregular rhythm GI/Abdominal exam: PRESENT: normal bowel sounds, soft. ABSENT: tenderness Extremities exam: PRESENT: pedal edema Musculoskeletal exam: PRESENT: other - Decreased muscle mass Neurological exam: PRESENT: alert, awake, oriented to person, oriented to place, oriented to situation Psychiatric exam: PRESENT: flat affect Skin exam: PRESENT: other - Very thin skin. Occasional bruising with a skin tear. Results Laboratory Results: 03/24/18 03:50 03/24/18 03:50 03/24/18 03/24/18 03/24/18 03:50 03:50 05:43 WBC 18.2 H RBC 3.66 L Hgb 11.6 L Hct 34.1 L MCV 93 MCH 31.7 MCHC 34.1 RDW 14.8 H Plt Count 185 Seg Neutrophils % 88.8 H Lymphocytes % 5.5 L Monocytes % 5.0 Eosinophils % 0.3 Basophils % 0.4 Absolute Neutrophils 16.2 H Absolute Lymphocytes 1.0 Absolute Monocytes 0.9 Absolute Eosinophils 0.1 Absolute Basophils 0.1 Carbonic Acid 1.19 HCO3/H2CO3 Ratio 23:1 ABG pH 7.47 H ABG pCO2 39.5 ABG pO2 59.8 L ABG HCO3 28.4 H ABG O2 Saturation 92.5 L ABG Base Excess 4.5 FiO2 30% Sodium 127.8 L Potassium 3.7 Chloride 91 L Carbon Dioxide 30 Anion Gap 7 BUN 18 Creatinine 0.36 L Est GFR ( Amer) > 60 Est GFR (Non-Af Amer) > 60 Glucose 88 Calcium 8.7 Magnesium 1.8 Total Bilirubin 1.2 AST 32 ALT 28 Alkaline Phosphatase 73 Total Protein 5.5 L Albumin 2.9 L 03/17/18 12:20 Troponin I < 0.012 NT-Pro-B Natriuret Pep 6580 H Impressions: Chest Ultrasound 03/18/18 00:00 IMPRESSION: MODERATE LEFT PLEURAL EFFUSION. Chest X-Ray 03/24/18 06:00 IMPRESSION: Bilateral airspace disease with bilateral pleural effusions as above Assessment & Plan - Diagnosis (1) Acute respiratory failure with hypoxia Is this a current diagnosis for this admission?: Yes Plan: Patient has been successfully extubated. She is on nasal cannula. She will likely require BiPAP at night but this will be on an as-needed basis. It is available during the day as well. She does have a very weak cough. Respiratory therapy will work with her and will institute flutter valve. If this is unsuccessful consider chest physiotherapy. Also consider nasal trumpet for suctioning if needed. (2) Healthcare-associated pneumonia Is this a current diagnosis for this admission?: Yes Plan: Her cough is weak so we need to encourage secretion clearance. Continue vancomycin and cefepime. Monitor white blood cell count. (3) Mediastinal lymphadenopathy Is this a current diagnosis for this admission?: Yes Plan: Awaiting further diagnostic evaluation possibly the source of her pleural effusions. Pleurx catheter drainage yesterday had little output. (4) Atrial fibrillation Qualifiers: Atrial fibrillation type: paroxysmal Qualified Code(s): I48.0 - Paroxysmal atrial fibrillation Is this a current diagnosis for this admission?: Yes Plan: Occasional tachycardia. Continue current medications. Will increase dose if necessary. Continue chronic anticoagulation. (5) Acute cystitis Qualifiers: Hematuria presence: without hematuria Qualified Code(s): N30.00 - Acute cystitis without hematuria Is this a current diagnosis for this admission?: Yes Plan: Complete antibiotics as ordered. (6) Lactic acidemia Is this a current diagnosis for this admission?: Yes Plan: Continues to improve. Check lactic acid tomorrow. - Time Time Spent with patient: 35 or more minutes Medications reviewed and adjusted accordingly: Yes
[2018-03-24 18:10] LABS: VANCOMYCIN,TROUGH 16.1 ug/mL (5.0-20.0)
[2018-03-24] MEDS: SIMVASTATIN 40 MG TABLET NG SCH (22:45)
[2018-03-25] MEDS: IPRATROPIUM/ALBUTEROL 0.5-2.5 MG/3 ML AMPUL NEB SCH ×4 (02:01→20:51)
[2018-03-25 04:25] LABS: HEMATOCRIT 30.6 % (36.0-47.0); HEMOGLOBIN 10.7 g/dL (12.0-15.5); MEAN CORPUSCULAR HEMOGLOBIN 32.1 pg (27.0-33.4); MEAN CORPUSCULAR VOLUME 92 fl (80-97); PLATELET COUNT 164 10^3/uL (150-450); RED BLOOD COUNT 3.33 10^6/uL (3.72-5.28); RED CELL DISTRIBUTION WIDTH 14.8 % (11.5-14.0); WHITE BLOOD COUNT 17.6 10^3/uL (4.0-10.5)
[2018-03-25 04:39] LABS: ALANINE AMINOTRANSFERASE 24 U/L (9-52); ALBUMIN 2.9 g/dL (3.5-5.0); ALKALINE PHOSPHATASE 70 U/L (38-126); ANION GAP 7 (5-19); ASPARTATE AMINO TRANSFERASE 39 U/L (14-36); BILIRUBIN,DIRECT 0.3 mg/dL (0.0-0.4); BLOOD UREA NITROGEN 17 mg/dL (7-20); CALCIUM 8.4 mg/dL (8.4-10.2); CARBON DIOXIDE 30 mmol/L (22-30); CHLORIDE 90 mmol/L (98-107); GLUCOSE 106 mg/dL (75-110); POTASSIUM 3.5 mmol/L (3.6-5.0); SODIUM 127.2 mmol/L (137-145); TOTAL PROTEIN 5.5 g/dL (6.3-8.2)
[2018-03-25 04:45] LABS: ABSOLUTE LYMPHOCYTES# (MANUAL) 0.4 10^3/uL (0.5-4.7); ABSOLUTE MONOCYTES # (MANUAL) 0.5 10^3/uL (0.1-1.4); ABSOLUTE NEUTROPHILS# (MANUAL) 16.7 10^3/uL (1.7-8.2); BASOPHILS % (MANUAL) 0 % (0-2); EOSINOPHILS % (MANUAL) 0 % (0-6); LYMPHOCYTES % (MANUAL) 2 % (13-45); MONOCYTES % (MANUAL) 3 % (3-13); SEGMENTED NEUTROPHILS % (MAN) 95 % (42-78); TOTAL CELLS COUNTED 100
[2018-03-25 04:46] LABS: RBC MORPHOLOGY COMMENT NORMO-CYTIC/CHROMIC; TOXIC GRANULATION 1+; TOXIC VACUOLATION PRESENT
[2018-03-25 04:47] LABS: PLATELET COMMENT ADEQUATE
[2018-03-25] MEDS: DILTIAZEM HCL 30 MG TABLET PO SCH ×3 (05:05→21:43)
[2018-03-25] MEDS: LEVOTHYROXINE SODIUM 0.025 MG TABLET NG SCH (05:06)
[2018-03-25 06:40] LABS: ARTERIAL BLOOD BASE EXCESS 3.4 mmol/L; ARTERIAL BLOOD H2CO3 1.54 mmol/L (1.05-1.35); ARTERIAL BLOOD HCO3 29.5 mmol/L (20-24); ARTERIAL BLOOD O2 SATURATION 86.6 % (94-98); ARTERIAL BLOOD PH 7.38 (7.35-7.45); ARTERIAL BLOOD PO2 53.3 mmHg (80-100); ARTERIAL BLOOD TOTAL CO2 31.1 mmol/L (21-25)
[2018-03-25 06:42] LABS: ARTERIAL BLOOD FIO2 40%
[2018-03-25] MEDS: BUDESONIDE NEB 0.5 MG/2 ML AMPUL NEB SCH ×2 (08:14→20:51)
--- NOTE | 2018-03-25 09:11 | RADIOLOGY REPORT (SQ) ---
EXAM DESCRIPTION: CHEST SINGLE VIEW COMPLETED DATE/TIME: 03/25/2018 6:49 am REASON FOR STUDY: pna COMPARISON: Previous day. NUMBER OF VIEWS: One view. TECHNIQUE: Single frontal radiographic image of the chest acquired. LIMITATIONS: None. FINDINGS: LUNGS AND PLEURA: Bilateral airspace disease, right greater the left. Small effusions. N o significant change. MEDIASTINUM AND HEART: Stable heart size and mediastinal structures. SUPPORT DEVICES: Appropriate location without change. BONY STRUCTURES: No acute findings. HARDWARE: CABG. OTHER: No other significant finding. IMPRESSION: Bilateral pneumonia. No significant change. Reading location - IP/workstation name: [id number]
[2018-03-25] MEDS: LISINOPRIL 5 MG TABLET PO SCH ×2 (11:10→21:42)
[2018-03-25] MEDS: METOPROLOL TARTRATE 50 MG TABLET NG SCH ×2 (11:10→21:43)
[2018-03-25] MEDS: FUROSEMIDE 20 MG TABLET NG SCH (11:10)
[2018-03-25] MEDS: FAMOTIDINE INJ/PF 20 MG/2 ML SDV IV SCH ×2 (11:11→21:42)
[2018-03-25] MEDS: POTASSIUM CHLORIDE 20 MEQ/15 ML UDCUP NG SCH (11:11)
[2018-03-25] MEDS: PREDNISONE 20 MG TABLET NG SCH (11:11)
[2018-03-25] MEDS: RIVAROXABAN 15 MG TABLET NG SCH ×2 (11:14→18:22)
[2018-03-25] MEDS: SPIRONOLACTONE 25 MG TABLET NG SCH (11:15)
--- NOTE | 2018-03-25 14:33 | PDOC CONSULTATION ---
Consultation Consult Date: 03/18/18 Attending physician:: ANTOINETTE ARECHIGA Consult reason:: resp failure/pna History of Present Illness Admission Date/PCP: 03/17/18 13:36 SABINO [place] History of Present Illness: [place] NOVAK is a 82 year old female, multiple admissions in the past several months for this is a 82-year-old female with recurrent pleural effusions and most recently in addition to this pulmonary emboli as she returns at this time with increasing shortness of breath she had left from a prior admission with a Pleurx catheter and the fluid draining had decreased to approximately 50 cc/day apparently she complained of increasing shortness of breath and not a cough that was on it she was unable to produce any sputum. Is currently intubated and sedated. Past Medical History Cardiac Medical History: Reports: Atrial Fibrillation, Coronary Artery Disease, Myocardial Infarction, Hyperlipidema, Hypertension Denies: Congestive Heart Failure, Peripheral Vascular Disease, Pulmonary Embolism, Heart Murmur Pulmonary Medical History: Reports: Pneumonia - A BABY Denies: Asthma, Bronchitis, Respiratory Failure, Sleep Apnea, Tuberculosis Comment Only: Chronic Obstructive Pulmonary Disease (COPD) - denies Endocrine Medical History: Reports: Hypothyroidism - NEW DX, meds x 1 week only Denies: Hyperthyroidism Renal/ Medical History: Denies: End Stage Renal Disease Malignancy Medical History: Denies: Lung Cancer GI Medical History: Denies: Crohn's Disease, Hiatal Hernia Comment Only: Gastroesophageal Reflux Disease - denies Musculoskeltal Medical History: Reports: Arthritis Denies: Fibromyalgia Psychiatric Medical History: Traumatic Medical History: Denies: Gunshot Wound, Traumatic Brain Injury Hematology: Denies: Sickle Cell Disease Comment Only: Anemia - denies Infectious Medical History: Denies: HIV Past Surgical History Past Surgical History: Reports: Cardiac Catheterization - STENT, Coronary Artery Bypass Graft - 4 vessel CABG 2004, Orthopedic Surgery - RIGHT TKR Denies: Amputation, Appendectomy, Section, Cholecystectomy, Colostomy, Gastric Bypass Surgery, Herniorrhaphy, Hysterectomy, Mastectomy, Tonsillectomy, Tubal Ligation Social History Information Source: [facility] Records Lives with: Other - [facility] Smoking Status: Never Smoker Frequency of Alcohol Use: None Hx Recreational Drug Use: No Drugs: None Hx Prescription Drug Abuse: No - Advance Directive Resuscitation Status: Full Code Family History Family History: CAD Parental Family History Reviewed: Yes Children Family History Reviewed: Yes Sibling(s) Family History Reviewed.: Yes Medication/Allergy Home Medications: Calcium Carbonate/Vitamin D3 [Calcium 600-Vit D3 500 Softgel] 1 cap PO DAILY 03/03/18 Levothyroxine Sodium [Synthroid 0.025 mg Tablet] 25 mcg PO Q6AM 03/03/18 Metoprolol Succinate [Toprol Xl 50 mg Tab.sr] 50 mg PO BID 03/03/18 Multivitamin [Multiple Vitamins] 1 each PO DAILY 03/03/18 Simvastatin [Zocor 20 mg Tablet] 20 mg PO QHS 03/03/18 Acetaminophen [Tylenol 325 mg Tablet] 650 mg PO Q4HP PRN #30 tablet 03/10/18 Guaifenesin [Mucinex Sr 600 mg Tablet.sa] 600 mg PO Q12 #10 tablet.sa 03/10/18 Ipratropium/Albuterol Sulfate [Duoneb 3 ml Ampul] 3 ml NEB RTQ4HP PRN #30 vial.neb 03/10/18 Fluticasone/Vilanterol [Breo Ellipta 100-25 Mcg INH] 2 puff IH DAILY 03/17/18 Allergies/Adverse Reactions: procaine HCl [From Novocain] Allergy (Intermediate, Verified 03/11/16 11:06) SIGNIFICANT SWELLING AND BRUISING AT SITE OF INJ aloe polysaccharide [From Novacort] Allergy (Verified 03/11/16 11:06) hydrocortisone acetate [From Novacort] Allergy (Verified 03/11/16 11:06) pramoxine HCl [From Novacort] Allergy (Verified 03/11/16 11:06) morphine [Morphine] Adverse Reaction (Verified 03/11/16 11:06) Review of Systems ROS unobtainable: Due to endotracheal tube Physical Exam Vital Signs: Temp Pulse Resp BP Pulse Ox 97.7 F 74 18 116/57 L 94 03/18/18 08:00 03/18/18 08:00 03/18/18 08:00 03/18/18 08:00 03/18/18 08:00 Intake & Output 03/17/18 03/18/18 03/19/18 06:59 06:59 06:59 Intake Total 1927 Output Total 850 100 Balance 1077 -100 Weight 59.6 kg General appearance: PRESENT: no acute distress, disheveled, thin, well- developed, well-nourished Head exam: PRESENT: atraumatic, normocephalic Eye exam: PRESENT: conjunctiva pale. ABSENT: nystagmus, scleral icterus Mouth exam: PRESENT: dry mucosa, neck supple, tongue midline, other - ET tube in place Neck exam: ABSENT: carotid bruit, JVD, lymphadenopathy, thyromegaly, tracheal deviation, tracheostomy Respiratory exam: PRESENT: decreased breath sounds, prolonged expiratory phas, rales, rhonchi, unlabored. ABSENT: retraction, stridor Cardiovascular exam: PRESENT: RRR, +S1, +S2 Pulses: PRESENT: normal radial pulses GI/Abdominal exam: PRESENT: soft. ABSENT: tenderness Extremities exam: PRESENT: pedal edema. ABSENT: calf tenderness, clubbing, joint swelling Musculoskeletal exam: ABSENT: deformity, dislocation Neurological exam: ABSENT: awake Skin exam: PRESENT: dry, warm Results Laboratory Results: 03/18/18 04:01 03/18/18 04:01 03/17/18 03/17/18 03/17/18 12:20 12:20 12:20 WBC 23.3 H RBC 3.27 L Hgb 10.5 L Hct 31.4 L MCV 96 MCH 32.1 MCHC 33.4 RDW 14.3 H Plt Count 340 Seg Neutrophils % Not Reportable Lymphocytes % Not Reportable Monocytes % Not Reportable Eosinophils % Not Reportable Basophils % Not Reportable Absolute Neutrophils Not Reportable Absolute Lymphocytes Not Reportable Absolute Monocytes Not Reportable Absolute Eosinophils Not Reportable Absolute Basophils Not Reportable Carbonic Acid HCO3/H2CO3 Ratio ABG pH ABG pCO2 ABG pO2 ABG HCO3 ABG O2 Saturation ABG Base Excess VBG pH VBG pCO2 VBG HCO3 VBG Base Excess FiO2 Sodium 124.7 L Potassium 6.0 H* Chloride 90 L Carbon Dioxide 24 Anion Gap 11 BUN 22 H Creatinine 0.52 Est GFR ( Amer) > 60 Est GFR (Non-Af Amer) > 60 Glucose 197 H Lactic Acid 5.2 H Calcium 8.4 Total Bilirubin 1.0 AST 37 H ALT 36 Alkaline Phosphatase 79 Total Protein 5.6 L Albumin 3.1 L Urine Color Urine Appearance Urine pH Ur Specific [place] Urine Protein Urine Glucose (UA) Urine Ketones Urine Blood Urine Nitrite Ur Leukocyte Esterase Urine WBC (Auto) Urine RBC (Auto) 03/17/18 03/17/18 03/17/18 12:20 12:20 14:00 WBC RBC Hgb Hct MCV MCH MCHC RDW Plt Count Seg Neutrophils % Lymphocytes % Monocytes % Eosinophils % Basophils % Absolute Neutrophils Absolute Lymphocytes Absolute Monocytes Absolute Eosinophils Absolute Basophils Carbonic Acid 1.54 H HCO3/H2CO3 Ratio 20:1 ABG pH 7.41 ABG pCO2 51.0 H ABG pO2 69.2 L ABG HCO3 31.7 H ABG O2 Saturation 93.8 L ABG Base Excess 6.1 VBG pH 7.18 L* VBG pCO2 67.0 H* VBG HCO3 24.2 VBG Base Excess -5.1 FiO2 60% Sodium Potassium Chloride Carbon Dioxide Anion Gap BUN Creatinine Est GFR ( Amer) Est GFR (Non-Af Amer) Glucose Lactic Acid Calcium Total Bilirubin AST ALT Alkaline Phosphatase Total Protein Albumin Urine Color YELLOW Urine Appearance SLIGHTLY-CLOUDY Urine pH 5.0 Ur Specific [place] 1.023 Urine Protein 30 H Urine Glucose (UA) NEGATIVE Urine Ketones NEGATIVE Urine Blood NEGATIVE Urine Nitrite NEGATIVE Ur Leukocyte Esterase NEGATIVE Urine WBC (Auto) 2 Urine RBC (Auto) 8 03/17/18 03/17/18 03/17/18 16:40 16:40 22:55 WBC RBC Hgb Hct MCV MCH MCHC RDW Plt Count Seg Neutrophils % Lymphocytes % Monocytes % Eosinophils % Basophils % Absolute Neutrophils Absolute Lymphocytes Absolute Monocytes Absolute Eosinophils Absolute Basophils Carbonic Acid HCO3/H2CO3 Ratio ABG pH ABG pCO2 ABG pO2 ABG HCO3 ABG O2 Saturation ABG Base Excess VBG pH VBG pCO2 VBG HCO3 VBG Base Excess FiO2 Sodium 126.5 L 127.9 L Potassium 5.2 H 4.8 Chloride 93 L 91 L Carbon Dioxide 27 32 H Anion Gap 7 5 BUN 23 H 21 H Creatinine 0.43 L 0.42 L Est GFR ( Amer) > 60 > 60 Est GFR (Non-Af Amer) > 60 > 60 Glucose 137 H 89 Lactic Acid 5.1 H Calcium 8.5 8.5 Total Bilirubin AST ALT Alkaline Phosphatase Total Protein Albumin Urine Color Urine Appearance Urine pH Ur Specific [place] Urine Protein Urine Glucose (UA) Urine Ketones Urine Blood Urine Nitrite Ur Leukocyte Esterase Urine WBC (Auto) Urine RBC (Auto) 03/17/18 03/18/18 03/18/18 22:55 04:01 04:01 WBC 14.3 H RBC 2.96 L Hgb 9.5 L Hct 27.8 L MCV 94 MCH 32.1 MCHC 34.2 RDW 14.7 H Plt Count 185 Seg Neutrophils % 88.7 H Lymphocytes % 5.8 L Monocytes % 5.5 Eosinophils % 0.0 Basophils % 0.0 Absolute Neutrophils 12.7 H Absolute Lymphocytes 0.8 Absolute Monocytes 0.8 Absolute Eosinophils 0.0 Absolute Basophils 0.0 Carbonic Acid HCO3/H2CO3 Ratio ABG pH ABG pCO2 ABG pO2 ABG HCO3 ABG O2 Saturation ABG Base Excess VBG pH VBG pCO2 VBG HCO3 VBG Base Excess FiO2 Sodium 129.2 L Potassium 4.6 Chloride 94 L Carbon Dioxide 30 Anion Gap 5 BUN 20 Creatinine 0.50 L Est GFR ( Amer) > 60 Est GFR (Non-Af Amer) > 60 Glucose 72 L Lactic Acid 4.1 H Calcium 8.1 L Total Bilirubin AST ALT Alkaline Phosphatase Total Protein Albumin Urine Color Urine Appearance Urine pH Ur Specific [place] Urine Protein Urine Glucose (UA) Urine Ketones Urine Blood Urine Nitrite Ur Leukocyte Esterase Urine WBC (Auto) Urine RBC (Auto) 03/18/18 05:43 WBC RBC Hgb Hct MCV MCH MCHC RDW Plt Count Seg Neutrophils % Lymphocytes % Monocytes % Eosinophils % Basophils % Absolute Neutrophils Absolute Lymphocytes Absolute Monocytes Absolute Eosinophils Absolute Basophils Carbonic Acid 1.06 HCO3/H2CO3 Ratio 24:1 ABG pH 7.49 H ABG pCO2 35.3 ABG pO2 63.7 L ABG HCO3 26.1 H ABG O2 Saturation 94.0 ABG Base Excess 2.8 VBG pH VBG pCO2 VBG HCO3 VBG Base Excess FiO2 30% Sodium Potassium Chloride Carbon Dioxide Anion Gap BUN Creatinine Est GFR ( Amer) Est GFR (Non-Af Amer) Glucose Lactic Acid Calcium Total Bilirubin AST ALT Alkaline Phosphatase Total Protein Albumin Urine Color Urine Appearance Urine pH Ur Specific [place] Urine Protein Urine Glucose (UA) Urine Ketones Urine Blood Urine Nitrite Ur Leukocyte Esterase Urine WBC (Auto) Urine RBC (Auto) 03/17/18 12:20 Troponin I < 0.012 NT-Pro-B Natriuret Pep 6580 H Impressions: Chest X-Ray 03/17/18 12:03 IMPRESSION: 1. Mildly worsened extensive right sided airspace disease with moderate effusion. 2. Intubation with endotracheal tube at midthoracic trachea. Assessment & Plan - Diagnosis (1) Acute and chronic respiratory failure Qualifiers: Respiratory failure complication: hypoxia and hypercapnia Qualified Code(s): J96.21 - Acute and chronic respiratory failure with hypoxia; J96.22 - Acute and chronic respiratory failure with hypercapnia Is this a current diagnosis for this admission?: Yes Plan: Bilateral pleural effusions overload with hospital-acquired pneumonia (2) Atrial fibrillation Qualifiers: Atrial fibrillation type: paroxysmal Qualified Code(s): I48.0 - Paroxysmal atrial fibrillation Is this a current diagnosis for this admission?: Yes Plan: Stable at this time (3) Pleural effusion Is this a current diagnosis for this admission?: Yes Plan: Vertex catheter on the right loculated pleural effusions with effusion on the left as well (4) HTN (hypertension) Is this a current diagnosis for this admission?: Yes (5) Mediastinal lymphadenopathy Is this a current diagnosis for this admission?: Yes Plan: And has undergone fiberoptic bronchoscopy that was nondiagnostic if patient could be stabilized mediastinoscopy was certainly be appropriate as she said this lymphadenopathy quite a while - Time Total Critical Time (Minutes): 50
--- NOTE | 2018-03-25 14:36 | PDOC PROGRESS REPORT ---
Subjective Progress Note for:: 03/19/18 Subjective:: Intubated and sedated Reason For Visit: PNEUMONIA, ACUTE HYPOXIC RESP FAILURE Physical Exam Vital Signs: Temp Pulse Resp BP Pulse Ox 97.2 F 91 21 H 151/96 H 97 03/19/18 08:01 03/19/18 08:00 03/19/18 08:01 03/19/18 08:01 03/19/18 08:01 Intake & Output 03/18/18 03/19/18 03/20/18 06:59 06:59 06:59 Intake Total 3177 791 19 Output Total 850 1955 40 Balance 2327 -1164 -21 Weight 59.6 kg 59.4 kg General appearance: PRESENT: no acute distress, disheveled, thin, well- developed, well-nourished Head exam: PRESENT: atraumatic, normocephalic Eye exam: PRESENT: conjunctiva pale. ABSENT: nystagmus, scleral icterus Mouth exam: PRESENT: dry mucosa, neck supple, tongue midline, other - ET tube in place Neck exam: ABSENT: carotid bruit, JVD, lymphadenopathy, thyromegaly, tracheal deviation, tracheostomy Respiratory exam: PRESENT: decreased breath sounds, prolonged expiratory phas, rales, rhonchi, unlabored. ABSENT: retraction, stridor Cardiovascular exam: PRESENT: irregular rhythm Pulses: PRESENT: normal radial pulses GI/Abdominal exam: PRESENT: soft. ABSENT: tenderness Gentrourinary exam: PRESENT: indwelling catheter Extremities exam: ABSENT: calf tenderness, clubbing, joint swelling Musculoskeletal exam: ABSENT: deformity, dislocation Neurological exam: ABSENT: awake Skin exam: PRESENT: dry, warm Results Laboratory Results: 03/19/18 05:49 03/19/18 05:49 03/18/18 03/19/18 03/19/18 12:40 04:56 05:49 WBC RBC Hgb Hct MCV MCH MCHC RDW Plt Count Seg Neutrophils % Lymphocytes % Monocytes % Eosinophils % Basophils % Absolute Neutrophils Absolute Lymphocytes Absolute Monocytes Absolute Eosinophils Absolute Basophils Carbonic Acid Cancelled HCO3/H2CO3 Ratio Cancelled ABG pH Cancelled ABG pCO2 Cancelled ABG pO2 Cancelled ABG HCO3 Cancelled ABG O2 Saturation Cancelled ABG Base Excess Cancelled FiO2 Cancelled Sodium 128.5 L Potassium 4.4 Chloride 95 L Carbon Dioxide 25 Anion Gap 9 BUN 19 Creatinine 0.41 L Est GFR ( Amer) > 60 Est GFR (Non-Af Amer) > 60 Glucose 88 Lactic Acid Calcium 8.2 L Magnesium 1.9 Urine Color COLORLESS Urine Appearance CLEAR Urine pH 6.0 Ur Specific [place] 1.004 Urine Protein NEGATIVE Urine Glucose (UA) NEGATIVE Urine Ketones NEGATIVE Urine Blood SMALL H Urine Nitrite NEGATIVE Ur Leukocyte Esterase TRACE H Urine WBC (Auto) 17 Urine RBC (Auto) 2 03/19/18 03/19/18 03/19/18 05:49 05:49 05:59 WBC 15.0 H RBC 3.30 L Hgb 10.4 L Hct 31.1 L MCV 94 MCH 31.4 MCHC 33.3 RDW 14.4 H Plt Count 195 Seg Neutrophils % Not Reportable Lymphocytes % Not Reportable Monocytes % Not Reportable Eosinophils % Not Reportable Basophils % Not Reportable Absolute Neutrophils Not Reportable Absolute Lymphocytes Not Reportable Absolute Monocytes Not Reportable Absolute Eosinophils Not Reportable Absolute Basophils Not Reportable Carbonic Acid 0.98 L HCO3/H2CO3 Ratio 26:1 ABG pH 7.52 H ABG pCO2 32.5 L ABG pO2 69.7 L ABG HCO3 25.7 H ABG O2 Saturation 95.6 ABG Base Excess 3.1 FiO2 30% Sodium Potassium Chloride Carbon Dioxide Anion Gap BUN Creatinine Est GFR ( Amer) Est GFR (Non-Af Amer) Glucose Lactic Acid 4.1 H Calcium Magnesium Urine Color Urine Appearance Urine pH Ur Specific [place] Urine Protein Urine Glucose (UA) Urine Ketones Urine Blood Urine Nitrite Ur Leukocyte Esterase Urine WBC (Auto) Urine RBC (Auto) 03/17/18 12:20 Troponin I < 0.012 NT-Pro-B Natriuret Pep 6580 H Impressions: Chest Ultrasound 03/18/18 00:00 IMPRESSION: MODERATE LEFT PLEURAL EFFUSION. Chest X-Ray 03/19/18 06:00 IMPRESSION: No significant change. Assessment & Plan - Diagnosis (1) Acute and chronic respiratory failure Qualifiers: Respiratory failure complication: hypoxia and hypercapnia Qualified Code(s): J96.21 - Acute and chronic respiratory failure with hypoxia; J96.22 - Acute and chronic respiratory failure with hypercapnia Is this a current diagnosis for this admission?: Yes Plan: Bilateral pleural effusions overload with hospital-acquired pneumonia (2) Atrial fibrillation Qualifiers: Atrial fibrillation type: paroxysmal Qualified Code(s): I48.0 - Paroxysmal atrial fibrillation Is this a current diagnosis for this admission?: Yes Plan: Stable at this time (3) Pleural effusion Is this a current diagnosis for this admission?: Yes Plan: Vertex catheter on the right loculated pleural effusions with effusion on the left as well (4) HTN (hypertension) Is this a current diagnosis for this admission?: Yes Plan: Stable at this time (5) Mediastinal lymphadenopathy Is this a current diagnosis for this admission?: Yes Plan: And has undergone fiberoptic bronchoscopy that was nondiagnostic if patient could be stabilized mediastinoscopy was certainly be appropriate as she said this lymphadenopathy quite a while - Time Total Critical Time (Minutes): 45
--- NOTE | 2018-03-25 14:42 | PDOC PROGRESS REPORT ---
Subjective Progress Note for:: 03/20/18 Subjective:: Intubated and sedated Reason For Visit: PNEUMONIA, ACUTE HYPOXIC RESP FAILURE Physical Exam Vital Signs: Temp Pulse Resp BP Pulse Ox 97.7 F 114 H 21 H 109/41 L 94 03/20/18 10:00 03/20/18 10:00 03/20/18 10:00 03/20/18 10:00 03/20/18 10:00 Intake & Output 03/19/18 03/20/18 03/21/18 06:59 06:59 06:59 Intake Total 841 1668 264 Output Total 0609 4822 180 Balance -1114 -81 84 Weight 59.4 kg 60.2 kg General appearance: PRESENT: no acute distress, disheveled, thin, well- developed, well-nourished Head exam: PRESENT: atraumatic, normocephalic Eye exam: PRESENT: conjunctiva pale. ABSENT: nystagmus, scleral icterus Mouth exam: PRESENT: dry mucosa, neck supple, tongue midline, other - ET Neck exam: ABSENT: carotid bruit, JVD, lymphadenopathy, thyromegaly, tracheal deviation, tracheostomy Respiratory exam: PRESENT: decreased breath sounds, prolonged expiratory phas, rales, rhonchi, unlabored. ABSENT: retraction, stridor Cardiovascular exam: PRESENT: irregular rhythm Pulses: PRESENT: normal radial pulses GI/Abdominal exam: PRESENT: soft. ABSENT: tenderness Gentrourinary exam: PRESENT: indwelling catheter Extremities exam: ABSENT: calf tenderness, clubbing, joint swelling Musculoskeletal exam: ABSENT: deformity, dislocation Neurological exam: ABSENT: awake Skin exam: PRESENT: dry, warm Results Laboratory Results: 03/20/18 03:57 03/20/18 03:57 03/20/18 03/20/18 03/20/18 03:57 03:57 06:52 WBC 12.5 H RBC 3.06 L Hgb 9.9 L Hct 28.5 L MCV 93 MCH 32.3 MCHC 34.7 RDW 14.3 H Plt Count 157 Seg Neutrophils % Not Reportable Lymphocytes % Not Reportable Monocytes % Not Reportable Eosinophils % Not Reportable Basophils % Not Reportable Absolute Neutrophils Not Reportable Absolute Lymphocytes Not Reportable Absolute Monocytes Not Reportable Absolute Eosinophils Not Reportable Absolute Basophils Not Reportable Carbonic Acid 0.79 L HCO3/H2CO3 Ratio 28:1 ABG pH 7.55 H ABG pCO2 26.4 L ABG pO2 73.8 L ABG HCO3 22.3 ABG O2 Saturation 96.6 ABG Base Excess 0.7 FiO2 30% Sodium 127.2 L Potassium 3.5 L Chloride 94 L Carbon Dioxide 25 Anion Gap 8 BUN 19 Creatinine 0.47 L Est GFR ( Amer) > 60 Est GFR (Non-Af Amer) > 60 Glucose 110 Calcium 7.9 L Magnesium 1.8 03/17/18 12:20 Catheterized Urine Urine Culture - Final Enterococcus Faecalis(Group D) 03/17/18 12:20 Troponin I < 0.012 NT-Pro-B Natriuret Pep 6580 H Impressions: Chest Ultrasound 03/18/18 00:00 IMPRESSION: MODERATE LEFT PLEURAL EFFUSION. Chest X-Ray 03/20/18 06:00 IMPRESSION: No significant change. Assessment & Plan - Diagnosis (1) Acute and chronic respiratory failure Qualifiers: Respiratory failure complication: hypoxia and hypercapnia Qualified Code(s): J96.21 - Acute and chronic respiratory failure with hypoxia; J96.22 - Acute and chronic respiratory failure with hypercapnia Is this a current diagnosis for this admission?: Yes Plan: Bilateral pleural effusions overload with hospital-acquired pneumonia (2) Atrial fibrillation Qualifiers: Atrial fibrillation type: paroxysmal Qualified Code(s): I48.0 - Paroxysmal atrial fibrillation Is this a current diagnosis for this admission?: Yes Plan: Stable at this time (3) Pleural effusion Is this a current diagnosis for this admission?: Yes Plan: Vertex catheter on the right loculated pleural effusions with effusion on the left as well (4) Mediastinal lymphadenopathy Is this a current diagnosis for this admission?: Yes Plan: And has undergone fiberoptic bronchoscopy that was nondiagnostic if patient could be stabilized mediastinoscopy was certainly be appropriate as she said this lymphadenopathy quite a while - Time Total Critical Time (Minutes): 40
--- NOTE | 2018-03-25 14:44 | PDOC PROGRESS REPORT ---
Subjective Progress Note for:: 03/21/18 Subjective:: Intubated and sedated Reason For Visit: PNEUMONIA, ACUTE HYPOXIC RESP FAILURE Physical Exam Vital Signs: Temp Pulse Resp BP Pulse Ox 97.7 F 96 19 147/65 H 94 03/21/18 11:03 03/21/18 10:00 03/21/18 11:03 03/21/18 11:03 03/21/18 11:33 Intake & Output 03/20/18 03/21/18 03/22/18 06:59 06:59 06:59 Intake Total 1668 1465 1007 Output Total 1749 2270 325 Balance -81 -805 682 Weight 60.2 kg 59.3 kg General appearance: PRESENT: no acute distress, disheveled, thin, well- developed, well-nourished Head exam: PRESENT: atraumatic, normocephalic Eye exam: PRESENT: conjunctiva pale. ABSENT: nystagmus, scleral icterus Mouth exam: PRESENT: dry mucosa, neck supple, tongue midline, other - ET tube Neck exam: ABSENT: carotid bruit, JVD, lymphadenopathy, thyromegaly, tracheal deviation, tracheostomy Respiratory exam: PRESENT: decreased breath sounds, prolonged expiratory phas, rales, rhonchi, unlabored. ABSENT: retraction, stridor Cardiovascular exam: PRESENT: irregular rhythm Pulses: PRESENT: normal radial pulses GI/Abdominal exam: PRESENT: soft. ABSENT: tenderness Gentrourinary exam: PRESENT: indwelling catheter Extremities exam: ABSENT: calf tenderness, clubbing, joint swelling, pedal edema Musculoskeletal exam: ABSENT: deformity, dislocation Neurological exam: ABSENT: awake Skin exam: PRESENT: dry, warm Results Laboratory Results: 03/21/18 03:55 03/21/18 03:55 03/21/18 03/21/18 03/21/18 03:55 03:55 03:55 WBC 14.0 H RBC 3.17 L Hgb 10.2 L Hct 29.7 L MCV 93 MCH 32.0 MCHC 34.3 RDW 14.2 H Plt Count 157 Seg Neutrophils % Not Reportable Lymphocytes % Not Reportable Monocytes % Not Reportable Eosinophils % Not Reportable Basophils % Not Reportable Absolute Neutrophils Not Reportable Absolute Lymphocytes Not Reportable Absolute Monocytes Not Reportable Absolute Eosinophils Not Reportable Absolute Basophils Not Reportable Carbonic Acid HCO3/H2CO3 Ratio ABG pH ABG pCO2 ABG pO2 ABG HCO3 ABG O2 Saturation ABG Base Excess FiO2 Sodium 127.7 L Potassium 3.3 L Chloride 92 L Carbon Dioxide 25 Anion Gap 11 BUN 21 H Creatinine 0.50 L Est GFR ( Amer) > 60 Est GFR (Non-Af Amer) > 60 Glucose 115 H Lactic Acid 4.9 H Calcium 8.1 L Magnesium 1.8 03/21/18 04:25 WBC RBC Hgb Hct MCV MCH MCHC RDW Plt Count Seg Neutrophils % Lymphocytes % Monocytes % Eosinophils % Basophils % Absolute Neutrophils Absolute Lymphocytes Absolute Monocytes Absolute Eosinophils Absolute Basophils Carbonic Acid 0.89 L HCO3/H2CO3 Ratio 26:1 ABG pH 7.52 H ABG pCO2 29.5 L ABG pO2 60.8 L ABG HCO3 23.8 ABG O2 Saturation 94.0 ABG Base Excess 1.5 FiO2 21% Sodium Potassium Chloride Carbon Dioxide Anion Gap BUN Creatinine Est GFR ( Amer) Est GFR (Non-Af Amer) Glucose Lactic Acid Calcium Magnesium 03/18/18 12:40 Catheterized Urine Urine Culture - Final Yeast, Not Rosa M Albicans Mixed Urogenital Nahomy 03/18/18 07:45 Sputum Gram Stain - Final 03/18/18 07:45 Sputum Sputum Culture - Final Reduced Normal Nahomy 03/17/18 12:20 Troponin I < 0.012 NT-Pro-B Natriuret Pep 6580 H Impressions: Chest Ultrasound 03/18/18 00:00 IMPRESSION: MODERATE LEFT PLEURAL EFFUSION. Chest X-Ray 03/21/18 06:00 IMPRESSION: No significant change. Assessment & Plan - Diagnosis (1) Acute and chronic respiratory failure Qualifiers: Respiratory failure complication: hypoxia and hypercapnia Qualified Code(s): J96.21 - Acute and chronic respiratory failure with hypoxia; J96.22 - Acute and chronic respiratory failure with hypercapnia Is this a current diagnosis for this admission?: Yes Plan: Bilateral pleural effusions overload with hospital-acquired pneumonia (2) Atrial fibrillation Qualifiers: Atrial fibrillation type: paroxysmal Qualified Code(s): I48.0 - Paroxysmal atrial fibrillation Is this a current diagnosis for this admission?: Yes Plan: Stable at this time (3) Pleural effusion Is this a current diagnosis for this admission?: Yes Plan: Vertex catheter on the right loculated pleural effusions with effusion on the left as well (4) Mediastinal lymphadenopathy Is this a current diagnosis for this admission?: Yes Plan: And has undergone fiberoptic bronchoscopy that was nondiagnostic if patient could be stabilized mediastinoscopy was certainly be appropriate as she said this lymphadenopathy quite a while - Time Total Critical Time (Minutes): 40
--- NOTE | 2018-03-25 14:46 | PDOC PROGRESS REPORT ---
Subjective Progress Note for:: 03/22/18 Subjective:: Intubated awake Reason For Visit: PNEUMONIA, ACUTE HYPOXIC RESP FAILURE Physical Exam Vital Signs: Temp Pulse Resp BP Pulse Ox 96.4 F L 67 33 H 129/58 H 100 03/25/18 13:05 03/25/18 13:53 03/25/18 13:53 03/25/18 13:05 03/25/18 13:53 Intake & Output 03/24/18 03/25/18 03/26/18 06:59 06:59 06:59 Intake Total 1700 1959 300 Output Total 1275 1400 150 Balance 425 559 150 Weight 58.3 kg 59.2 kg General appearance: PRESENT: no acute distress, cooperative, disheveled, thin, well-developed, well-nourished Head exam: PRESENT: atraumatic, normocephalic Eye exam: PRESENT: conjunctiva pale, EOMI. ABSENT: nystagmus, scleral icterus Mouth exam: PRESENT: dry mucosa, neck supple, tongue midline, other - ET tube Neck exam: ABSENT: carotid bruit, JVD, lymphadenopathy, thyromegaly, tracheal deviation, tracheostomy Respiratory exam: PRESENT: decreased breath sounds, prolonged expiratory phas, rales, rhonchi, unlabored. ABSENT: retraction, stridor, tachypnea Cardiovascular exam: PRESENT: irregular rhythm Pulses: PRESENT: normal radial pulses GI/Abdominal exam: PRESENT: soft. ABSENT: tenderness Gentrourinary exam: PRESENT: indwelling catheter Extremities exam: PRESENT: pedal edema. ABSENT: calf tenderness, clubbing, joint swelling Musculoskeletal exam: ABSENT: deformity, dislocation Neurological exam: PRESENT: awake Psychiatric exam: PRESENT: flat affect Skin exam: PRESENT: dry, warm Results Laboratory Results: 03/25/18 04:08 03/25/18 04:08 03/25/18 03/25/18 03/25/18 04:08 04:08 04:08 WBC 17.6 H RBC 3.33 L Hgb 10.7 L Hct 30.6 L MCV 92 MCH 32.1 MCHC 35.0 RDW 14.8 H Plt Count 164 Seg Neutrophils % Not Reportable Lymphocytes % Not Reportable Monocytes % Not Reportable Eosinophils % Not Reportable Basophils % Not Reportable Absolute Neutrophils Not Reportable Absolute Lymphocytes Not Reportable Absolute Monocytes Not Reportable Absolute Eosinophils Not Reportable Absolute Basophils Not Reportable Carbonic Acid HCO3/H2CO3 Ratio ABG pH ABG pCO2 ABG pO2 ABG HCO3 ABG O2 Saturation ABG Base Excess FiO2 Sodium 127.2 L Potassium 3.5 L Chloride 90 L Carbon Dioxide 30 Anion Gap 7 BUN 17 Creatinine 0.28 L Est GFR ( Amer) > 60 Est GFR (Non-Af Amer) > 60 Glucose 106 Lactic Acid Cancelled Calcium 8.4 Total Bilirubin 1.0 AST 39 H ALT 24 Alkaline Phosphatase 70 Total Protein 5.5 L Albumin 2.9 L 03/25/18 03/25/18 03/25/18 04:08 06:20 09:50 WBC RBC Hgb Hct MCV MCH MCHC RDW Plt Count Seg Neutrophils % Lymphocytes % Monocytes % Eosinophils % Basophils % Absolute Neutrophils Absolute Lymphocytes Absolute Monocytes Absolute Eosinophils Absolute Basophils Carbonic Acid 1.54 H HCO3/H2CO3 Ratio 19:1 ABG pH 7.38 ABG pCO2 51.0 H ABG pO2 53.3 L ABG HCO3 29.5 H ABG O2 Saturation 86.6 L ABG Base Excess 3.4 FiO2 40% Sodium Potassium Chloride Carbon Dioxide Anion Gap BUN Creatinine Est GFR ( Amer) Est GFR (Non-Af Amer) Glucose Lactic Acid 3.6 H 2.8 H Calcium Total Bilirubin AST ALT Alkaline Phosphatase Total Protein Albumin 03/23/18 08:40 Catheterized Urine Urine Culture - Final NO GROWTH 2 DAYS 03/17/18 12:20 Troponin I < 0.012 NT-Pro-B Natriuret Pep 6580 H Impressions: Chest Ultrasound 03/18/18 00:00 IMPRESSION: MODERATE LEFT PLEURAL EFFUSION. Chest X-Ray 03/25/18 06:00 IMPRESSION: Bilateral pneumonia. No significant change. Assessment & Plan - Diagnosis (1) Acute and chronic respiratory failure Qualifiers: Respiratory failure complication: hypoxia and hypercapnia Qualified Co de(s): J96.21 - Acute and chronic respiratory failure with hypoxia; J96.22 - Acute and chronic respiratory failure with hypercapnia Is this a current diagnosis for this admission?: Yes Plan: Deteriorate, minute ventilation, FiO2, airway pressure suggests successful extubation will proceed with extubation (2) Atrial fibrillation Qualifiers: Atrial fibrillation type: paroxysmal Qualified Code(s): I48.0 - Paroxysmal atrial fibrillation Is this a current diagnosis for this admission?: Yes Plan: Stable at this time (3) Pleural effusion Is this a current diagnosis for this admission?: Yes Plan: Vertex catheter on the right loculated pleural effusions with effusion on the left as well (4) HTN (hypertension) Is this a current diagnosis for this admission?: Yes Plan: Stable at this time (5) Mediastinal lymphadenopathy Is this a current diagnosis for this admission?: Yes Plan: And has undergone fiberoptic bronchoscopy that was nondiagnostic if patient could be stabilized mediastinoscopy was certainly be appropriate as she said this lymphadenopathy quite a while - Time Total Critical Time (Minutes): 55
--- NOTE | 2018-03-25 14:48 | PDOC PROGRESS REPORT ---
Subjective Progress Note for:: 03/23/18 Subjective:: 24 hours status post extubation stable Reason For Visit: PNEUMONIA, ACUTE HYPOXIC RESP FAILURE Physical Exam Vital Signs: Temp Pulse Resp BP Pulse Ox 96.4 F L 67 33 H 129/58 H 100 03/25/18 13:05 03/25/18 13:53 03/25/18 13:53 03/25/18 13:05 03/25/18 13:53 Intake & Output 03/24/18 03/25/18 03/26/18 06:59 06:59 06:59 Intake Total 1700 1959 300 Output Total 1275 1400 150 Balance 425 559 150 Weight 58.3 kg 59.2 kg General appearance: PRESENT: no acute distress, cooperative, disheveled, thin, well-developed, well-nourished Head exam: PRESENT: atraumatic, normocephalic Eye exam: PRESENT: conjunctiva pale, EOMI. ABSENT: nystagmus, scleral icterus Mouth exam: PRESENT: dry mucosa, neck supple, tongue midline Neck exam: ABSENT: carotid bruit, JVD, lymphadenopathy, thyromegaly, tracheal deviation, tracheostomy Respiratory exam: PRESENT: decreased breath sounds, prolonged expiratory phas, rhonchi, unlabored. ABSENT: retraction, stridor, tachypnea Cardiovascular exam: PRESENT: irregular rhythm Pulses: PRESENT: normal radial pulses GI/Abdominal exam: PRESENT: soft. ABSENT: tenderness Gentrourinary exam: PRESENT: indwelling catheter Extremities exam: ABSENT: calf tenderness, clubbing, joint swelling Musculoskeletal exam: ABSENT: deformity, dislocation Neurological exam: PRESENT: alert, awake Psychiatric exam: PRESENT: flat affect Skin exam: PRESENT: dry, warm Results Laboratory Results: 03/25/18 04:08 03/25/18 04:08 03/25/18 03/25/18 03/25/18 04:08 04:08 04:08 WBC 17.6 H RBC 3.33 L Hgb 10.7 L Hct 30.6 L MCV 92 MCH 32.1 MCHC 35.0 RDW 14.8 H Plt Count 164 Seg Neutrophils % Not Reportable Lymphocytes % Not Reportable Monocytes % Not Reportable Eosinophils % Not Reportable Basophils % Not Reportable Absolute Neutrophils Not Reportable Absolute Lymphocytes Not Reportable Absolute Monocytes Not Reportable Absolute Eosinophils Not Reportable Absolute Basophils Not Reportable Carbonic Acid HCO3/H2CO3 Ratio ABG pH ABG pCO2 ABG pO2 ABG HCO3 ABG O2 Saturation ABG Base Excess FiO2 Sodium 127.2 L Potassium 3.5 L Chloride 90 L Carbon Dioxide 30 Anion Gap 7 BUN 17 Creatinine 0.28 L Est GFR ( Amer) > 60 Est GFR (Non-Af Amer) > 60 Glucose 106 Lactic Acid Cancelled Calcium 8.4 Total Bilirubin 1.0 AST 39 H ALT 24 Alkaline Phosphatase 70 Total Protein 5.5 L Albumin 2.9 L 03/25/18 03/25/18 03/25/18 04:08 06:20 09:50 WBC RBC Hgb Hct MCV MCH MCHC RDW Plt Count Seg Neutrophils % Lymphocytes % Monocytes % Eosinophils % Basophils % Absolute Neutrophils Absolute Lymphocytes Absolute Monocytes Absolute Eosinophils Absolute Basophils Carbonic Acid 1.54 H HCO3/H2CO3 Ratio 19:1 ABG pH 7.38 ABG pCO2 51.0 H ABG pO2 53.3 L ABG HCO3 29.5 H ABG O2 Saturation 86.6 L ABG Base Excess 3.4 FiO2 40% Sodium Potassium Chloride Carbon Dioxide Anion Gap BUN Creatinine Est GFR ( Amer) Est GFR (Non-Af Amer) Glucose Lactic Acid 3.6 H 2.8 H Calcium Total Bilirubin AST ALT Alkaline Phosphatase Total Protein Albumin 03/23/18 08:40 Catheterized Urine Urine Culture - Final NO GROWTH 2 DAYS 03/17/18 12:20 Troponin I < 0.012 NT-Pro-B Natriuret Pep 6580 H Impressions: Chest Ultrasound 03/18/18 00:00 IMPRESSION: MODERATE LEFT PLEURAL EFFUSION. Chest X-Ray 03/25/18 06:00 IMPRESSION: Bilateral pneumonia. No significant change. Assessment & Plan - Diagnosis (1) Acute and chronic respiratory failure Qualifiers: Respiratory failure complication: hypoxia and hypercapnia Qualified Code(s): J96.21 - Acute and chronic respiratory failure with hypoxia; J96.22 - Acute and chronic respiratory failure with hypercapnia Is this a current diagnosis for this admission?: Yes Plan: Stable thus far (2) Atrial fibrillation Qualifiers: Atrial fibrillation type: paroxysmal Qualified Code(s): I48.0 - Paroxysmal atrial fibrillation Is this a current diagnosis for this admission?: Yes Plan: Stable at this time (3) Pleural effusion Is this a current diagnosis for this admission?: Yes Plan: Vertex catheter on the right loculated pleural effusions with effusion on the left as well (4) HTN (hypertension) Is this a current diagnosis for this admission?: Yes Plan: Stable at this time (5) Mediastinal lymphadenopathy Is this a current diagnosis for this admission?: Yes Plan: And has undergone fiberoptic bronchoscopy that was nondiagnostic if patient could be stabilized mediastinoscopy was certainly be appropriate as she said this lymphadenopathy quite a while - Time Total Critical Time (Minutes): 40
--- NOTE | 2018-03-25 14:51 | PDOC PROGRESS REPORT ---
Subjective Progress Note for:: 03/24/18 Subjective:: stable Reason For Visit: PNEUMONIA, ACUTE HYPOXIC RESP FAILURE Physical Exam Vital Signs: Temp Pulse Resp BP Pulse Ox 96.4 F L 67 33 H 129/58 H 100 03/25/18 13:05 03/25/18 13:53 03/25/18 13:53 03/25/18 13:05 03/25/18 13:53 Intake & Output 03/24/18 03/25/18 03/26/18 06:59 06:59 06:59 Intake Total 1700 1959 300 Output Total 1275 1400 150 Balance 425 559 150 Weight 58.3 kg 59.2 kg General appearance: PRESENT: no acute distress, disheveled, thin, well- developed, well-nourished Head exam: PRESENT: atraumatic, normocephalic Eye exam: PRESENT: conjunctiva pale, EOMI. ABSENT: nystagmus, scleral icterus Mouth exam: PRESENT: dry mucosa, neck supple, tongue midline Neck exam: ABSENT: carotid bruit, JVD, lymphadenopathy, thyromegaly, tracheal deviation, tracheostomy Respiratory exam: PRESENT: decreased breath sounds, prolonged expiratory phas, rhonchi, unlabored. ABSENT: retraction, stridor, tachypnea Cardiovascular exam: PRESENT: irregular rhythm Pulses: PRESENT: normal radial pulses GI/Abdominal exam: PRESENT: soft. ABSENT: tenderness Gentrourinary exam: PRESENT: indwelling catheter Extremities exam: ABSENT: calf tenderness, clubbing, joint swelling, pedal edema Musculoskeletal exam: ABSENT: deformity, dislocation Neurological exam: PRESENT: awake Psychiatric exam: PRESENT: appropriate affect Skin exam: PRESENT: dry, warm Results Laboratory Results: 03/25/18 04:08 03/25/18 04:08 03/25/18 03/25/18 03/25/18 04:08 04:08 04:08 WBC 17.6 H RBC 3.33 L Hgb 10.7 L Hct 30.6 L MCV 92 MCH 32.1 MCHC 35.0 RDW 14.8 H Plt Count 164 Seg Neutrophils % Not Reportable Lymphocytes % Not Reportable Monocytes % Not Reportable Eosinophils % Not Reportable Basophils % Not Reportable Absolute Neutrophils Not Reportable Absolute Lymphocytes Not Reportable Absolute Monocytes Not Reportable Absolute Eosinophils Not Reportable Absolute Basophils Not Reportable Carbonic Acid HCO3/H2CO3 Ratio ABG pH ABG pCO2 ABG pO2 ABG HCO3 ABG O2 Saturation ABG Base Excess FiO2 Sodium 127.2 L Potassium 3.5 L Chloride 90 L Carbon Dioxide 30 Anion Gap 7 BUN 17 Creatinine 0.28 L Est GFR ( Amer) > 60 Est GFR (Non-Af Amer) > 60 Glucose 106 Lactic Acid Cancelled Calcium 8.4 Total Bilirubin 1.0 AST 39 H ALT 24 Alkaline Phosphatase 70 Total Protein 5.5 L Albumin 2.9 L 03/25/18 03/25/18 03/25/18 04:08 06:20 09:50 WBC RBC Hgb Hct MCV MCH MCHC RDW Plt Count Seg Neutrophils % Lymphocytes % Monocytes % Eosinophils % Basophils % Absolute Neutrophils Absolute Lymphocytes Absolute Monocytes Absolute Eosinophils Absolute Basophils Carbonic Acid 1.54 H HCO3/H2CO3 Ratio 19:1 ABG pH 7.38 ABG pCO2 51.0 H ABG pO2 53.3 L ABG HCO3 29.5 H ABG O2 Saturation 86.6 L ABG Base Excess 3.4 FiO2 40% Sodium Potassium Chloride Carbon Dioxide Anion Gap BUN Creatinine Est GFR ( Amer) Est GFR (Non-Af Amer) Glucose Lactic Acid 3.6 H 2.8 H Calcium Total Bilirubin AST ALT Alkaline Phosphatase Total Protein Albumin 03/23/18 08:40 Catheterized Urine Urine Culture - Final NO GROWTH 2 DAYS 03/17/18 12:20 Troponin I < 0.012 NT-Pro-B Natriuret Pep 6580 H Impressions: Chest Ultrasound 03/18/18 00:00 IMPRESSION: MODERATE LEFT PLEURAL EFFUSION. Chest X-Ray 03/25/18 06:00 IMPRESSION: Bilateral pneumonia. No significant change. Assessment & Plan - Diagnosis (1) Acute and chronic respiratory failure Qualifiers: Respiratory failure complication: hypoxia and hypercapnia Qualified Code(s): J96.21 - Acute and chronic respiratory failure with hypoxia; J96.22 - Acute and chronic respiratory failure with hypercapnia Is this a current diagnosis for this admission?: Yes Plan: Stable thus far (2) Atrial fibrillation Qualifiers: Atrial fibrillation type: paroxysmal Qualified Code(s): I48.0 - Paroxysmal atrial fibrillation Is this a current diagnosis for this admission?: Yes Plan: Stable at this time (3) Pleural effusion Is this a current diagnosis for this admission?: Yes Plan: Vertex catheter on the right loculated pleural effusions with effusion on the left as well (4) HTN (hypertension) Is this a current diagnosis for this admission?: Yes Plan: Stable at this time (5) Mediastinal lymphadenopathy Is this a current diagnosis for this admission?: Yes Plan: And has undergone fiberoptic bronchoscopy that was nondiagnostic if patient could be stabilized mediastinoscopy was certainly be appropriate as she said this lymphadenopathy quite a while - Time Total Critical Time (Minutes): 45
--- NOTE | 2018-03-25 14:53 | PDOC PROGRESS REPORT ---
Subjective Progress Note for:: 03/25/18 Subjective:: Relying more on BiPAP Reason For Visit: PNEUMONIA, ACUTE HYPOXIC RESP FAILURE Physical Exam Vital Signs: Temp Pulse Resp BP Pulse Ox 96.4 F L 67 33 H 129/58 H 100 03/25/18 13:05 03/25/18 13:53 03/25/18 13:53 03/25/18 13:05 03/25/18 13:53 Intake & Output 03/24/18 03/25/18 03/26/18 06:59 06:59 06:59 Intake Total 1700 1959 300 Output Total 1275 1400 150 Balance 425 559 150 Weight 58.3 kg 59.2 kg General appearance: PRESENT: no acute distress, cooperative, disheveled, thin, well-developed, well-nourished Head exam: PRESENT: atraumatic, normocephalic Eye exam: PRESENT: conjunctiva pale, EOMI. ABSENT: nystagmus, scleral icterus Mouth exam: PRESENT: dry mucosa, neck supple, tongue midline Teeth exam: PRESENT: poor dentation Neck exam: ABSENT: carotid bruit, JVD, lymphadenopathy, thyromegaly, tracheal deviation, tracheostomy Respiratory exam: PRESENT: decreased breath sounds, prolonged expiratory phas, rales, rhonchi, unlabored. ABSENT: retraction, stridor Cardiovascular exam: PRESENT: irregular rhythm Pulses: PRESENT: normal radial pulses GI/Abdominal exam: PRESENT: soft. ABSENT: tenderness Gentrourinary exam: PRESENT: indwelling catheter Extremities exam: ABSENT: calf tenderness, clubbing, joint swelling Musculoskeletal exam: ABSENT: deformity, dislocation Neurological exam: PRESENT: alert, awake Skin exam: PRESENT: dry, warm Results Laboratory Results: 03/25/18 04:08 03/25/18 04:08 03/25/18 03/25/18 03/25/18 04:08 04:08 04:08 WBC 17.6 H RBC 3.33 L Hgb 10.7 L Hct 30.6 L MCV 92 MCH 32.1 MCHC 35.0 RDW 14.8 H Plt Count 164 Seg Neutrophils % Not Reportable Lymphocytes % Not Reportable Monocytes % Not Reportable Eosinophils % Not Reportable Basophils % Not Reportable Absolute Neutrophils Not Reportable Absolute Lymphocytes Not Reportable Absolute Monocytes Not Reportable Absolute Eosinophils Not Reportable Absolute Basophils Not Reportable Carbonic Acid HCO3/H2CO3 Ratio ABG pH ABG pCO2 ABG pO2 ABG HCO3 ABG O2 Saturation ABG Base Excess FiO2 Sodium 127.2 L Potassium 3.5 L Chloride 90 L Carbon Dioxide 30 Anion Gap 7 BUN 17 Creatinine 0.28 L Est GFR ( Amer) > 60 Est GFR (Non-Af Amer) > 60 Glucose 106 Lactic Acid Cancelled Calcium 8.4 Total Bilirubin 1.0 AST 39 H ALT 24 Alkaline Phosphatase 70 Total Protein 5.5 L Albumin 2.9 L 03/25/18 03/25/18 03/25/18 04:08 06:20 09:50 WBC RBC Hgb Hct MCV MCH MCHC RDW Plt Count Seg Neutrophils % Lymphocytes % Monocytes % Eosinophils % Basophils % Absolute Neutrophils Absolute Lymphocytes Absolute Monocytes Absolute Eosinophils Absolute Basophils Carbonic Acid 1.54 H HCO3/H2CO3 Ratio 19:1 ABG pH 7.38 ABG pCO2 51.0 H ABG pO2 53.3 L ABG HCO3 29.5 H ABG O2 Saturation 86.6 L ABG Base Excess 3.4 FiO2 40% Sodium Potassium Chloride Carbon Dioxide Anion Gap BUN Creatinine Est GFR ( Amer) Est GFR (Non-Af Amer) Glucose Lactic Acid 3.6 H 2.8 H Calcium Total Bilirubin AST ALT Alkaline Phosphatase Total Protein Albumin 03/23/18 08:40 Catheterized Urine Urine Culture - Final NO GROWTH 2 DAYS 03/17/18 12:20 Troponin I < 0.012 NT-Pro-B Natriuret Pep 6580 H Impressions: Chest Ultrasound 03/18/18 00:00 IMPRESSION: MODERATE LEFT PLEURAL EFFUSION. Chest X-Ray 03/25/18 06:00 IMPRESSION: Bilateral pneumonia. No significant change. Assessment & Plan - Diagnosis (1) Acute and chronic respiratory failure Qualifiers: Respiratory failure complication: hypoxia and hypercapnia Qualified Code(s): J96.21 - Acute and chronic respiratory failure with hypoxia; J96.22 - Acute and chronic respiratory failure with hypercapnia Is this a current diagnosis for this admission?: Yes Plan: More reliant on BiPAP (2) Atrial fibrillation Qualifiers: Atrial fibrillation type: paroxysmal Qualified Code(s): I48.0 - Paroxysmal atrial fibrillation Is this a current diagnosis for this admission?: Yes Plan: Stable at this time (3) Pleural effusion Is this a current diagnosis for this admission?: Yes Plan: Vertex catheter on the right loculated pleural effusions with effusion on the left as well (4) HTN (hypertension) Is this a current diagnosis for this admission?: Yes Plan: Stable at this time (5) Mediastinal lymphadenopathy Is this a current diagnosis for this admission?: Yes Plan: And has undergone fiberoptic bronchoscopy that was nondiagnostic if patient could be stabilized mediastinoscopy was certainly be appropriate as she said this lymphadenopathy quite a while - Time Total Critical Time (Minutes): 45
[2018-03-25] MEDS: LORAZEPAM INJ 2 MG/1 ML VIAL IV PRN (18:22)
[2018-03-25 18:40] LABS: ARTERIAL BLOOD H2CO3 1.62 mmol/L (1.05-1.35); ARTERIAL BLOOD HCO3 30.3 mmol/L (20-24); ARTERIAL BLOOD O2 SATURATION 89.4 % (94-98); ARTERIAL BLOOD PCO2 53.9 mmHg (35-45); ARTERIAL BLOOD PH 7.37 (7.35-7.45); ARTERIAL BLOOD PO2 59.2 mmHg (80-100)
[2018-03-25 18:44] LABS: ARTERIAL BLOOD FIO2 60%
--- NOTE | 2018-03-25 19:23 | PDOC PROGRESS REPORT ---
Subjective Progress Note for:: 03/25/18 Subjective:: Extubated 03/23/18. Awake, wants to know when she is going home. She has been requiring more BiPAP overnight. Denies chest pain or palpitations. No fever or chills. Family at bedside. Reason For Visit: PNEUMONIA, ACUTE HYPOXIC RESP FAILURE Physical Exam Vital Signs: Temp Pulse Resp BP Pulse Ox 97.7 F 67 27 H 143/64 H 93 03/25/18 17:05 03/25/18 13:53 03/25/18 18:25 03/25/18 17:05 03/25/18 18:25 Intake & Output 03/24/18 03/25/18 03/26/18 06:59 06:59 06:59 Intake Total 1700 1959 300 Output Total 1275 1400 450 Balance 425 559 -150 Weight 58.3 kg 59.2 kg General appearance: PRESENT: no acute distress Head exam: PRESENT: normocephalic Mouth exam: PRESENT: moist Respiratory exam: PRESENT: rhonchi - Rhonchorous breath sounds bilaterally, few wheezes Cardiovascular exam: PRESENT: irregular rhythm GI/Abdominal exam: PRESENT: normal bowel sounds, soft. ABSENT: tenderness Extremities exam: PRESENT: pedal edema Musculoskeletal exam: PRESENT: other - Decreased muscle mass Neurological exam: PRESENT: alert, awake, oriented to person, oriented to place, oriented to situation Psychiatric exam: PRESENT: flat affect Skin exam: PRESENT: other - Very thin skin. Occasional bruising with a skin tear. Results Laboratory Results: 03/25/18 04:08 03/25/18 04:08 03/25/18 03/25/18 03/25/18 04:08 04:08 04:08 WBC 17.6 H RBC 3.33 L Hgb 10.7 L Hct 30.6 L MCV 92 MCH 32.1 MCHC 35.0 RDW 14.8 H Plt Count 164 Seg Neutrophils % Not Reportable Lymphocytes % Not Reportable Monocytes % Not Reportable Eosinophils % Not Reportable Basophils % Not Reportable Absolute Neutrophils Not Reportable Absolute Lymphocytes Not Reportable Absolute Monocytes Not Reportable Absolute Eosinophils Not Reportable Absolute Basophils Not Reportable Carbonic Acid HCO3/H2CO3 Ratio ABG pH ABG pCO2 ABG pO2 ABG HCO3 ABG O2 Saturation ABG Base Excess FiO2 Sodium 127.2 L Potassium 3.5 L Chloride 90 L Carbon Dioxide 30 Anion Gap 7 BUN 17 Creatinine 0.28 L Est GFR ( Amer) > 60 Est GFR (Non-Af Amer) > 60 Glucose 106 Lactic Acid Cancelled Calcium 8.4 Total Bilirubin 1.0 AST 39 H ALT 24 Alkaline Phosphatase 70 Total Protein 5.5 L Albumin 2.9 L 03/25/18 03/25/18 03/25/18 04:08 06:20 09:50 WBC RBC Hgb Hct MCV MCH MCHC RDW Plt Count Seg Neutrophils % Lymphocytes % Monocytes % Eosinophils % Basophils % Absolute Neutrophils Absolute Lymphocytes Absolute Monocytes Absolute Eosinophils Absolute Basophils Carbonic Acid 1.54 H HCO3/H2CO3 Ratio 19:1 ABG pH 7.38 ABG pCO2 51.0 H ABG pO2 53.3 L ABG HCO3 29.5 H ABG O2 Saturation 86.6 L ABG Base Excess 3.4 FiO2 40% Sodium Potassium Chloride Carbon Dioxide Anion Gap BUN Creatinine Est GFR ( Amer) Est GFR (Non-Af Amer) Glucose Lactic Acid 3.6 H 2.8 H Calcium Total Bilirubin AST ALT Alkaline Phosphatase Total Protein Albumin 03/25/18 18:21 WBC RBC Hgb Hct MCV MCH MCHC RDW Plt Count Seg Neutrophils % Lymphocytes % Monocytes % Eosinophils % Basophils % Absolute Neutrophils Absolute Lymphocytes Absolute Monocytes Absolute Eosinophils Absolute Basophils Carbonic Acid 1.62 H HCO3/H2CO3 Ratio 18:1 ABG pH 7.37 ABG pCO2 53.9 H ABG pO2 59.2 L ABG HCO3 30.3 H ABG O2 Saturation 89.4 L ABG Base Excess 4.0 FiO2 60% Sodium Potassium Chloride Carbon Dioxide Anion Gap BUN Creatinine Est GFR ( Amer) Est GFR (Non-Af Amer) Glucose Lactic Acid Calcium Total Bilirubin AST ALT Alkaline Phosphatase Total Protein Albumin 03/23/18 08:40 Catheterized Urine Urine Culture - Final NO GROWTH 2 DAYS 03/17/18 12:20 Troponin I < 0.012 NT-Pro-B Natriuret Pep 6580 H Impressions: Chest Ultrasound 03/18/18 00:00 IMPRESSION: MODERATE LEFT PLEURAL EFFUSION. Chest X-Ray 03/25/18 06:00 IMPRESSION: Bilateral pneumonia. No significant change. Assessment & Plan - Diagnosis (1) Acute and chronic respiratory failure Qualifiers: Respiratory failure complication: hypoxia and hypercapnia Qualified Code(s): J96.21 - Acute and chronic respiratory failure with hypoxia; J96.22 - Acute and chronic respiratory failure with hypercapnia Is this a current diagnosis for this admission?: Yes Plan: Continue BiPAP as needed, wean off as tolerated. (2) Acute cystitis Qualifiers: Hematuria presence: without hematuria Qualified Code(s): N30.00 - Acute cystitis without hematuria Is this a current diagnosis for this admission?: Yes (3) Atrial fibrillation Qualifiers: Atrial fibrillation type: paroxysmal Qualified Code(s): I48.0 - Paroxysmal atrial fibrillation Is this a current diagnosis for this admission?: Yes Plan: Stable at this time. On diltiazem and metoprolol. On Xarelto for anticoagulation. (4) Healthcare-associated pneumonia Is this a current diagnosis for this admission?: Yes (5) Pleural effusion Is this a current diagnosis for this admission?: Yes (6) Mediastinal lymphadenopathy Is this a current diagnosis for this admission?: Yes - Plan Summary Plan Summary: Continue management otherwise.
[2018-03-25] MEDS: SIMVASTATIN 40 MG TABLET NG SCH (21:43)
[2018-03-26] MEDS: IPRATROPIUM/ALBUTEROL 0.5-2.5 MG/3 ML AMPUL NEB SCH ×4 (01:32→21:23)
[2018-03-26] MEDS: DILTIAZEM HCL 30 MG TABLET PO SCH ×3 (05:14→23:32)
[2018-03-26] MEDS: LEVOTHYROXINE SODIUM 0.025 MG TABLET NG SCH (05:14)
[2018-03-26] MEDS: BUDESONIDE NEB 0.5 MG/2 ML AMPUL NEB SCH ×2 (07:58→21:23)
[2018-03-26 07:59] LABS: ARTERIAL BLOOD BASE EXCESS 6.9 mmol/L; ARTERIAL BLOOD H2CO3 1.47 mmol/L (1.05-1.35); ARTERIAL BLOOD HCO3 32.2 mmol/L (20-24); ARTERIAL BLOOD O2 SATURATION 93.5 % (94-98); ARTERIAL BLOOD PH 7.44 (7.35-7.45); ARTERIAL BLOOD PO2 66.5 mmHg (80-100); ARTERIAL BLOOD TOTAL CO2 33.7 mmol/L (21-25)
[2018-03-26 08:00] LABS: ARTERIAL BLOOD FIO2 60%
[2018-03-26 08:40] LABS: HEMATOCRIT 29.8 % (36.0-47.0); HEMOGLOBIN 10.3 g/dL (12.0-15.5); MEAN CORPUSCULAR HGB CONC 34.7 g/dL (32.0-36.0); MEAN CORPUSCULAR VOLUME 92 fl (80-97); PLATELET COUNT 137 10^3/uL (150-450); RED BLOOD COUNT 3.23 10^6/uL (3.72-5.28); RED CELL DISTRIBUTION WIDTH 14.6 % (11.5-14.0); WHITE BLOOD COUNT 14.1 10^3/uL (4.0-10.5)
[2018-03-26 08:49] LABS: ANION GAP 7 (5-19); BLOOD UREA NITROGEN 17 mg/dL (7-20); CALCIUM 8.8 mg/dL (8.4-10.2); CARBON DIOXIDE 31 mmol/L (22-30); CHLORIDE 91 mmol/L (98-107); GLUCOSE 85 mg/dL (75-110); PHOSPHORUS 2.2 mg/dL (2.5-4.5); POTASSIUM 3.2 mmol/L (3.6-5.0); SODIUM 129.3 mmol/L (137-145)
[2018-03-26] MEDS ORDERED: METOPROLOL TARTRATE PF/INJ 5 MG/5 ML SDV IV ONE (09:01)
[2018-03-26 09:07] LABS: ABSOLUTE LYMPHOCYTES# (MANUAL) 0.4 10^3/uL (0.5-4.7); ABSOLUTE MONOCYTES # (MANUAL) 1.3 10^3/uL (0.1-1.4); ABSOLUTE NEUTROPHILS# (MANUAL) 12.4 10^3/uL (1.7-8.2); BASOPHILS % (MANUAL) 0 % (0-2); EOSINOPHILS % (MANUAL) 0 % (0-6); LYMPHOCYTES % (MANUAL) 3 % (13-45); MONOCYTES % (MANUAL) 9 % (3-13); OVALOCYTES 1+; PLATELET COMMENT ADEQUATE; POIKILOCYTOSIS 1+; POLYCHROMASIA SLIGHT; SEGMENTED NEUTROPHILS % (MAN) 88 % (42-78); TEAR DROP CELLS SLIGHT; TOTAL CELLS COUNTED 100; TOXIC GRANULATION 1+
[2018-03-26] MEDS: RIVAROXABAN 15 MG TABLET NG SCH ×2 (09:10→16:21)
[2018-03-26] MEDS ORDERED: METOPROLOL TARTRATE PF/INJ 5 MG/5 ML SDV IV PRN (09:13)
[2018-03-26] MEDS: FAMOTIDINE INJ/PF 20 MG/2 ML SDV IV SCH ×2 (09:58→23:32)
[2018-03-26] MEDS: POTASSIUM CHLORIDE 20 MEQ/15 ML UDCUP NG SCH (09:58)
[2018-03-26] MEDS: FUROSEMIDE 20 MG TABLET NG SCH ×2 (09:58→12:39)
[2018-03-26] MEDS: PREDNISONE 20 MG TABLET NG SCH ×2 (09:58→12:39)
[2018-03-26] MEDS: SPIRONOLACTONE 25 MG TABLET NG SCH ×2 (10:00→12:39)
[2018-03-26] MEDS: LISINOPRIL 5 MG TABLET PO SCH ×3 (10:02→23:37)
[2018-03-26] MEDS: METOPROLOL TARTRATE 50 MG TABLET NG SCH ×3 (10:03→23:31)
[2018-03-26 10:50] LABS: APPEARANCE,URINE CLOUDY; BILIRUBIN,URINE NEGATIVE (NEGATIVE); CALCIUM OXALATE CRYSTALS,URINE FEW /HPF; COLOR,URINE AMBER; GLUCOSE, URINE NEGATIVE (NEGATIVE); KETONES,URINE TRACE mg/dL (NEGATIVE); LEUKOCYTE ESTERASE,URINE MODERATE (NEGATIVE); NITRITE,URINE NEGATIVE (NEGATIVE); PROTEIN,URINE 100 mg/dL (NEGATIVE); UROBILINOGEN,URINE NEGATIVE mg/dL (<2.0)
[2018-03-26 12:59] LABS: INTERNATIONAL RATION (INR) 2.61; PROTHROMBIN TIME 29.1 SEC (11.4-15.4)
[2018-03-26 13:20] LABS: CREATINE KINASE MB 2.81 ng/mL (<4.55); TROPONIN I 0.02 ng/mL
--- NOTE | 2018-03-26 14:23 | RADIOLOGY REPORT (SQ) ---
EXAM DESCRIPTION: CHEST SINGLE VIEW COMPLETED DATE/TIME: 03/26/2018 1:31 pm REASON FOR STUDY: chest pain COMPARISON: None. NUMBER OF VIEWS: One view. TECHNIQUE: Single frontal radiographic image of the chest acquired. LIMITATIONS: None. FINDINGS: LUNGS AND PLEURA: Bilateral pleural effusions and associated airspace disease, right great er than left not significantly changed. MEDIASTINUM AND HEART: Stable heart size and mediastinal structures. BONY STRUCTURES: No acute findings. HARDWARE: None. OTHER: No other significant finding. IMPRESSION: Bilateral pneumonia. No significant change. TECHNICAL DOCUMENTATION: JOB ID: [id number] Reading location - IP/workstation name: [email or web address]
--- NOTE | 2018-03-26 15:09 | EKG REPORT ---
SEVERITY:- ABNORMAL ECG - ATRIAL FIBRILLATION, V-RATE 60-91 INCOMPLETE RIGHT BUNDLE BRANCH BLOCK PROBABLE ANTEROSEPTAL INFARCT, AGE INDETERM : Confirmed by: Hoda Gordon 26-Mar-2018 15:08:23
[2018-03-26] MEDS: POTASSIUM CHLORIDE 20 MEQ/50 ML RTU IV SCH ×2 (16:20→17:24)
--- NOTE | 2018-03-26 18:04 | PDOC PROGRESS REPORT ---
Subjective Progress Note for:: 03/26/18 Subjective:: Extubated 03/23/18. Awake, still relying a lot on BiPAP. Denies chest pain or palpitations. No fever or chills. Family at bedside. Reason For Visit: PNEUMONIA, ACUTE HYPOXIC RESP FAILURE Physical Exam Vital Signs: Temp Pulse Resp BP Pulse Ox 97.7 F 87 21 H 117/60 92 03/26/18 14:00 03/26/18 14:04 03/26/18 14:04 03/26/18 13:07 03/26/18 14:04 Intake & Output 03/25/18 03/26/18 03/27/18 06:59 06:59 06:59 Intake Total 1959 300 27 Output Total 1400 1275 185 Balance 609 -895 -780 Weight 59.2 kg 59.3 kg General appearance: PRESENT: no acute distress Head exam: PRESENT: normocephalic, left eye bloodshot but no tenderness or swelling Mouth exam: PRESENT: moist Respiratory exam: PRESENT: rhonchi - Rhonchorous breath sounds bilaterally, few wheezes Cardiovascular exam: PRESENT: irregular rhythm GI/Abdominal exam: PRESENT: normal bowel sounds, soft. ABSENT: tenderness Extremities exam: PRESENT: pedal edema Musculoskeletal exam: PRESENT: other - Decreased muscle mass Neurological exam: PRESENT: alert, awake, oriented to person, oriented to place, oriented to situation Skin exam: PRESENT: other - Very thin skin. Occasional bruising with a skin tear. Results Laboratory Results: 03/26/18 08:21 03/26/18 08:21 03/25/18 03/26/18 03/26/18 18:21 07:45 08:21 WBC 14.1 H RBC 3.23 L Hgb 10.3 L Hct 29.8 L MCV 92 MCH 32.0 MCHC 34.7 RDW 14.6 H Plt Count 137 L Seg Neutrophils % Not Reportable Lymphocytes % Not Reportable Monocytes % Not Reportable Eosinophils % Not Reportable Basophils % Not Reportable Absolute Neutrophils Not Reportable Absolute Lymphocytes Not Reportable Absolute Monocytes Not Reportable Absolute Eosinophils Not Reportable Absolute Basophils Not Reportable Carbonic Acid 1.62 H 1.47 H HCO3/H2CO3 Ratio 18:1 21:1 ABG pH 7.37 7.44 ABG pCO2 53.9 H 49.0 H ABG pO2 59.2 L 66.5 L ABG HCO3 30.3 H 32.2 H ABG O2 Saturation 89.4 L 93.5 L ABG Base Excess 4.0 6.9 FiO2 60% 60% Sodium Potassium Chloride Carbon Dioxide Anion Gap BUN Creatinine Est GFR ( Amer) Est GFR (Non-Af Amer) Glucose Lactic Acid Calcium Phosphorus Magnesium Urine Color Urine Appearance Urine pH Ur Specific [place] Urine Protein Urine Glucose (UA) Urine Ketones Urine Blood Urine Nitrite Ur Leukocyte Esterase Urine WBC (Auto) Urine RBC (Auto) 03/26/18 03/26/18 03/26/18 08:21 08:21 10:30 WBC RBC Hgb Hct MCV MCH MCHC RDW Plt Count Seg Neutrophils % Lymphocytes % Monocytes % Eosinophils % Basophils % Absolute Neutrophils Absolute Lymphocytes Absolute Monocytes Absolute Eosinophils Absolute Basophils Carbonic Acid HCO3/H2CO3 Ratio ABG pH ABG pCO2 ABG pO2 ABG HCO3 ABG O2 Saturation ABG Base Excess FiO2 Sodium 129.3 L Potassium 3.2 L Chloride 91 L Carbon Dioxide 31 H Anion Gap 7 BUN 17 Creatinine 0.38 L Est GFR ( Amer) > 60 Est GFR (Non-Af Amer) > 60 Glucose 85 Lactic Acid 2.3 H Calcium 8.8 Phosphorus 2.2 L Magnesium 1.8 Urine Color ANNAMARIE Urine Appearance CLOUDY Urine pH 6.0 Ur Specific [place] 1.020 Urine Protein 100 H Urine Glucose (UA) NEGATIVE Urine Ketones TRACE H Urine Blood LARGE H Urine Nitrite NEGATIVE Ur Leukocyte Esterase MODERATE H Urine WBC (Auto) >182 Urine RBC (Auto) >182 03/17/18 03/26/18 03/26/18 12:20 08:21 12:45 Creatine Kinase < 20 L CK-MB (CK-2) Troponin I < 0.012 NT-Pro-B Natriuret Pep 6580 H 4050 H 03/26/18 12:45 Creatine Kinase CK-MB (CK-2) 2.81 Troponin I 0.020 NT-Pro-B Natriuret Pep Impressions: Chest Ultrasound 03/18/18 00:00 IMPRESSION: MODERATE LEFT PLEURAL EFFUSION. Chest X-Ray 03/26/18 00:00 IMPRESSION: Bilateral pneumonia. No significant change. Assessment & Plan - Diagnosis (1) Acute and chronic respiratory failure Qualifiers: Respiratory failure complication: hypoxia and hypercapnia Qualified Code(s): J96.21 - Acute and chronic respiratory failure with hypoxia; J96.22 - Acute and chronic respiratory failure with hypercapnia Is this a current diagnosis for this admission?: Yes Plan: Continue BiPAP as needed, wean off as tolerated. Continue prednisone--will increase to bid. White blood cells still elevated, although may be secondary to steroids. Patient also with hypoxia and x-ray showing persistent pneumonia. Will reinstitute antibiotics with Levaquin at this time. (2) Acute cystitis Qualifiers: Hematuria presence: without hematuria Qualified Code(s): N30.00 - Acute cystitis without hematuria Is this a current diagnosis for this admission?: Yes (3) Atrial fibrillation Qualifiers: Atrial fibrillation type: paroxysmal Qualified Code(s): I48.0 - Paroxysmal atrial fibrillation Is this a current diagnosis for this admission?: Yes Plan: Stable at this time. On diltiazem and metoprolol. Hold Xarelto today due to easy bruising and possible conjunctival hemorrhage. Will consider using low- dose Eliquis instead for coagulation. (4) Healthcare-associated pneumonia Is this a current diagnosis for this admission?: Yes Plan: Levaquin (5) Pleural effusion Is this a current diagnosis for this admission?: Yes Plan: Continue diuresis. (6) Mediastinal lymphadenopathy Is this a current diagnosis for this admission?: Yes (7) Hypokalemia Is this a current diagnosis for this admission?: Yes Plan: Correct electrolytes as needed. (8) Hyponatremia Is this a current diagnosis for this admission?: Yes (9) Coronary artery disease involving autologous artery coronary bypass graft Is this a current diagnosis for this admission?: Yes
[2018-03-26] MEDS ORDERED: PREDNISONE 20 MG TABLET NG SCH (19:00)
[2018-03-26] MEDS ORDERED: LEVOFLOXACIN 500 MG/D5W RTU 500 MG/100 ML RTUPB IV SCH (19:30)
[2018-03-26] MEDS: HALOPERIDOL LACTATE INJ 5 MG/1 ML VIAL IV PRN ×2 (20:10→23:33)
[2018-03-26] MEDS ORDERED: HALOPERIDOL LACTATE INJ 5 MG/1 ML VIAL ONE (20:10)
[2018-03-26] MEDS: SIMVASTATIN 40 MG TABLET NG SCH (23:38)
[2018-03-26 23:54] VITALS: BP 125/66
[2018-03-27 01:35] LABS: ARTERIAL BLOOD BASE EXCESS 2.2 mmol/L; ARTERIAL BLOOD FIO2 75%; ARTERIAL BLOOD H2CO3 1.64 mmol/L (1.05-1.35); ARTERIAL BLOOD HCO3 28.7 mmol/L (20-24); ARTERIAL BLOOD O2 SATURATION 74.1 % (94-98); ARTERIAL BLOOD PCO2 54.6 mmHg (35-45); ARTERIAL BLOOD PH 7.34 (7.35-7.45); ARTERIAL BLOOD PO2 42.3 mmHg (80-100); ARTERIAL BLOOD TOTAL CO2 30.4 mmol/L (21-25)
[2018-03-27] MEDS: IPRATROPIUM/ALBUTEROL 0.5-2.5 MG/3 ML AMPUL NEB SCH (02:00)
[2018-03-27 02:06] LABS: ARTERIAL BLOOD BASE EXCESS -5.2 mmol/L; ARTERIAL BLOOD FIO2 100%; ARTERIAL BLOOD H2CO3 2.26 mmol/L (1.05-1.35); ARTERIAL BLOOD HCO3 24.8 mmol/L (20-24); ARTERIAL BLOOD O2 SATURATION 89.2 % (94-98); ARTERIAL BLOOD PO2 73.8 mmHg (80-100); ARTERIAL BLOOD TOTAL CO2 27.1 mmol/L (21-25)
[2018-03-27 02:07] LABS: ARTERIAL BLOOD PCO2 75.2 mmHg (35-45); ARTERIAL BLOOD PH 7.14 (7.35-7.45)
[2018-03-27 02:08] LABS: HEMATOCRIT 28.9 % (36.0-47.0); HEMOGLOBIN 9.9 g/dL (12.0-15.5); MEAN CORPUSCULAR HEMOGLOBIN 32.5 pg (27.0-33.4); MEAN CORPUSCULAR HGB CONC 34.2 g/dL (32.0-36.0); MEAN CORPUSCULAR VOLUME 95 fl (80-97); PLATELET COUNT 162 10^3/uL (150-450); RED BLOOD COUNT 3.04 10^6/uL (3.72-5.28); RED CELL DISTRIBUTION WIDTH 15.1 % (11.5-14.0); WHITE BLOOD COUNT 18.7 10^3/uL (4.0-10.5)
[2018-03-27] MEDS ORDERED: MORPHINE SULFATE 10 MG/ML INJ ONE (02:13)
[2018-03-27] MEDS ORDERED: LORAZEPAM INJ 2 MG/1 ML VIAL ONE (02:14)
[2018-03-27 02:15] LABS: PROTHROMBIN TIME 26.4 SEC (11.4-15.4)
[2018-03-27 02:26] LABS: ALANINE AMINOTRANSFERASE 26 U/L (9-52); ALBUMIN 2.9 g/dL (3.5-5.0); ALKALINE PHOSPHATASE 82 U/L (38-126); ANION GAP 10 (5-19); ASPARTATE AMINO TRANSFERASE 40 U/L (14-36); BILIRUBIN,DIRECT 0.5 mg/dL (0.0-0.4); BILIRUBIN,TOTAL 1.3 mg/dL (0.2-1.3); BLOOD UREA NITROGEN 22 mg/dL (7-20); CALCIUM 8.6 mg/dL (8.4-10.2); CARBON DIOXIDE 27 mmol/L (22-30); CHLORIDE 94 mmol/L (98-107); GLUCOSE 126 mg/dL (75-110); SODIUM 130.6 mmol/L (137-145); TOTAL PROTEIN 5.3 g/dL (6.3-8.2)
[2018-03-27 02:27] LABS: ABSOLUTE LYMPHOCYTES# (MANUAL) 0.9 10^3/uL (0.5-4.7); ABSOLUTE MONOCYTES # (MANUAL) 1.3 10^3/uL (0.1-1.4); ABSOLUTE NEUTROPHILS# (MANUAL) 16.5 10^3/uL (1.7-8.2); BASOPHILS % (MANUAL) 0 % (0-2); EOSINOPHILS % (MANUAL) 0 % (0-6); LYMPHOCYTES % (MANUAL) 5 % (13-45); MONOCYTES % (MANUAL) 7 % (3-13); SEGMENTED NEUTROPHILS % (MAN) 88 % (42-78); TOTAL CELLS COUNTED 100
[2018-03-27 02:29] LABS: TOXIC GRANULATION 1+; TOXIC VACUOLATION PRESENT
[2018-03-27 02:30] LABS: ANISOCYTOSIS 1+; HELMET CELLS 1+; OVALOCYTES 2+; PLATELET COMMENT ADEQUATE; POIKILOCYTOSIS 2+; TEAR DROP CELLS SLIGHT
[2018-03-27 02:36] LABS: POTASSIUM 4.6 mmol/L (3.6-5.0)
--- NOTE | 2018-03-27 02:40 | RADIOLOGY REPORT (SQ) ---
EXAM DESCRIPTION: XR CHEST 1 VIEW COMPLETED DATE/TME: 03/27/2018 00:00 CLINICAL HISTORY: 82 years, Female, RESP DISTRESS COMPARISON: 03/26/2018 chest x-ray NUMBER OF VIEWS: 1 TECHNIQUE: Frontal view chest LIMITATIONS: None. FINDINGS: Cardiomegaly with stable postsurgical change. Overlying artifact. Interstitial and airspace opacities bilaterally, as before. Layering effusions as before. No discrete pneumothorax. IMPRESSION: Allowing for differences in technique, little interval change copyright 2011 [employer]- All Rights Reserved
--- NOTE | 2018-03-27 04:56 | Progress Note ---
Provider Note Provider Note: CODE BLUE: Time of CODE BLUE 1:41 AM: I responded immediately to the CODE BLUE as I was in the ICU evaluating this pa tient from a previous call and interaction. Patient had been having increasing respiratory difficulty since approximately 1 AM and auditory evaluations as well as chest x-ray were ordered however the chest x-ray had not yet been obtained. Patient was found to be bradycardic and hypotensive resulting in a rapid response and a CODE BLUE. She was treated with chest compressions and ACLS protocols utilizing epinephrine to support her rate and blood pressure. After 2 doses of epinephrine her blood pressure and heart rate were adequate to support her life functions at 1:47 AM. . Her respiratory status was poor with persistent hypoxia despite AVAPS using 100% oxygen on an accelerated respiratory rate. Her PO2 was in the 50s and her PCO2 was climbing. At this point her family was notified and after a brief discussion they decided to not intubate their mother again and to allow her to have a with dignity. As such comfort measures were employed immediately. Total time of critical care: 22 minutes
[2018-03-27] MEDS ORDERED: EPINEPHRINE INJ 1 MG/10 ML DISP.SYRIN ONE (15:27)
--- NOTE | 2018-03-28 20:43 | Death Summary ---
Summary Date : 03/27/18 Time of :: 02:42 Autopsy: No Resuscitation Status: Do Not Resuscitate - Final Diagnosis (1) Healthcare-associated pneumonia Is this a current diagnosis for this admission?: Yes (2) Acute and chronic respiratory failure Is this a current diagnosis for this admission?: Yes (3) Acute cystitis Is this a current diagnosis for this admission?: Yes (4) Atrial fibrillation Is this a current diagnosis for this admission?: Yes (5) Pleural effusion Is this a current diagnosis for this admission?: Yes (6) Mediastinal lymphadenopathy Is this a current diagnosis for this admission?: Yes (7) Hypokalemia Is this a current diagnosis for this admission?: Yes (8) Hyponatremia Is this a current diagnosis for this admission?: Yes (9) Coronary artery disease involving autologous artery coronary bypass graft Is this a current diagnosis for this admission?: Yes Hospital Course:: Afsaneh Goodwin was an 82-year-old female with chronic pleural effusion, A. fib and other comorbidities, who presented to the ED with shortness of breath and was found to be in acute respiratory failure requiring intubation. She was managed with vent support as well as treated for healthcare associated pneumonia among others. Patient improved and was extubated. Unfortunately, she did not do well and was increasingly short of breath and requiring continuous BiPAP. By the early mornings of 03/27/18, she deteriorated again, became hypotensive, went into cardiac arrest and was resuscitated. Family was called about possible reintubation, but they decided to make patient DNR and comfort care. Patient was managed for comfort. She at 02:42 a.m. For details of current hospitalization please see the electronic medical records. Thank you.
--- NOTE | 2018-03-29 10:18 | PDOC PROGRESS REPORT ---
Subjective Progress Note for:: 03/26/18 Subjective:: Relying more on BiPAP Reason For Visit: PNEUMONIA, ACUTE HYPOXIC RESP FAILURE Physical Exam Vital Signs: Temp Pulse Resp BP Pulse Ox 97.9 F 110 H 34 H 153/85 H 100 03/26/18 09:05 03/26/18 07:58 03/26/18 11:34 03/26/18 09:05 03/26/18 11:34 Intake & Output 03/25/18 03/26/18 03/27/18 06:59 06:59 06:59 Intake Total 1959 300 Output Total 1400 1275 185 Balance 559 -975 -185 Weight 59.2 kg 59.3 kg General appearance: PRESENT: no acute distress, cooperative, disheveled Head exam: PRESENT: atraumatic, normocephalic Eye exam: PRESENT: conjunctiva pale, nystagmus, scleral icterus Mouth exam: PRESENT: dry mucosa, neck supple, tongue midline Neck exam: ABSENT: carotid bruit, JVD, lymphadenopathy, thyromegaly, tracheal deviation, tracheostomy Respiratory exam: PRESENT: decreased breath sounds, prolonged expiratory phas, rales, rhonchi, tachypnea, unlabored. ABSENT: retraction, stridor Cardiovascular exam: PRESENT: RRR, +S1, +S2 Pulses: PRESENT: normal radial pulses GI/Abdominal exam: PRESENT: soft. ABSENT: tenderness Extremities exam: PRESENT: pedal edema. ABSENT: calf tenderness, clubbing Musculoskeletal exam: ABSENT: deformity, dislocation Neurological exam: PRESENT: awake Psychiatric exam: PRESENT: appropriate affect Skin exam: PRESENT: dry, warm Results Laboratory Results: 03/26/18 08:21 03/26/18 08:21 03/25/18 03/26/18 03/26/18 18:21 07:45 08:21 WBC 14.1 H RBC 3.23 L Hgb 10.3 L Hct 29.8 L MCV 92 MCH 32.0 MCHC 34.7 RDW 14.6 H Plt Count 137 L Seg Neutrophils % Not Reportable Lymphocytes % Not Reportable Monocytes % Not Reportable Eosinophils % Not Reportable Basophils % Not Reportable Absolute Neutrophils Not Reportable Absolute Lymphocytes Not Reportable Absolute Monocytes Not Reportable Absolute Eosinophils Not Reportable Absolute Basophils Not Reportable Carbonic Acid 1.62 H 1.47 H HCO3/H2CO3 Ratio 18:1 21:1 ABG pH 7.37 7.44 ABG pCO2 53.9 H 49.0 H ABG pO2 59.2 L 66.5 L ABG HCO3 30.3 H 32.2 H ABG O2 Saturation 89.4 L 93.5 L ABG Base Excess 4.0 6.9 FiO2 60% 60% Sodium Potassium Chloride Carbon Dioxide Anion Gap BUN Creatinine Est GFR ( Amer) Est GFR (Non-Af Amer) Glucose Lactic Acid Calcium Phosphorus Magnesium Urine Color Urine Appearance Urine pH Ur Specific Scott Urine Protein Urine Glucose (UA) Urine Ketones Urine Blood Urine Nitrite Ur Leukocyte Esterase Urine WBC (Auto) Urine RBC (Auto) 03/26/18 03/26/18 03/26/18 08:21 08:21 10:30 WBC RBC Hgb Hct MCV MCH MCHC RDW Plt Count Seg Neutrophils % Lymphocytes % Monocytes % Eosinophils % Basophils % Absolute Neutrophils Absolute Lymphocytes Absolute Monocytes Absolute Eosinophils Absolute Basophils Carbonic Acid HCO3/H2CO3 Ratio ABG pH ABG pCO2 ABG pO2 ABG HCO3 ABG O2 Saturation ABG Base Excess FiO2 Sodium 129.3 L Potassium 3.2 L Chloride 91 L Carbon Dioxide 31 H Anion Gap 7 BUN 17 Creatinine 0.38 L Est GFR ( Amer) > 60 Est GFR (Non-Af Amer) > 60 Glucose 85 Lactic Acid 2.3 H Calcium 8.8 Phosphorus 2.2 L Magnesium 1.8 Urine Color ANNAMARIE Urine Appearance CLOUDY Urine pH 6.0 Ur Specific Scott 1.020 Urine Protein 100 H Urine Glucose (UA) NEGATIVE Urine Ketones TRACE H Urine Blood LARGE H Urine Nitrite NEGATIVE Ur Leukocyte Esterase MODERATE H Urine WBC (Auto) >182 Urine RBC (Auto) >182 03/23/18 08:40 Catheterized Urine Urine Culture - Final NO GROWTH 2 DAYS 03/17/18 03/26/18 12:20 08:21 Troponin I < 0.012 NT-Pro-B Natriuret Pep 6580 H 4050 H Impressions: Chest Ultrasound 03/18/18 00:00 IMPRESSION: MODERATE LEFT PLEURAL EFFUSION. Chest X-Ray 03/25/18 06:00 IMPRESSION: Bilateral pneumonia. No significant change. Assessment & Plan - Diagnosis (1) Acute and chronic respiratory failure Qualifiers: Respiratory failure complication: hypoxia and hypercapnia Qualified Code(s): J96.21 - Acute and chronic respiratory failure with hypoxia; J96.22 - Acute and chronic respiratory failure with hypercapnia Is this a current diagnosis for this admission?: Yes Plan: reliant on BiPAP (2) Atrial fibrillation Qualifiers: Atrial fibrillation type: paroxysmal Qualified Code(s): I48.0 - Paroxysmal atrial fibrillation Is this a current diagnosis for this admission?: Yes Plan: Stable at this time (3) Pleural effusion Is this a current diagnosis for this admission?: Yes Plan: Vertex catheter on the right loculated pleural effusions with effusion on the left as well (4) HTN (hypertension) Is this a current diagnosis for this admission?: Yes Plan: Stable at this time (5) Mediastinal lymphadenopathy Is this a current diagnosis for this admission?: Yes Plan: And has undergone fiberoptic bronchoscopy that was nondiagnostic if patient could be stabilized mediastinoscopy was certainly be appropriate as she said this lymphadenopathy quite a while - Time Total Critical Time (Minutes): 40
== END 2018-03-27 02:42 | DRG 870 ==
LOC: ER 11:32 → EH 13:36 → ICU 03-18 01:00
PROVIDERS: ADMIT Internal Medicine; ATTEND Internal Medicine
PROC: 5A1955Z Respiratory Ventilation, Greater than 96 Consecutive Hours (ICD-10-PCS; principal; 2018-03-17)
PROC: 0BH17EZ Insertion of Endotracheal Airway into Trachea, Via Natural or Artificial Opening (ICD-10-PCS; 2018-03-17)
DX: A41.9 Sepsis, unspecified organism (principal); J18.9 Pneumonia, unspecified organism; J96.21 Acute and chronic respiratory failure with hypoxia; J96.22 Acute and chronic respiratory failure with hypercapnia; E87.1 Hypo-osmolality and hyponatremia; N30.00 Acute cystitis without hematuria; J91.8 Pleural effusion in other conditions classified elsewhere; Z66 Do not resuscitate; Z51.5 Encounter for palliative care; R65.20 Severe sepsis without septic shock; B95.2 Enterococcus as the cause of diseases classified elsewhere; E87.5 Hyperkalemia; Z86.711 Personal history of pulmonary embolism; I25.10 Atherosclerotic heart disease of native coronary artery without angina pectoris; R59.1 Generalized enlarged lymph nodes; I11.0 Hypertensive heart disease with heart failure; E87.6 Hypokalemia; I25.2 Old myocardial infarction; I50.9 Heart failure, unspecified; I48.0 Paroxysmal atrial fibrillation; E03.9 Hypothyroidism, unspecified; Z79.899 Other long term (current) drug therapy; M19.90 Unspecified osteoarthritis, unspecified site; Z95.1 Presence of aortocoronary bypass graft; Z96.651 Presence of right artificial knee joint; Z82.49 Family history of ischemic heart disease and other diseases of the circulatory system; Z88.6 Allergy status to analgesic agent; Z88.8 Allergy status to other drugs, medicaments and biological substances; Y95 Nosocomial condition; Z97.8 Presence of other specified devices
CPT/HCPCS: 36415; 36600; 71045; 76604; 80048; 80053; 80202; 81001; 82550; 82553; 82803; 82962; 83605; 83735; 83880; 84100; 84133; 84300; 84484; 85025; 85610; 85730; 87040; 87070; 87086; 87088; 87186; 87205; 92950; 93005; 93010; 94002; 94003; 94640; 94660; 94668; 99291; J0171; J0330; J0610; J0692; J1100; J1630; J1940; J1956; J2060; J2250; J2270; J3010; J3370; J3480; J3490; J7030; J7050; J7060; J7120; J7512; J7620; S0028